=== PATIENT | female | born 1945 | race African-American/Black ===

== ENCOUNTER 2017-05-23 15:55 | Inpatient (IN) | payer MEDICARE, BC ==
[~2017-05-23] VITALS: Ht 165.1 cm; Wt 54.3 kg
[~2017-05-23 15:55] MED LIST: ADAL30TA10 PO; FLUTI220I INH; RHINSUS; ZOCO80TA PO; [UNRECOGNIZED DRUG - OTHER] PO; lumigan EACH EYE
[2017-05-23 16:08] VITALS: BP 173/79; PULSE 79; RESP 20; TEMP 98.5; O2SAT 96
[2017-05-23 17:24] LABS: AUTOMATED NEUTROPHIL # 2.6 TH/MM3 (1.8-7.7); BASOPHIL % 0.8 % (0.0-2.0); EOSINOPHIL # 0.1 TH/MM3 (0-0.4); EOSINOPHIL % 2.9 % (0.0-4.0); HEMATOCRIT 41.2 % (35.0-46.0); HEMOGLOBIN 13.8 GM/DL (11.6-15.3); LYMPH % 23.4 % (9.0-44.0); LYMPHOCYTE # 1.1 TH/MM3 (1.0-4.8); MEAN CELL VOLUME 76.2 FL (80.0-100.0); MEAN CORPUSCULAR HEMOGLOBIN 25.6 PG (27.0-34.0); MEAN CORPUSCULAR HGB CONC 33.6 % (32.0-36.0); MEAN PLATELET VOLUME 6.1 FL (7.0-11.0); MONO % 16.5 % (0.0-8.0); MONOCYTE # 0.8 TH/MM3 (0-0.9); NEUT % 56.4 % (16.0-70.0); PLATELET COUNT 432 TH/MM3 (150-450); RED CELL DISTRIBUTION WIDTH 13.4 % (11.6-17.2); WHITE BLOOD COUNT 4.7 TH/MM3 (4.0-11.0)
[2017-05-23 17:36] LABS: BICARBONATE 30.8 MEQ/L (21.0-32.0); BLOOD UREA NITROGEN 11 MG/DL (7-18); CHLORIDE 90 MEQ/L (98-107); GLOMERULAR FILTRATION RATE 85 ML/MIN (>89); GLUCOSE,RANDOM 96 MG/DL (74-106); SODIUM (NA) 125 MEQ/L (136-145)
[2017-05-23 17:40] LABS: TROPONIN I LESS THAN 0.02 NG/ML (0.02-0.05)
[2017-05-23 20:10] VITALS: BP 185/85; PULSE 72; RESP 18; O2SAT 100
[2017-05-23] MEDS ORDERED: LUMI0.01 EACH EYE (20:39)
[2017-05-23] MEDS ORDERED: DOXA4TAB3 PO (20:39)
[2017-05-23] MEDS ORDERED: FOSA70TA PO (20:39)
[2017-05-23] MEDS ORDERED: VENTAER INH (20:39)
[2017-05-23] MEDS ORDERED: AMPICILLIN (20:39)
[2017-05-23] MEDS ORDERED: FLUT50SP EACH NARE (20:39)
[2017-05-23] MEDS ORDERED: SERT-132 PO (20:39)
[2017-05-23] MEDS ORDERED: FLUTI44I INH (20:39)
[2017-05-23] MEDS ORDERED: LOVA40TA PO (20:39)
--- NOTE | 2017-05-23 21:20 | RADRPT ---
EXAM DATE/TIME: 05/23/2017 21:01 [facility] COMPARISON: No previous studies available for comparison. INDICATIONS : Shortness of breath. Patient had a fall due to increasing loss of balance about 2-3 hours ago. MEDICAL HISTORY : Hypertension. Asthma. SURGICAL HISTORY : Cyst removed from breast. ENCOUNTER: Initial ACUITY: 1 day PAIN SCORE: 0/10 LOCATION: Bilateral chest FINDINGS: A single view of the chest demonstrates the lungs to be symmetrically aerated without evidence of mas s, infiltrate or effusion. 8mm calcified granuloma lower lateral right lung. The cardiomediastinal contours are unremarkable. Moderate curvature of the thoracolumbar region convex towards the left.. CONCLUSION: No infiltrates seen. Jadon Hou MD on May 23, 2017 at 21:17 Board Certified Radiologist. This report was verified electronically.
--- NOTE | 2017-05-23 21:25 | PD ---
HPI Chief Complaint: General Weakness Time Seen by Provider: 20:32 Travel History International Travel<30 days: No Contact w/Intl Traveler<30days: No Traveled to known affect area: No History of Present Illness HPI Patient is a 72-year-old female presenting to the emergency department for evaluation of weakness. Caregivers are at bedside and state patient has had an increased amount of falls over the last several weeks, they report that her hands are shaky and she is forgetful. They state that she saw her primary doctor on Friday and nothing was done. They are concerned because patient lives alone, her sister will not be here until Friday. Patient denies any chest pain, shortness of breath, abdominal pain, headache. Caregivers believe that she may not be eating correctly or often enough. Symptom onset appears gradual, symptom severity is mild to moderate, there are no alleviating or exacerbating factors. They state that her primary doctor put her on antibiotics on Friday for a "slight UTI". Patient denies any dysuria. PFSH Past Medical History Asthma: Yes Cancer: No High Cholesterol: Yes Glaucoma: Yes Hypertension: Yes Medical other: Yes (hx of stomach ulcers in 1994 anemia with it) Respiratory: Yes (asthma) Immunizations Current: Yes Tetanus Vaccination: > 5 Years Influenza Vaccination: Yes Menopausal: Yes : 0 Past Surgical History Gynecologic Surgery: Yes (cyst removed from right and left breast left oophorectomy) Oral Surgery: Yes Other Surgery: Yes Social History Alcohol Use: Yes (wine at nite) Tobacco Use: No Substance Use: No Allergies-Medications (Allergen,Severity, Reaction): Coded Allergies: No Known Allergies (Unverified , 07/26/09) Reported Meds & Prescriptions Reported Meds & Active Scripts Active Reported Ventolin Hfa 18 GM Inh (Albuterol Sulfate) 90 Mcg/Act Aer 2 Puff INH Q4-6H PRN Fluticasone Nasal [place] 50 Mcg/Act Naspr 50 Mcg EACH NARE DIRECTED 50 mcg/spray Fosamax (Alendronate Sodium) 70 Mg Tab 70 Mg PO Q7D Lovastatin 40 Mg Tab 40 Mg PO DAILY Lumigan Opth Drops (Bimatoprost) 0.01% Soln 1 Drop EACH EYE HS Flovent Hfa 10.6 GM Inh (Fluticasone Propionate) 44 Mcg/Act Inh 2 Puff INH BID Use daily at the same time. Doxazosin (Doxazosin Mesylate) 4 Mg Tab 4 Mg PO DAILY [Ampicillin] Sertraline (Sertraline HCl) 50 Mg Tab 50 Mg PO DAILY Review of Systems Except as stated in HPI: all other systems reviewed are Neg HENT: No: Headaches Cardiovascular: No: Chest Pain or Discomfort Respiratory: No: Shortness of Breath Gastrointestinal: No: Nausea Genitourinary: No: Dysuria Musculoskeletal: No: Myalgias Neurologic: Positive: Weakness, Coordination Problem, Tremor Physical Exam Narrative GENERAL: Thin, well-developed, alert -[place]ian female. Presenting in no acute distress. SKIN: Warm and dry. HEAD: Atraumatic. Normocephalic. EYES: Pupils equal and round. No scleral icterus. No injection or drainage. ENT: No nasal bleeding or discharge. Mucous membranes pink and moist. NECK: Trachea midline. No JVD. CARDIOVASCULAR: Regular rate and rhythm. RESPIRATORY: No accessory muscle use. Clear to auscultation. Breath sounds equal bilaterally. GASTROINTESTINAL: Abdomen soft, non-tender, nondistended. Hepatic and splenic margins not palpable. MUSCULOSKELETAL: Extremities without clubbing, cyanosis. No obvious deformities. Trace nonpitting edema to bilateral lower extremities. NEUROLOGICAL: Awake and alert. No obvious cranial nerve deficits. Motor grossly within normal limits. Five out of 5 muscle strength in the arms and legs. Normal speech. PSYCHIATRIC: Appropriate mood and affect; insight and judgment normal. Data Data Last Documented VS Vital Signs Date Time Temp Pulse Resp B/P (MAP) Pulse Ox O2 Delivery O2 Flow Rate FiO2 05/23/17 21:54 69 18 154/77 (102) 100 Room Air 05/23/17 16:08 98.5 Orders Orders Complete Blood Count With Diff (05/23/17 16:13) Basic Metabolic Panel (Bmp) (05/23/17 16:13) Ckmb (Isoenzyme) Profile (05/23/17 16:13) Troponin I (05/23/17 16:13) B-Type Natriuretic Peptide (05/23/17 16:13) CKMB (05/23/17 16:40) CKMB% (05/23/17 16:40) Chest, Single Ap (05/23/17 ) Ct Brain W/O Iv Contrast(Rout) (05/23/17 ) Urinalysis - C+S If Indicated (05/23/17 20:58) Electrocardiogram (05/23/17 ) Free Thyroxine (T4) (05/23/17 16:40) Thyroid Stimulating Hormone (05/23/17 16:40) Sodium Chlor 0.9% 1000 Ml Inj (Ns 1000 M (05/23/17 21:45) Iv Access Insert/Monitor (05/23/17 21:45) Admit Order (Ed Use Only) (05/23/17 22:29) Labs Laboratory Tests Test 05/23/17 16:40 05/23/17 21:04 White Blood Count 4.7 TH/MM3 Red Blood Count 5.40 MIL/MM3 Hemoglobin 13.8 GM/DL Hematocrit 41.2 % Mean Corpuscular Volume 76.2 FL Mean Corpuscular Hemoglobin 25.6 PG Mean Corpuscular Hemoglobin Concent 33.6 % Red Cell Distribution Width 13.4 % Platelet Count 432 TH/MM3 Mean Platelet Volume 6.1 FL Neutrophils (%) (Auto) 56.4 % Lymphocytes (%) (Auto) 23.4 % Monocytes (%) (Auto) 16.5 % Eosinophils (%) (Auto) 2.9 % Basophils (%) (Auto) 0.8 % Neutrophils # (Auto) 2.6 TH/MM3 Lymphocytes # (Auto) 1.1 TH/MM3 Monocytes # (Auto) 0.8 TH/MM3 Eosinophils # (Auto) 0.1 TH/MM3 Basophils # (Auto) 0.0 TH/MM3 CBC Comment DIFF FINAL Differential Comment Blood Urea Nitrogen 11 MG/DL Creatinine 0.80 MG/DL Random Glucose 96 MG/DL Calcium Level 9.0 MG/DL Sodium Level 125 MEQ/L Potassium Level 4.3 MEQ/L Chloride Level 90 MEQ/L Carbon Dioxide Level 30.8 MEQ/L Anion Gap 4 MEQ/L Estimat Glomerular Filtration Rate 85 ML/MIN Total Creatine Kinase 454 U/L Creatine Kinase MB 8.9 NG/ML Creatine Kinase MB % 2.0 % Troponin I LESS THAN 0.02 NG/ML B-Type Natriuretic Peptide 50 PG/ML Free Thyroxine 1.43 NG/DL Thyroid Stimulating Hormone 3rd Gen 1.440 uIU/ML Urine Color YELLOW Urine Turbidity CLEAR Urine pH 7.0 Urine Specific [place] 1.012 Urine Protein NEG mg/dL Urine Glucose (UA) NEG mg/dL Urine Ketones NEG mg/dL Urine Occult Blood NEG Urine Nitrite NEG Urine Bilirubin NEG Urine Urobilinogen LESS THAN 2.0 MG/DL Urine Leukocyte Esterase SMALL Urine WBC 2 /hpf Urine Squamous Epithelial Cells 3 /hpf Urine Amorphous Sediment RARE Microscopic Urinalysis Comment CULT NOT INDICATED MDM Medical Decision Making Medical Screen Exam Complete: Yes Emergency Medical Condition: Yes Interpretation(s) Laboratory Tests Test 05/23/17 16:40 05/23/17 21:04 White Blood Count 4.7 TH/MM3 Red Blood Count 5.40 MIL/MM3 Hemoglobin 13.8 GM/DL Hematocrit 41.2 % Mean Corpuscular Volume 76.2 FL Mean Corpuscular Hemoglobin 25.6 PG Mean Corpuscular Hemoglobin Concent 33.6 % Red Cell Distribution Width 13.4 % Platelet Count 432 TH/MM3 Mean Platelet Volume 6.1 FL Neutrophils (%) (Auto) 56.4 % Lymphocytes (%) (Auto) 23.4 % Monocytes (%) (Auto) 16.5 % Eosinophils (%) (Auto) 2.9 % Basophils (%) (Auto) 0.8 % Neutrophils # (Auto) 2.6 TH/MM3 Lymphocytes # (Auto) 1.1 TH/MM3 Monocytes # (Auto) 0.8 TH/MM3 Eosinophils # (Auto) 0.1 TH/MM3 Basophils # (Auto) 0.0 TH/MM3 CBC Comment DIFF FINAL Differential Comment Blood Urea Nitrogen 11 MG/DL Creatinine 0.80 MG/DL Random Glucose 96 MG/DL Calcium Level 9.0 MG/DL Sodium Level 125 MEQ/L Potassium Level 4.3 MEQ/L Chloride Level 90 MEQ/L Carbon Dioxide Level 30.8 MEQ/L Anion Gap 4 MEQ/L Estimat Glomerular Filtration Rate 85 ML/MIN Total Creatine Kinase 454 U/L Creatine Kinase MB 8.9 NG/ML Creatine Kinase MB % 2.0 % Troponin I LESS THAN 0.02 NG/ML B-Type Natriuretic Peptide 50 PG/ML Free Thyroxine 1.43 NG/DL Thyroid Stimulating Hormone 3rd Gen 1.440 uIU/ML Urine Color YELLOW Urine Turbidity CLEAR Urine pH 7.0 Urine Specific [place] 1.012 Urine Protein NEG mg/dL Urine Glucose (UA) NEG mg/dL Urine Ketones NEG mg/dL Urine Occult Blood NEG Urine Nitrite NEG Urine Bilirubin NEG Urine Urobilinogen LESS THAN 2.0 MG/DL Urine Leukocyte Esterase SMALL Urine WBC 2 /hpf Urine Squamous Epithelial Cells 3 /hpf Urine Amorphous Sediment RARE Microscopic Urinalysis Comment CULT NOT INDICATED Vital Signs Date Time Temp Pulse Resp B/P (MAP) Pulse Ox O2 Delivery O2 Flow Rate FiO2 05/23/17 20:10 72 18 185/85 (118) 100 Room Air 05/23/17 16:08 98.5 79 20 173/79 (110) 96 Differential Diagnosis UTI versus metabolic abnormality versus dementia versus cardiac arrhythmia versus other Narrative Course Patient is a 72-year-old female brought in by her caregivers for evaluation of gait abnormality, increased falls and forgetfulness. Patient's vital signs are stable, labs and imaging ordered and pending. CBC with no acute findings. Chemistry with a sodium of 125, total CK 454 BNP is 50 Free T4 and TSH are within normal limits. Urinalysis is unremarkable Chest x-ray is negative for acute abnormality CT scan of the brain which is read by the radiologist shows prominence of the ventricles without cortical atrophy suggesting the possibility of normal pressure hydrocephalus. No evidence of mass-effect or hemorrhage. Pansinus disease. Patient was given 1 L of IV fluids. Findings were discussed with my attending physician. Discussed with Dr. Reuben Singh who accepted admission. Admit orders placed. Caregivers and patient advised on all findings. Patient is agreeable stay. Patient is resting comfortably, she has no complaints at this time. Diagnosis Primary Impression: Hyponatremia Additional Impressions: Hydrocephalus Gait abnormality Frequent falls Admitting Information Admitting Physician Requests: Admit Condition: Stable Katherine Patino May 23, 2017 21:25
[2017-05-23 21:44] LABS: AMORPHOUS SEDIMENT, URINE RARE; BILIRUBIN, URINE NEG (NEG); BLOOD, URINE NEG (NEG); GLUCOSE,URINE NEG (NEG); KETONE, URINE NEG (NEG); NITRITE,URINE NEG (NEG); SQUAMOUS EPITHELIAL CELL URINE 3 /hpf (0-5); URINE COLOR YELLOW (YELLW/STRAW); URINE LEUKOCYTE ESTERASE SMALL (NEG)
[2017-05-23] MEDS ORDERED: SODIUM CHLOR 0.9% 1000 ML INJ 1,000 ML IV ONE (21:45)
[2017-05-23 21:54] VITALS: BP 154/77; PULSE 69; RESP 18; O2SAT 100
[2017-05-23 21:56] LABS: FREE T4 1.43 NG/DL (0.76-1.46)
--- NOTE | 2017-05-23 21:56 | RADRPT ---
EXAM DATE/TIME: 05/23/2017 21:25 [facility] COMPARISON: No previous studies available for comparison. INDICATIONS : Patient fell, complains of weakness in both legs. RADIATION DOSE: 36.97 CTDIvol (mGy) MEDICAL HISTORY : Hypertension. SURGICAL HISTORY : None. ENCOUNTER: Initial ACUITY: 1 day PAIN SCALE: 0/10 LOCATION: cranial TECHNIQUE: Multiple contiguous axial images were obtained of the head. Using automated exposure control and adj ustment of the mA and/or kV according to patient size, radiation dose was kept as low as reasonably a chievable to obtain optimal diagnostic quality images. DICOM format image data is available electro nically for review and comparison. FINDINGS: CEREBRUM: The ventricles are prominent, out of proportion to the sulci and basal cisterns. The margins of the ventricles are smooth and no periventricular hypodensities seen.. No evidence of midline shift, mass lesion, hemorrhage or acute infarction. No extra-axial fluid collections are seen. POSTERIOR FOSSA: The cerebellum and brainstem are intact. The 4th ventricle is enlarged and in the midline. The cere bellopontine angle is unremarkable. EXTRACRANIAL: The visualized portion of the orbits is intact. Smaller fluid level maxillary sinus, a few opacified bilateral ethmoid air cells and opacified right frontal sinus. Air-fluid level in right sphenoid si nus. SKULL: The calvaria is intact. No evidence of skull fracture. CONCLUSION: 1. Prominence of the ventricles without cortical atrophy suggests the possibility of normal pressure hydrocephalus. 2. No evidence of mass effect or hemorrhage. 3. Pansinus disease. Jadon Hou MD on May 23, 2017 at 21:53 Board Certified Radiologist. This report was verified electronically.
[2017-05-23] MEDS ORDERED: LACTULOSE SYRUP 20 GM/30 ML CUP PO PRN (22:45)
[2017-05-23] MEDS ORDERED: ONDANSETRON HCL 4 MG/2 ML VIAL IVP PRN (22:45)
[2017-05-23] MEDS ORDERED: SENNOSIDES 8.6 MG TAB PO PRN (22:45)
[2017-05-23] MEDS ORDERED: ACETAMINOPHEN 325 MG TAB PO PRN (22:45)
[2017-05-23] MEDS ORDERED: SODIUM CHLORIDE 0.9% FLUSH 10 ML FLUSH IV FLUSH PRN (22:45)
[2017-05-23] MEDS ORDERED: BISACODYL 10 MG SUPP RECTAL PRN (22:45)
[2017-05-23] MEDS ORDERED: NALOXONE HCL 0.4 MG/ML AMP IV PUSH PRN (22:45)
[2017-05-23] MEDS ORDERED: MAGNESIUM HYDROXIDE SUSP 30 ML CUP PO PRN (22:45)
[2017-05-23 23:45] VITALS: BP 166/89; PULSE 70; RESP 17; TEMP 97.1; O2SAT 100
[2017-05-24] VITALS (7 sets, daily range): BP systolic 92–155; BP diastolic 52–84; PULSE 67–88; RESP 17–18; TEMP 96.5–97.8; O2SAT 96–99
[2017-05-24 07:06] LABS: AUTOMATED NEUTROPHIL # 2.1 TH/MM3 (1.8-7.7); BASOPHIL % 0.3 % (0.0-2.0); EOSINOPHIL # 0.2 TH/MM3 (0-0.4); EOSINOPHIL % 4.2 % (0.0-4.0); HEMATOCRIT 41.9 % (35.0-46.0); HEMOGLOBIN 14.3 GM/DL (11.6-15.3); LYMPH % 31.5 % (9.0-44.0); LYMPHOCYTE # 1.4 TH/MM3 (1.0-4.8); MEAN CELL VOLUME 75.9 FL (80.0-100.0); MEAN CORPUSCULAR HEMOGLOBIN 25.9 PG (27.0-34.0); MEAN CORPUSCULAR HGB CONC 34.1 % (32.0-36.0); MONO % 16.7 % (0.0-8.0); MONOCYTE # 0.7 TH/MM3 (0-0.9); NEUT % 47.3 % (16.0-70.0); PLATELET COUNT 377 TH/MM3 (150-450); RED BLOOD COUNT 5.52 MIL/MM3 (4.00-5.30); RED CELL DISTRIBUTION WIDTH 13.7 % (11.6-17.2); WHITE BLOOD COUNT 4.4 TH/MM3 (4.0-11.0)
[2017-05-24 07:35] LABS: ALBUMIN 3.3 GM/DL (3.4-5.0); AST (GOT) 29 U/L (15-37); BICARBONATE 26.1 MEQ/L (21.0-32.0); BLOOD UREA NITROGEN 6 MG/DL (7-18); CALCIUM 8.4 MG/DL (8.5-10.1); CHLORIDE 94 MEQ/L (98-107); CREATININE 0.64 MG/DL (0.50-1.00); GLOMERULAR FILTRATION RATE 110 ML/MIN (>89); GLUCOSE,RANDOM 91 MG/DL (74-106); MAGNESIUM 2.3 MG/DL (1.5-2.5); SODIUM (NA) 129 MEQ/L (136-145)
[2017-05-24 07:36] LABS: ALT (GPT) 28 U/L (10-53)
[2017-05-24 08:01] LABS: ALKALINE PHOSPHATASE 73 U/L (45-117); C-REACTIVE PROTEIN LESS THAN 0.29 MG/DL (0.00-0.30); TOTAL BILIRUBIN ADULT 0.6 MG/DL (0.2-1.0); TOTAL PROTEIN 7.1 GM/DL (6.4-8.2)
[2017-05-24] MEDS: HEPARIN SODIUM - SQ 10,000 UNITS/ML VIAL SQ SCH ×2 (08:58→20:13)
[2017-05-24] MEDS: DOCUSATE SODIUM 50 MG/SENNA 8.6 MG TAB PO SCH ×2 (08:59→20:13)
[2017-05-24] MEDS: SODIUM CHLORIDE 0.9% FLUSH 10 ML FLUSH IV FLUSH SCH ×2 (08:59→20:12)
--- NOTE | 2017-05-24 10:19 | HHI.HP ---
History of Present Illness Service INTERNAL MEDICINE Primary Care Physician REUBEN SINGH MD Admission Diagnosis HYPONATREMIA. NORMAL PRESSURE HYDROCEPHALUS. Diagnoses: History of Present Illness This patient is a 72 year old female who has a history of showing progressive deterioration of her overall status over the past three to four weeks. A neighbor and friend has witnessed changes that relate to her difficulty with ambulation and memory. She has further reported that the patient is periodically seeing things that are not present. She was evaluated in the office and a mini mental exam was done whereby the patient scored 27/30 on the examination. She was noticed to have an unsteady gait as well. Plans were made for the patient to have brain imaging and appointment to have assessment by Neurology. She now presents due to further deterioration of her status to the point of fear for her safety of living alone. There is report that there are indications that she is without good nutritional intake as well. For these reasons, she is brought to the [facility] for assessment. She is found with a low sodium level and CT of the Brain shows findings that are concerning for the presence of normal pressure hydrocephalus. She is admitted to the hospital in this regard for further assessment and treatment. Review of Systems ROS Limitations: Poor Historian Gastrointestinal: COMPLAINS OF: Anorexia Neurologic: COMPLAINS OF: Abnormal gait, Poor Balance Psychiatric: COMPLAINS OF: Hallucinations Past Family Social History Allergies: Coded Allergies: No Known Allergies (Unverified , 07/26/09) Past Medical History 1. Hypertension. 2. Hyperlipidemia. 3. Osteoporosis. 4. Seasonal Allergies. 5. Asthma. 6. Chronic Sinusitis. 7. Nasal Polyps. 8. Glaucoma. 9. Depression. Past Surgical History 1. Breast Cyst Removal in 1963. 2. Right Ovary Removed in 1972. 3. Breast Cyst Removal in 1978. 4. Breast Biopsy done in 1983. 5. Family History Father- at age 55 and his health status is unknown. Mother- at age 47 and she had a history of Cerebral Aneurysm and Brain Tumor. Brother- alive at age 59 and health status in not known. Brother- at age 50 secondary to pancreatic cancer. Brother- at age 46 secondary to lung cancer. Sister- at age 44 secondary to lung cancer. Sister-age 76, Sister-age 75, Sister-age 70 and Sister-age 62 are alive with their health status not known to her. She reports having no children. Social History She was born in [place], [place] and her education is through high school and six years beyond. She previously worked as a teacher. She enjoys hobbies as sewing , decorating and painting. She is of nonsmoking status and alcohol intake is about 2 glasses of wine daily. There is no use of recreational drugs. Physical Exam Vital Signs Vital Signs Date Time Temp Pulse Resp B/P (MAP) Pulse Ox O2 Delivery O2 Flow Rate FiO2 05/24/17 08:00 96.7 67 17 148/83 (104) 96 05/24/17 08:00 88 05/24/17 04:45 97.1 70 17 155/84 (107) 98 05/23/17 23:45 97.1 70 17 166/89 (114) 100 05/23/17 23:07 05/23/17 21:54 69 18 154/77 (102) 100 Room Air 05/23/17 20:10 72 18 185/85 (118) 100 Room Air 05/23/17 16:08 98.5 79 20 173/79 (110) 96 Physical Exam GENERAL: This is a well-nourished appearing patient who appears in no apparent distress. SKIN: No rashes, ecchymoses or lesions. It is cool and dry. HEAD: Atraumatic. Normocephalic. No temporal or scalp tenderness. EYES: Pupils equal round and reactive. Extraocular motions intact. No scleral icterus. No injection or drainage. ENT: Nose without bleeding, purulent drainage or septal hematoma. Throat without erythema, tonsillar hypertrophy or exudate. Uvula midline. Airway patent. NECK: Trachea midline. No JVD or lymphadenopathy. Supple, nontender and no meningeal signs. CARDIOVASCULAR: Regular rhythm with a normal rate. There are no murmurs, gallops or rubs. RESPIRATORY: Clear to auscultation. Breath sounds equal bilaterally. No wheezes , rales, or rhonchi. GASTROINTESTINAL: Abdomen soft, non-tender, nondistended. No hepato-splenomegaly , or palpable masses. No guarding. MUSCULOSKELETAL: Extremities without clubbing, cyanosis or edema. No joint tenderness, effusion or edema noted. No calf tenderness. Negative Homans sign bilaterally. NEUROLOGICAL: Awake and alert. Cranial nerves II through XII intact. Motor not fully tested. Five out of 5 muscle strength in all muscle groups. Normal speech. Laboratory Laboratory Tests Test 05/23/17 16:40 05/23/17 21:04 05/24/17 06:43 White Blood Count 4.7 4.4 Red Blood Count 5.40 5.52 Hemoglobin 13.8 14.3 Hematocrit 41.2 41.9 Mean Corpuscular Volume 76.2 75.9 Mean Corpuscular Hemoglobin 25.6 25.9 Mean Corpuscular Hemoglobin Concent 33.6 34.1 Red Cell Distribution Width 13.4 13.7 Platelet Count 432 377 Mean Platelet Volume 6.1 6.0 Neutrophils (%) (Auto) 56.4 47.3 Lymphocytes (%) (Auto) 23.4 31.5 Monocytes (%) (Auto) 16.5 16.7 Eosinophils (%) (Auto) 2.9 4.2 Basophils (%) (Auto) 0.8 0.3 Neutrophils # (Auto) 2.6 2.1 Lymphocytes # (Auto) 1.1 1.4 Monocytes # (Auto) 0.8 0.7 Eosinophils # (Auto) 0.1 0.2 Basophils # (Auto) 0.0 0.0 CBC Comment DIFF FINAL DIFF FINAL Differential Comment Blood Urea Nitrogen 11 6 Creatinine 0.80 0.64 Random Glucose 96 91 Calcium Level 9.0 8.4 Sodium Level 125 129 Potassium Level 4.3 4.0 Chloride Level 90 94 Carbon Dioxide Level 30.8 26.1 Anion Gap 4 9 Estimat Glomerular Filtration Rate 85 110 Total Creatine Kinase 454 286 Creatine Kinase MB 8.9 5.6 Creatine Kinase MB % 2.0 2.0 Troponin I LESS THAN 0.02 B-Type Natriuretic Peptide 50 Free Thyroxine 1.43 Thyroid Stimulating Hormone 3rd Gen 1.440 Urine Color YELLOW Urine Turbidity CLEAR Urine pH 7.0 Urine Specific [place] 1.012 Urine Protein NEG Urine Glucose (UA) NEG Urine Ketones NEG Urine Occult Blood NEG Urine Nitrite NEG Urine Bilirubin NEG Urine Urobilinogen LESS THAN 2.0 Urine Leukocyte Esterase SMALL Urine WBC 2 Urine Squamous Epithelial Cells 3 Urine Amorphous Sediment RARE Microscopic Urinalysis Comment CULT NOT INDICATED Erythrocyte Sedimentation Rate 1 Total Protein 7.1 Albumin 3.3 Magnesium Level 2.3 Alkaline Phosphatase 73 Aspartate Amino Transf (AST/SGOT) 29 Alanine Aminotransferase (ALT/SGPT) 28 Total Bilirubin 0.6 C-Reactive Protein LESS THAN 0.29 Vitamin B12 Level 718 Result Diagram: 3/10/18 0643 05/24/17642 Caprini VTE Risk Assessment Caprini VTE Risk Assessment: Mod/High Risk (score >= 2) Caprini Risk Assessment Model Point Value = 1 Point Value = 2 Point Value = 3 Point Value = 5 Age 41-60 Minor surgery BMI > 25 kg/m2 Swollen legs Varicose veins or History of unexplained or recurrent spontaneous Oral contraceptives or hormone replacement Sepsis (< 1 month) Serious lung disease, including pneumonia (< 1 month) Abnormal pulmonary function Acute myocardial infarction Congestive heart failure (< 1 month) History of inflammatory bowel disease Medical patient at bed rest Age 61-74 Arthroscopic surgery Major open surgery (> 45 min) Laparoscopic surgery (> 45 min) Malignancy Confined to bed (> 72 hours) Immobilizing plaster cast Central venous access Age >= 75 History of VTE Family history of VTE Factor V Leiden Prothrombin [id number] Lupus anticoagulant Anticardiolipin antibodies Elevated serum homocysteine Heparin-induced thrombocytopenia Other congenital or acquired thrombophilia Stroke (< 1 month) Elective arthroplasty Hip, pelvis, or leg fracture Acute spinal cord injury (< 1 month) Prophylaxis Regimen Total Risk Factor Score Risk Level Prophylaxis Regimen 0-1 Low Early ambulation 2 Moderate Order ONE of the following: *Sequential Compression Device (SCD) *Heparin 5000 units SQ BID 3-4 Higher Order ONE of the following medications: *Heparin 5000 units SQ TID *Enoxaparin/Lovenox 40 mg SQ daily (WT < 150 kg, CrCl > 30 mL/min) *Enoxaparin/Lovenox 30 mg SQ daily (WT < 150 kg, CrCl > 10-29 mL/min) *Enoxaparin/Lovenox 30 mg SQ BID (WT < 150 kg, CrCl > 30 mL/min) AND/OR *Sequential Compression Device (SCD) 5 or more Highest Order ONE of the following medications: *Heparin 5000 units SQ TID (Preferred with Epidurals) *Enoxaparin/Lovenox 40 mg SQ daily (WT < 150 kg, CrCl > 30 mL/min) *Enoxaparin/Lovenox 30 mg SQ daily (WT < 150 kg, CrCl > 10-29 mL/min) *Enoxaparin/Lovenox 30 mg SQ BID (WT < 150 kg, CrCl > 30 mL/min) AND *Sequential Compression Device (SCD) Assessment and Plan Assessment and Plan ASSESSMENT 1. Hyponatremia. 2. Normal Pressure Hydrocephalus. 3. Pansinusitis. 4. Hypertension. 5. Hyperlipidemia. 6. Osteoporosis. 7. Depression. 8. Glaucoma. PLAN 1. Admit to the hospital as an Inpatient. 2. MRI of the Brain. 3. Consultation to Neurology. 4. Fluid Restriction per 24 hours. 5. Intravenous antibiotics. 6. Follow up laboratory assessment. 7. DVT and PE prophylaxis. Reuben Singh MD May 24, 2017 10:19
[2017-05-24] MEDS ORDERED: GADODIAMIDE PF 287 MG/ML 10 ML VIAL (for RAD MRI) IVCONTRAST ONE (11:34)
--- NOTE | 2017-05-24 11:52 | RADRPT ---
EXAM DATE/TIME: 05/24/2017 11:14 [facility] COMPARISON: CT BRAIN W/O CONTRAST, May 23, 2017, 21:25. INDICATIONS : Confusion. CONTRAST: 10 cc Omniscan (gadodiamide) IV MEDICAL HISTORY : Hypertension. SURGICAL HISTORY : None. ENCOUNTER: Initial ACUITY: 1 day PAIN SCORE: 0/10 LOCATION: cranial TECHNIQUE: Multiplanar, multisequence MRI of the brain was performed both prior to and following the administrat ion of paramagnetic contrast. FINDINGS: CEREBRUM: The ventricles are moderately to markedly enlarged.. No evidence of midline shift, mass lesion, hemo rrhage or acute infarction. No extraaxial fluid collections are seen. The pituitary gland and supra sellar cistern are normal in configuration. WHITE MATTER: Minimal periventricular T2 hyperintensity is noted. A few very small foci of hyperintensity are ident ified in the periventricular white matter as well. POSTERIOR FOSSA: The cerebellum and brainstem are intact. The 4th ventricle is midline. The cerebellopontine angle is unremarkable. The cerebellar tonsils are normal in position. DIFFUSION IMAGING: No focal areas of restricted diffusion are seen. No evidence of acute infarction. EXTRACRANIAL: The visualized portions of the orbits are unremarkable. The right frontal sinus remains opacified. POST-CONTRAST: No abnormal areas of parenchymal or dural enhancement. No evidence of blood-brain barrier breakdown. CONCLUSION: 1. Ventriculomegaly. Further evaluation should be considered if patient has symptomatology characteri stic of normal pressure hydrocephalus. 2. No evidence of acute infarct, hemorrhage, mass, edema or enhancing lesions. 3. Right frontal sinus opacification. Michael Berry MD on May 24, 2017 at 11:47 Board Certified Radiologist. This report was verified electronically.
[2017-05-24] MEDS: cefTRIAXone INJ 1,000 MG in SODIUM CHLORIDE 0.9% INJ 100 ML IV SCH (12:24)
[2017-05-24 15:58] LABS: C-REACTIVE PROTEIN LESS THAN 0.29 MG/DL (0.00-0.30)
[2017-05-24 15:59] LABS: RHEUMATOID FACTOR SCREEN NEGATIVE (NEGATIVE)
[2017-05-24] MEDS: CARBIDOPA/LEVODOPA 25 MG/100 MG TAB PO SCH (16:06)
[2017-05-24 16:11] LABS: FOLATE 7.8 NG/ML (3.1-17.5)
[2017-05-25] VITALS (9 sets, daily range): BP systolic 81–141; BP diastolic 51–80; PULSE 65–77; RESP 17–18; TEMP 96.3–98.4; O2SAT 96–100
--- NOTE | 2017-05-25 00:05 | EKG ---
Date Performed: 05/23/2017 Time Performed: 21:47:38 PTAGE: 72 years EKG: Sinus rhythm WITH FIRST DEGREE AV BLOCK POSSIBLE LEFT ATRIAL ENLARGEMENT SEPTAL MYOCARDIAL INFARCTION ABNORMAL EC G PREVIOUS TRACING : 07/25/2009 10.40 Compared to prior tracing, now with first degree AV block DOCTOR: Jim Stringer Interpretating Date/Time 05/25/2017 00:04:07
[2017-05-25] MEDS: CARBIDOPA/LEVODOPA 25 MG/100 MG TAB PO SCH ×5 (06:12→20:39)
[2017-05-25 07:04] LABS: AUTOMATED NEUTROPHIL # 1.7 TH/MM3 (1.8-7.7); BASOPHIL % 0.3 % (0.0-2.0); EOSINOPHIL # 0.1 TH/MM3 (0-0.4); EOSINOPHIL % 2.6 % (0.0-4.0); HEMATOCRIT 40.2 % (35.0-46.0); HEMOGLOBIN 13.4 GM/DL (11.6-15.3); LYMPH % 38.7 % (9.0-44.0); LYMPHOCYTE # 1.6 TH/MM3 (1.0-4.8); MEAN CELL VOLUME 76.3 FL (80.0-100.0); MEAN CORPUSCULAR HEMOGLOBIN 25.5 PG (27.0-34.0); MEAN CORPUSCULAR HGB CONC 33.4 % (32.0-36.0); MEAN PLATELET VOLUME 5.9 FL (7.0-11.0); MONO % 16.7 % (0.0-8.0); MONOCYTE # 0.7 TH/MM3 (0-0.9); NEUT % 41.7 % (16.0-70.0); PLATELET COUNT 381 TH/MM3 (150-450); RED BLOOD COUNT 5.27 MIL/MM3 (4.00-5.30); RED CELL DISTRIBUTION WIDTH 13.7 % (11.6-17.2); WHITE BLOOD COUNT 4.1 TH/MM3 (4.0-11.0)
[2017-05-25 07:45] LABS: ALBUMIN 3.1 GM/DL (3.4-5.0); ALT (GPT) 15 U/L (10-53); AST (GOT) 24 U/L (15-37); BLOOD UREA NITROGEN 7 MG/DL (7-18); CALCIUM 8.3 MG/DL (8.5-10.1); CHLORIDE 96 MEQ/L (98-107); CREATININE 0.57 MG/DL (0.50-1.00); GLOMERULAR FILTRATION RATE 126 ML/MIN (>89); GLUCOSE,RANDOM 91 MG/DL (74-106); SODIUM (NA) 129 MEQ/L (136-145)
[2017-05-25 07:48] LABS: ALKALINE PHOSPHATASE 64 U/L (45-117); TOTAL BILIRUBIN ADULT 0.5 MG/DL (0.2-1.0); TOTAL PROTEIN 6.5 GM/DL (6.4-8.2)
[2017-05-25] MEDS: DOCUSATE SODIUM 50 MG/SENNA 8.6 MG TAB PO SCH ×2 (07:56→20:39)
[2017-05-25] MEDS: HEPARIN SODIUM - SQ 10,000 UNITS/ML VIAL SQ SCH ×2 (07:56→20:39)
[2017-05-25] MEDS: SODIUM CHLORIDE 0.9% FLUSH 10 ML FLUSH IV FLUSH SCH ×2 (07:57→20:39)
--- NOTE | 2017-05-25 08:56 | HHI.PR ---
Subjective Remarks some low bp standing into 94/ Objective Vital Signs Date Time Temp Pulse Resp B/P (MAP) Pulse Ox O2 Delivery O2 Flow Rate FiO2 05/25/17 08:00 96.6 71 18 141/75 (97) 98 98/66 (77) 81/51 (61) 05/25/17 04:00 97.7 77 17 130/80 (97) 96 05/25/17 03:46 75 05/25/17 00:24 65 05/24/17 23:30 97.8 76 18 125/77 (93) 98 05/24/17 22:58 Room Air 05/24/17 20:10 70 05/24/17 19:56 97.8 71 17 113/69 (84) 99 105/67 (80) 95/57 (70) 05/24/17 16:00 96.5 72 18 128/77 (94) 98 120/77 (91) 101/62 (75) 05/24/17 12:05 96.7 69 18 92/52 (65) 99 I/O 05/24/17 05/24/17 05/24/17 05/25/17 05/25/17 05/25/17 07:00 15:00 23:00 07:00 15:00 23:00 Intake Total 120 ml 720 ml 360 ml 480 ml Balance 120 ml 720 ml 360 ml 480 ml Intake Oral 120 ml 720 ml 360 ml 480 ml # Voids 5 2 4 3 # Bowel Movements 0 0 1 0 Result Diagram: 05/25/17 0648 05/25/17 0648 Objective Remarks awake motor system still poor gait and retropulses 45 min after sinemet dose this am rue cogwheel this am Assessment and Plan Assessment and Plan imp labs ok stand bp low not great change after few doses sinemet inc frequency sister coming into town may need csf drain for nph when she does oob PT Isaac Winston MD May 25, 2017 08:56
--- NOTE | 2017-05-25 09:32 | HHI.PR ---
Subjective Remarks She appears to be calm and in no apparent distress. Neurology has started medication and she appears to be with good tolerance. She is not showing any major improvement changes thus far. Objective - Vital Signs Date Time Temp Pulse Resp B/P (MAP) Pulse Ox O2 Delivery O2 Flow Rate FiO2 05/25/17 08:00 96.6 71 18 141/75 (97) 98 98/66 (77) 81/51 (61) 05/25/17 04:00 97.7 77 17 130/80 (97) 96 05/25/17 03:46 75 05/25/17 00:24 65 05/24/17 23:30 97.8 76 18 125/77 (93) 98 05/24/17 22:58 Room Air 05/24/17 20:10 70 05/24/17 19:56 97.8 71 17 113/69 (84) 99 105/67 (80) 95/57 (70) 05/24/17 16:00 96.5 72 18 128/77 (94) 98 120/77 (91) 101/62 (75) 05/24/17 12:05 96.7 69 18 92/52 (65) 99 I/O 05/24/17 05/24/17 05/24/17 05/25/17 05/25/17 05/25/17 07:00 15:00 23:00 07:00 15:00 23:00 Intake Total 120 ml 720 ml 360 ml 480 ml Balance 120 ml 720 ml 360 ml 480 ml Intake Oral 120 ml 720 ml 360 ml 480 ml # Voids 5 2 4 3 # Bowel Movements 0 0 1 0 Result Diagram: 05/25/1748 05/25/17 0648 Objective Remarks GENERAL: Alert, though with some evidence of mild confusion. SKIN: Warm and dry. HEAD: Normocephalic. Atraumatic. EYES: Pupils are equal and reactive to light. No scleral icterus. No injection or drainage. NECK: Supple, trachea midline. No JVD or lymphadenopathy. CARDIOVASCULAR: Regular rate and rhythm without murmurs, gallops, or rubs. RESPIRATORY: Breath sounds equal bilaterally. No accessory muscle use. GASTROINTESTINAL: Abdomen soft, non-tender, nondistended. MUSCULOSKELETAL: No cyanosis, or edema. Pulses are at 3+/4+. BACK: Nontender without obvious deformity. No CVA tenderness. NEUROLOGICAL: Memory is still somewhat fair at best. Unsteady when standing. A/P Assessment and Plan ASSESSMENT 1. Hyponatremia. 2. Orthostatic Hypotension. 3. Normal Pressure Hydrocephalus. 4. Pansinusitis. 5. Hypertension. 6. Hyperlipidemia. 7. Osteoporosis. 8. Depression. 9. Glaucoma. PLAN 1. Continue with the fluid restriction. 2. Encouraged good nutritional intake. 3. Neurology follows. 4. Physical Therapy continues. 5. Continue with intravenous antibiotics. 6. Follow up laboratory assessment. 7. DVT and PE prophylaxis. Reuben Singh MD May 25, 2017 09:32
[2017-05-25] MEDS: cefTRIAXone INJ 1,000 MG in SODIUM CHLORIDE 0.9% INJ 100 ML IV SCH (12:09)
[2017-05-26] VITALS (8 sets, daily range): BP systolic 75–165; BP diastolic 55–88; PULSE 64–89; RESP 16–18; TEMP 95.8–96.7; O2SAT 96–100
--- NOTE | 2017-05-26 06:57 | HHI.PR ---
Subjective Remarks some low bp standing into 81/ Objective Vital Signs Date Time Temp Pulse Resp B/P (MAP) Pulse Ox O2 Delivery O2 Flow Rate FiO2 05/26/17 03:25 96.4 64 17 144/74 (97) 100 05/26/17 01:25 96.7 70 17 128/77 (94) 99 05/25/17 23:49 68 05/25/17 22:57 Room Air 05/25/17 20:40 96.6 73 18 129/73 (91) 98 111/66 (81) 05/25/17 20:04 70 05/25/17 16:00 98.4 75 18 108/71 (83) 100 90/68 (75) 05/25/17 12:00 96.3 76 17 102/67 (79) 99 104/64 (77) 05/25/17 08:00 96.6 71 18 141/75 (97) 98 98/66 (77) 81/51 (61) I/O 05/25/17 05/25/17 05/25/17 05/26/17 05/26/17 05/26/17 07:00 15:00 23:00 07:00 15:00 23:00 Intake Total 480 ml 300 ml 150 ml 100 ml Balance 480 ml 300 ml 150 ml 100 ml Intake Oral 480 ml 300 ml 150 ml 100 ml # Voids 3 2 # Bowel Movements 0 0 Result Diagram: 05/25/17 0648 05/25/17 0648 Objective Remarks awake rue cogwheel mild this am ob Assessment and Plan Assessment and Plan imp labs ok x na 129 stand bp low not great change after few doses sinemet inc frequency sister coming into town may need csf drain for nph when she does oob PT i will dw them today check echo for low bp problem is fluid restricted but need higher standing bp Isaac Winston MD May 26, 2017 06:57
[2017-05-26] MEDS: DOCUSATE SODIUM 50 MG/SENNA 8.6 MG TAB PO SCH ×2 (07:50→20:26)
[2017-05-26] MEDS: HEPARIN SODIUM - SQ 10,000 UNITS/ML VIAL SQ SCH ×2 (07:50→20:28)
[2017-05-26] MEDS: CARBIDOPA/LEVODOPA 25 MG/100 MG TAB PO SCH ×4 (07:50→20:26)
[2017-05-26] MEDS: SODIUM CHLORIDE 0.9% FLUSH 10 ML FLUSH IV FLUSH SCH ×2 (08:32→20:28)
[2017-05-26 10:59] LABS: RPR SCREEN FOR REFLEX NON-REACTIVE (NON-REACTVE)
[2017-05-26] MEDS: cefTRIAXone INJ 1,000 MG in SODIUM CHLORIDE 0.9% INJ 100 ML IV SCH (11:48)
--- NOTE | 2017-05-26 13:23 | MB ---
cc: Isaac Winston MD DATE OF CONSULT: 05/24/2017 HISTORY OF PRESENT ILLNESS: The patient is a 72-year-old right handed woman with a history of hypertension, hypercholesterolemia, heart murmur she says after high school. She takes 81 mg of aspirin a day. She also has a history of asthma. She states that she lives alone and for the last few weeks she has had trouble with her balance. She states she was a runner in college and decided after one of her exercise days that she wanted to try and jog and she had a lot of difficulty with that with her balance being off. The last few weeks she thinks she has fallen about 3 times. She denies any urinary incontinence. She does have a history of headaches and she has had some lately but not any different than her typical headaches. She denies light-headedness, dizziness, chest pain or palpitations. She has not had numbness or tingling on one side or any change in her speech or difficulty talking. She also notes that she has been having a lot of shaking lately in her hands, in her legs. Prior to a few weeks ago, she states she has had no difficulty walking. She denies any odd smells, tongue. REVIEW OF SYSTEMS: She denies diabetes, myocardial infarction, bypass, stents, angioplasty, atrial fibrillation. She does not take any other blood thinners, renal disease, hepatic disease, pulmonary disease, thyroid disease, ulcer, cancer, seizure, stroke. She has no other major medical conditions. SOCIAL HISTORY: She lives by herself. She is a non-smoker. She does occasionally drink wine but not every day. She does not do drugs. FAMILY HISTORY: She has 2 brothers and a sister with lung cancer, otherwise negative for seizure or stroke. MEDICATIONS AT HOME: Inhaler, Fosamax, eyedrops, doxazosin, nasal spray, Flovent, lovastatin, sertraline, ampicillin given by her primary care. MEDICATIONS IN THE HOSPITAL: She is on Rocephin, subcutaneous heparin, senna docusate, Tylenol, Zofran, milk of magnesia, senna, Dulcolax, lactulose. PHYSICAL EXAMINATION: VITAL SIGNS: On admission 154/77, most recent blood pressure 92/52 sitting, O2 sat 99% on room air and she is afebrile. However, has a slightly low temperature at 96.7, pulse is 69, respiratory rate is 18. HEART: Regular rate and rhythm. I do not detect a murmur, carotid bruit. ABDOMEN: Soft. NEUROLOGIC: Visual ott are mostly full. She does have some decreased vision to the periphery bilaterally. Although she does not report any vision trouble. Extraocular movements intact are intact without any nystagmus. Face symmetric. Tongue is midline. There is no drift. Strength in the upper and lower extremities is 5/5 bilaterally. Deep tendon reflexes are 2+ in the lower extremities, 1+ in the upper extremities. Toes were downgoing bilaterally. throughout. Pinprick sensation and vibratory sensation intact throughout. She is not ataxic on finger to nose or heel to chacon. She does walk very cautiously. She is very shaky. She states that she is a little nervous and has been since she had a few falls. She does take short steps and does shuffle a little bit. She is not aphasic but does have some difficulty getting her words out. She is alert and oriented at this time. She does have increased tone at times. She does not have classic cogwheel rigidity. She may have a little resting tremor as well. LABORATORY DATA: CBC is normal, sed rate is 1. She has small leukocyte esterase in the UA. Chemistry profile: Sodium was 125 on admission, is now 129. CPK was 545 on admission, is now 286. Troponin was negative. Albumin is low at 3.3. Thyroid is normal. Liver function tests are normal. CK MB is 8.9 on admission, now is 5.6. RPR is pending. IMAGING: MRI of the brain shows ventriculomegaly. No evidence for acute infarct, hemorrhage, mass, edema or enhancing lesions. Right frontal sinus opacification. Chest x-ray shows an 8 mm calcified granuloma in the lower lateral right lung. No infiltrates were seen. CT of the head shows prominence of the ventricles without cortical atrophy, parasinus disease. IMPRESSION: It is unclear exactly why she has had frequent falls and difficulty walking. It is possible that she does have normal pressure hydrocephalus especially with the ventriculomegaly on the MRI and CT scan. ____ versus normal pressure hydrocephaly versus Lewey body dementia. Her friend just came in and told us that she has been hallucinating for the last 3 years seeing snakes in the apartment which does not quite fit with the Parkinson's and also she, prior to December, had been working out 3 days a week, slowly stopped, however, the dramatic change in walking occurred about a month ago. What we will do is we will try her on some Sinemet first at 7, 11 and 2 and see if this improves her gait. Also keep a sleep chart. Will check some orthostatic blood pressures. The other possibility is that her sodium is significantly low, 125 on admission so this ____ concern as well. Will do some additional blood work and can consider treatment for NPH in the future if warranted. Dictated by YVETTE Seo MD DARLYN Hager/ , 02:40 PM , 11:08 PM
[2017-05-27] VITALS (8 sets, daily range): BP systolic 99–160; BP diastolic 65–85; PULSE 70–81; RESP 16–17; TEMP 95.8–98.1; O2SAT 99–100
[2017-05-27 06:54] LABS: AUTOMATED NEUTROPHIL # 1.9 TH/MM3 (1.8-7.7); BASOPHIL # 0.1 TH/MM3 (0-0.2); EOSINOPHIL # 0.2 TH/MM3 (0-0.4); EOSINOPHIL % 4.9 % (0.0-4.0); HEMATOCRIT 40.6 % (35.0-46.0); HEMOGLOBIN 13.9 GM/DL (11.6-15.3); LYMPHOCYTE # 1.9 TH/MM3 (1.0-4.8); MEAN CELL VOLUME 76.6 FL (80.0-100.0); MEAN CORPUSCULAR HEMOGLOBIN 26.2 PG (27.0-34.0); MEAN CORPUSCULAR HGB CONC 34.2 % (32.0-36.0); MEAN PLATELET VOLUME 6.2 FL (7.0-11.0); MONO % 14.7 % (0.0-8.0); MONOCYTE # 0.7 TH/MM3 (0-0.9); NEUT % 39.4 % (16.0-70.0); PLATELET COUNT 384 TH/MM3 (150-450); RED BLOOD COUNT 5.31 MIL/MM3 (4.00-5.30); RED CELL DISTRIBUTION WIDTH 13.9 % (11.6-17.2); WHITE BLOOD COUNT 4.7 TH/MM3 (4.0-11.0)
[2017-05-27 07:14] LABS: BICARBONATE 26.9 MEQ/L (21.0-32.0); CALCIUM 9.3 MG/DL (8.5-10.1); CREATININE 0.71 MG/DL (0.50-1.00); MAGNESIUM 2.4 MG/DL (1.5-2.5)
--- NOTE | 2017-05-27 07:19 | HHI.PR ---
Subjective Remarks some low bp standing into 75/ Objective Vital Signs Date Time Temp Pulse Resp B/P (MAP) Pulse Ox O2 Delivery O2 Flow Rate FiO2 05/27/17 04:04 70 05/27/17 03:55 98.1 71 17 160/85 (110) 99 05/27/17 00:53 97.2 70 17 141/81 (101) 100 05/26/17 23:57 72 05/26/17 21:24 Room Air 05/26/17 21:13 96.5 80 16 85/57 (66) 96 75/55 (62) 05/26/17 19:46 89 05/26/17 16:00 96.2 79 18 98/64 (75) 97 96/62 (73) 165/80 (108) 05/26/17 12:00 95.8 82 18 84/57 (66) 97 85/60 (68) 108/67 (81) 05/26/17 08:00 96.2 66 18 122/73 (89) 98 93/64 (74) 165/88 (113) I/O 05/26/17 05/26/17 05/26/17 05/27/17 05/27/17 05/27/17 07:00 15:00 23:00 07:00 15:00 23:00 Intake Total 100 ml 120 ml 1125 ml 120 ml Balance 100 ml 120 ml 1125 ml 120 ml Intake Oral 100 ml 120 ml 1025 ml 120 ml IV Total 100 ml # Voids 6 3 2 # Bowel Movements 1 2 0 Result Diagram: 05/27/17 0540 05/27/17 0540 Objective Remarks awake rue cogwheel mild this am some tremor with legs walks leaning back fair stride samir b4 am sinemet slept well oob Assessment and Plan Assessment and Plan imp labs ok x na 129 stand bp low not great change after few doses sinemet inc frequency sister coming into town may need csf drain for nph when she does oob PT i will dw them today check echo for low bp problem is fluid restricted but need higher standing bp 05/27/17 OH start midodrine if echo ok salt pills nusu for suspected nph oob/PT on sinemet inc dose Isaac Winston MD May 27, 2017 07:19
[2017-05-27] MEDS: CARBIDOPA/LEVODOPA 25 MG/100 MG TAB PO SCH ×4 (07:57→18:00)
--- NOTE | 2017-05-27 08:27 | HHI.PR ---
Subjective Remarks She was seen earlier by Neurology with the note appreciated. She appears comfortable and overall her disposition is about the same. She still appears to be with good tolerance of the current medication regimen. Objective - Vital Signs Date Time Temp Pulse Resp B/P (MAP) Pulse Ox O2 Delivery O2 Flow Rate FiO2 05/27/17 07:57 96.4 72 17 149/83 (105) 100 05/27/17 04:04 70 05/27/17 03:55 98.1 71 17 160/85 (110) 99 05/27/17 00:53 97.2 70 17 141/81 (101) 100 05/26/17 23:57 72 05/26/17 21:24 Room Air 05/26/17 21:13 96.5 80 16 85/57 (66) 96 75/55 (62) 05/26/17 19:46 89 05/26/17 16:00 96.2 79 18 98/64 (75) 97 96/62 (73) 165/80 (108) 05/26/17 12:00 95.8 82 18 84/57 (66) 97 85/60 (68) 108/67 (81) I/O 05/26/17 05/26/17 05/26/17 05/27/17 05/27/17 05/27/17 07:00 15:00 23:00 07:00 15:00 23:00 Intake Total 100 ml 120 ml 1125 ml 120 ml Balance 100 ml 120 ml 1125 ml 120 ml Intake Oral 100 ml 120 ml 1025 ml 120 ml IV Total 100 ml # Voids 6 3 2 # Bowel Movements 1 2 0 Result Diagram: 05/27/17 0540 05/27/17 0540 Objective Remarks GENERAL: She is alert and voices no new adverse complaints. SKIN: Warm and dry. HEAD: Normocephalic. EYES: No scleral icterus. No injection or drainage. NECK: Supple, trachea midline. No JVD or lymphadenopathy. CARDIOVASCULAR: Regular rate and rhythm without murmurs, gallops, or rubs. RESPIRATORY: Breath sounds equal bilaterally. No accessory muscle use. GASTROINTESTINAL: Abdomen soft, non-tender, nondistended. MUSCULOSKELETAL: No cyanosis, or edema. BACK: Nontender without obvious deformity. No CVA tenderness. EXTREMITIES: There is free range of motion. No edema to exam. NEUROLOGICAL: No lateralizing focal deficits. A/P Assessment and Plan ASSESSMENT 1. Hyponatremia-improving. 2. Orthostatic Hypotension. 3. Normal Pressure Hydrocephalus. 4. Pansinusitis. 5. Hypertension. 6. Hyperlipidemia. 7. Osteoporosis. 8. Depression. 9. Glaucoma. PLAN 1. Continue with the fluid restriction and may need salt tablets. 2. Encouraged good nutritional intake. 3. Neurology continues to follow. 4. Physical Therapy continues. 5. Continue with intravenous antibiotics. 6. Follow up laboratory assessment. 7. DVT and PE prophylaxis. Reuben Singh MD May 27, 2017 08:27
[2017-05-27] MEDS: DOCUSATE SODIUM 50 MG/SENNA 8.6 MG TAB PO SCH ×2 (08:53→22:00)
[2017-05-27] MEDS: HEPARIN SODIUM - SQ 10,000 UNITS/ML VIAL SQ SCH (08:54)
[2017-05-27] MEDS: SODIUM CHLORIDE 0.9% FLUSH 10 ML FLUSH IV FLUSH SCH ×2 (08:55→22:00)
[2017-05-27] MEDS: cefTRIAXone INJ 1,000 MG in SODIUM CHLORIDE 0.9% INJ 100 ML IV SCH (12:14)
[2017-05-27] MEDS ORDERED: SODIUM CHLOR 0.45% 1000 ML INJ 1,000 ML IV SCH (13:47)
--- NOTE | 2017-05-27 13:58 | PD.CONS ---
HPI Service Neurosurgery Consult Requested By Dr Brown Reason for Consult NPH Primary Care Physician Reuben Singh MD History of Present Illness This is a 72-year-old female with history of arterial hypertension, hypercholesterolemia, heart murmur, asthma. She noted for the last few weeks proressive trouble with her balance. She was a runner in college. Recently she had a lot of difficulty with that with her balance She has fallen about 3 times. She denies any urinary incontinence. She has history of headaches. She denies light-headedness, dizziness, chest pain or palpitations. She denies numbness or tingling or any change in her speech She notes that she has been having shaking in her hands and legs. CT and MRI show significant ventricolomegaly She was evaluated by a neurologist. neurosurgical consultation was requested Review of Systems Constitutional: DENIES: Diaphoretic episodes, Fatigue, Fever, Weight gain, Weight loss, Chills, Dizziness, Change in appetite, Night Sweats Endocrine: DENIES: Abnorml menstrual pattern, Heat/cold intolerance, Polydipsia , Polyuria, Polyphagia Eyes: DENIES: Blurred vision, Diplopia, Eye inflammation, Eye pain, Vision loss , Photosensitivity, Double Vision Ears, nose, mouth, throat: DENIES: Tinnitus, Hearing loss, Vertigo, Nasal discharge, Oral lesions, Throat pain, Hoarseness, Ear Pain, Running Nose, Epistaxis, Sinus Pain, Toothache, Odynophagia Respiratory: DENIES: Apneas, Cough, Snoring, Wheezing, Hemoptysis, Sputum production, Shortness of breath Cardiovascular: DENIES: Chest pain, Palpitations, Syncope, Dyspnea on Exertion , PND, Lower Extremity Edema, Orthopnea, Claudication Genitourinary: DENIES: Abnormal vaginal bleeding, Dysmenorrhea, Dyspareunia, Sexual dysfunction, Urinary frequency, Urinary incontinence, Urgency, Hematuria , Dysuria, Nocturia, Vaginal discharge Musculoskeletal: DENIES: Joint pain, Muscle aches, Stiffness, Joint Swelling, Back pain, Neck pain Integumentary: DENIES: Abnormal pigmentation, Pruritus, Rash, Nail changes, Breast masses, Breast skin changes, Nipple discharge Hematologic/lymphatic: DENIES: Bruising, Lymphadenopathy Immunologic/allergic: DENIES: Eczema, Urticaria Neurologic: COMPLAINS OF: Abnormal gait, Poor Balance, DENIES: Headache, Localized weakness, Paresthesias, Seizures, Speech Problems, Tremor Psychiatric: DENIES: Anxiety, Confusion, Mood changes, Depression, Hallucinations, Agitation, Suicidal Ideation, Homicidal Ideation, Delusions Past Family Social History Allergies: Coded Allergies: No Known Allergies (Unverified , 07/26/09) Reported Medications Inhaler, Fosamax, eyedrops, doxazosin, nasal spray, Flovent, lovastatin, sertraline, ampicillin given by her primary care. Active Ordered Medications Current Medications Sodium Chloride 1,000 ml @ 999 mls/hr BOLUS ONCE IV Last administered on at 21:57; Start 05/23/17 at 21:45; Stop 05/23/17 at 22:45; Status DC Sodium Chloride (NS Flush) 2 ml UNSCH PRN IV FLUSH FLUSH AFTER USING IV ACCESS Last administered on 05/27/17at 12:16; Start 05/23/17 at 22:45 Sodium Chloride (NS Flush) 2 ml BID IV FLUSH Last administered on 06/01/17at 07: 44; Start 05/24/17 at 09:00 Acetaminophen (Tylenol) 650 mg Q4H PRN PO TEMP > 100.4; Start 05/23/17 at 22:45 Ondansetron HCl (Zofran Inj) 4 mg Q6H PRN IVP NAUSEA OR VOMITING; Start at 22:45 Heparin Sodium (Porcine) (Heparin Inj) 5,000 units Q12H SQ Last administered on 05/27/17at 08:54; Start 05/24/17 at 09:00; Stop 05/27/17 at 13:45; Status DC Naloxone HCl (Narcan Inj) 0.4 mg UNSCH PRN IV PUSH SEE LABEL COMMENTS; Start at 22:45 Senna/Docusate Sodium (Liz-Colace) 1 tab BID PO Last administered on at 07:44; Start 05/24/17 at 09:00 Magnesium Hydroxide (Milk Of Magnesia Liq) 30 ml Q12H PRN PO Mild constipation Last administered on 05/25/17at 20:38; Start 05/23/17 at 22:45 Sennosides (Senokot) 17.2 mg Q12H PRN PO Moderate constipation; Start 05/23/17 at 22:45 Bisacodyl (Dulcolax Supp) 10 mg DAILY PRN RECTAL SEVERE CONSITIPATION; Start at 22:45 Lactulose (Lactulose Liq) 30 ml DAILY PRN PO SEVERE CONSITIPATION; Start at 22:45 Ceftriaxone Sodium 1000 mg/ Sodium Chloride 100 ml @ 200 mls/hr Q24H IV Last administered on 05/31/17at 11:09; Start 05/24/17 at 12:00; Stop 05/31/17 at 14:07 ; Status DC Gadodiamide (Omniscan Pf Inj) 10 ml STK-MED ONCE IVCONTRAST Last administered on 05/24/17at 11:34; Start 05/24/17 at 11:34; Stop 05/24/17 at 11:35; Status DC Carbidopa/Levodopa (Sinemet 25-100 Mg) 1 tab TID@0700,1100,1500 PO Last administered on 05/25/17at 06:12; Start 05/24/17 at 15:00; Stop 05/25/17 at 08:54 ; Status DC Carbidopa/Levodopa (Sinemet 25-100 Mg) 1 tab QID PO Last administered on at 20:26; Start 05/25/17 at 09:00; Stop 05/27/17 at 07:14; Status DC Carbidopa/Levodopa (Sinemet 25-100 Mg) 1 tab 0700,1100,1400,1800 PO Last administered on 06/01/17at 17:07; Start 05/27/17 at 07:15 Sodium Chloride (Sodium Chloride) 2 gm DAILY PO Last administered on 05/31/17at 09:20; Start 05/28/17 at 09:00; Stop 05/31/17 at 14:00; Status DC Sodium Chloride 1,000 ml @ 0 mls/hr Q0M IV ; Start 05/27/17 at 13:47; Stop at 14:03; Status DC Cefazolin Sodium/ Dextrose 50 ml @ 100 mls/hr BIT SHAVER IV Last administered on 05/28/17at 09:48; Start 05/27/17 at 14:00; Stop 05/31/17 at 13:59; Status DC Midodrine (Proamatine) 2.5 mg BID@0600,1200 PO Last administered on 06/01/17at 10:57; Start 05/28/17 at 06:00 Miscellaneous (Pill Splitter) 1 ea UNSCH PRN OTHER SEE LABEL COMMENTS; Start at 20:30 Fentanyl Citrate (fentaNYL INJ) 100 mcg STK-MED ONCE .ROUTE Last administered on 05/28/17at 09:33; Start 05/28/17 at 09:33; Stop 05/28/17 at 09:34; Status DC Midazolam HCl (Versed Inj) 2 mg STK-MED ONCE .ROUTE Last administered on at 09:33; Start 05/28/17 at 09:33; Stop 05/28/17 at 09:34; Status DC Chlorhexidine Gluconate (Hibiclens 4% Top Soln) 1 applic HS TOP Last administered on 05/31/17at 21:56; Start 05/30/17 at 21:00; Stop 06/01/17 at 21:01 Potassium Chloride (KCl) 40 meq ONCE PO Last administered on 05/31/17at 14:57; Start 05/31/17 at 14:00; Stop 05/31/17 at 14:01; Status DC Potassium Chloride (KCl) 40 meq ONCE ONCE PO Last administered on 05/31/17at 17 :50; Start 05/31/17 at 18:00; Stop 05/31/17 at 18:01; Status DC Amoxicillin/ Clavulanate Potassium (Augmentin) 500 mg BID PO Last administered on 06/01/17at 07:46; Start 05/31/17 at 17:00 Family History Her family history was reviewed. .She has 2 brothers and a sister with lung cancer, otherwise negative for seizure or stroke. Social History She lives by herself. She is a non-smoker. She does occasionally drink wine but not every day. She does not do drugs. Physical Exam Vital Signs Vital Signs Date Time Temp Pulse Resp B/P (MAP) Pulse Ox O2 Delivery O2 Flow Rate FiO2 05/27/17 12:00 95.8 81 17 110/77 (88) 100 05/27/17 07:57 96.4 72 17 149/83 (105) 100 05/27/17 04:04 70 05/27/17 03:55 98.1 71 17 160/85 (110) 99 05/27/17 00:53 97.2 70 17 141/81 (101) 100 05/26/17 23:57 72 05/26/17 21:24 Room Air 05/26/17 21:13 96.5 80 16 85/57 (66) 96 75/55 (62) 05/26/17 19:46 89 05/26/17 16:00 96.2 79 18 98/64 (75) 97 96/62 (73) 165/80 (108) Physical Exam The patient is alert, awake and oriented to time, place and person. Speech is fluent. Cranial nerve examination: pupils to be equal, round and reactive to light. Extra-ocular movements are intact. Facial motor and sensory function are normal and symmetrical. Gross hearing appears intact. Sternocleidomastoid and trapezius muscles are symmetrical. Other cranial nerves are intact. Neck is soft and supple with a good range of motion without pain. Muscle strength is normal in all muscle groups of both upper and lower extremities. Sensory examination is intact to light touch and pin prick in both the upper and lower extremities. Deep tendon reflexes are symmetrical in both upper and lower extremities. There is a bilateral plantar flexion response. Cerebellar examination is unremarkable, without deficits. HEART: Regular rate and rhythm. Lungs. Clear ABDOMEN: Soft. KIN Warm and dry Laboratory Laboratory Tests Test 05/27/17 05:40 White Blood Count 4.7 Red Blood Count 5.31 Hemoglobin 13.9 Hematocrit 40.6 Mean Corpuscular Volume 76.6 Mean Corpuscular Hemoglobin 26.2 Mean Corpuscular Hemoglobin Concent 34.2 Red Cell Distribution Width 13.9 Platelet Count 384 Mean Platelet Volume 6.2 Neutrophils (%) (Auto) 39.4 Lymphocytes (%) (Auto) 39.0 Monocytes (%) (Auto) 14.7 Eosinophils (%) (Auto) 4.9 Basophils (%) (Auto) 2.0 Neutrophils # (Auto) 1.9 Lymphocytes # (Auto) 1.9 Monocytes # (Auto) 0.7 Eosinophils # (Auto) 0.2 Basophils # (Auto) 0.1 CBC Comment DIFF FINAL Differential Comment Blood Urea Nitrogen 13 Creatinine 0.71 Random Glucose 94 Calcium Level 9.3 Magnesium Level 2.4 Sodium Level 135 Potassium Level 3.9 Chloride Level 100 Carbon Dioxide Level 26.9 Anion Gap 8 Estimat Glomerular Filtration Rate 98 Serum Osmolality 281 Result Diagram: 05/27/17 0540 05/27/1740 Attending Statement I reviewed her radiological studies. CT and MRI show significant ventricolomegaly. Using the patients radiological studies, we have discussed the physiopathology and clinical symptomatology of patients with normal pressure hydrocephalus. These patients usually present with a triad of gait imbalance, memory loss or mild dementia, and urinary incontinence. Without treatment, there is a slow tendency to progression, and in some patients the symptomatology could be improved by drainage of cerebrospinal fluid (CSF). In some cases of suspected normal pressure hydrocephalus, potential improvement with a permanent shunt can be tested by placement of a temporary lumbar drain and daily serial gait assessments. When the patients gait improves after CSF drainage, they may be a candidate for placement of a permanent ventriculoperitoneal shunt. Recommend lumbar drain trial neuro checks. Pulmonary.. Continue aggressive pulmonary toilette, nasotracheal suction, and breathing treatments with nebulizers. Nutrition. Oral diet PT assessment Renal. monitor closely urine output, BUN and creatinine Endocrine. Monitor serial Acu checks and SSI as needed in detail ID monitor for signs of infection Protonix for stress ulcer prophylaxis Ezequiel hosmau and SCD's for DVT prophylaxis Nba Mansfield MD May 27, 2017 13:58
[2017-05-27] MEDS ORDERED: ceFAZolin 2 GM PREMIX 50 ML IV SCH (14:00)
[2017-05-27 16:38] LABS: PROTHROMBIN TIME - PATIENT 10.5 SEC (9.8-11.6)
--- NOTE | 2017-05-27 18:19 | ECHRPT ---
Indication: HYPOTENSION CONCLUSIONS Normal left ventricular size. Mild concentric left ventricular hypertrophy. The left ventricular systolic function is normal with an estimated ejection fraction of 55%. The left atrial size is mildly dilated. The right atrial size is mildly dilated. No atrial level shunt is demonstrated by color flow Doppler interrogation. Trace mitral valve regurgitation. Aortic valve sclerosis is present. Mild aortic valve regurgitation. There is mild tricuspid valve regurgitation. The estimated pulmonary arterial pressure is 27 mmHg. BP: 165 / 88 HR: 66 Rhythm: Sinus MEASUREMENTS (Male / Female) Normal Values Technical Quality:Fair 2D ECHO LV Diastolic Diameter PLAX 3.4 cm 4.2 - 5.9 / 3.9 - 5.3 cm LV Systolic Diameter PLAX 2.4 cm IVS Diastolic Thickness 1.1 cm 0.6 - 1.0 / 0.6 - 0.9 cm LVPW Diastolic Thickness 1.0 cm 0.6 - 1.0 / 0.6 - 0.9 cm LV Relative Wall Thickness 0.6 RV Internal Dim ED PLAX 2.9 cm LVOT Diameter 2.0 cm LA Systolic Diameter LX 2.6 cm 3.0 - 4.0 / 2.7 - 3.8 cm M-MODE Aortic Root Diameter MM 2.8 cm LA Systolic Diameter MM 2.6 cm LA Ao Ratio MM 0.9 AV Cusp Separation MM 1.6 cm DOPPLER AV Peak Velocity 113.0 cm/s AV Peak Gradient 5.1 mmHg AI Peak Velocity 360.0 cm/s AI Peak Gradient 51.8 mmHg AI Pressure Half Time 663.0 ms LVOT Peak Velocity 87.4 cm/s LVOT Peak Gradient 3.1 mmHg AV Area Cont Eq pk 2.4 cm MV Area PHT 2.3 cm Mitral E Point Velocity 68.1 cm/s Mitral A Point Velocity 83.4 cm/s Mitral E to A Ratio 0.8 LV E' Lateral Velocity 9.3 cm/s Mitral E to LV E' Lateral Ratio 7.4 LV E' Septal Velocity 8.2 cm/s Mitral E to LV E' Septal Ratio 8.3 TR Peak Velocity 205.0 cm/s TR Peak Gradient 16.8 mmHg Right Atrial Pressure 10.0 mmHg Pulmonary Artery Systolic Pressu 26.8 mmHg Right Ventricular Systolic Press 26.8 mmHg FINDINGS LEFT VENTRICLE Normal left ventricular size. Mild concentric left ventricular hypertrophy. The left ventricular systolic function is normal with an estimated ejection fraction of 55%. RIGHT VENTRICLE Normal right ventricular size and systolic function. LEFT ATRIUM The left atrial size is mildly dilated. RIGHT ATRIUM The right atrial size is mildly dilated. ATRIAL SEPTUM No atrial level shunt is demonstrated by color flow Doppler interrogation. AORTA The aortic root and proximal ascending aorta are normal in size on limited imaging. MITRAL VALVE Trace mitral valve regurgitation. AORTIC VALVE Aortic valve sclerosis is present. Mild aortic valve regurgitation. TRICUSPID VALVE There is mild tricuspid valve regurgitation. The estimated pulmonary arterial pressure is 26.8 mmHg. PULMONARY VALVE No pulmonary valve regurgitation or stenosis. VESSELS The inferior vena cava is normal in size. PERICARDIUM No pericardial effusion. Nathalie You MD, FACC (Electronically Signed) Final Date:27 May 2017 18:18
[2017-05-27] MEDS ORDERED: PILL SPLITTER OTHER PRN (20:30)
[2017-05-28] VITALS (16 sets, daily range): BP systolic 130–174; BP diastolic 67–95; PULSE 65–84; RESP 16–18; TEMP 97–98.7; O2SAT 94–100
[2017-05-28] MEDS: MIDODRINE 5 MG TAB PO SCH ×2 (06:14→16:40)
[2017-05-28] MEDS: CARBIDOPA/LEVODOPA 25 MG/100 MG TAB PO SCH ×3 (06:20→16:57)
--- NOTE | 2017-05-28 07:33 | HHI.PR ---
Subjective Remarks some low bp standing into 75/ better last pm Objective Vital Signs Date Time Temp Pulse Resp B/P (MAP) Pulse Ox O2 Delivery O2 Flow Rate FiO2 05/28/17 04:00 98.7 84 16 153/67 (95) 94 05/28/17 00:00 98.1 70 16 150/82 (104) 100 134/74 (94) 130/69 (89) 05/27/17 20:00 98.1 77 16 152/83 (106) 100 05/27/17 16:00 97.7 80 17 99/65 (76) 99 05/27/17 16:00 80 05/27/17 12:00 95.8 81 17 110/77 (88) 100 05/27/17 08:00 72 05/27/17 08:00 100 Room Air 05/27/17 07:57 96.4 72 17 149/83 (105) 100 I/O 05/27/17 05/27/17 05/27/17 05/28/17 05/28/17 05/28/17 07:00 15:00 23:00 07:00 15:00 23:00 Intake Total 120 ml 480 ml 240 ml 100 ml Balance 120 ml 480 ml 240 ml 100 ml Intake Oral 120 ml 480 ml 240 ml 100 ml # Voids 2 2 1 2 # Bowel Movements 0 0 0 0 Result Diagram: 05/27/17 0540 05/27/17 0540 Objective Remarks awake some tremor with legs knows yr not month hospital not which one oob Assessment and Plan Assessment and Plan imp labs ok x na 129 stand bp low not great change after few doses sinemet inc frequency sister coming into town may need csf drain for nph when she does oob PT i will dw them today check echo for low bp problem is fluid restricted but need higher standing bp 05/27/17 OH start midodrine if echo ok salt pills nusu for suspected nph oob/PT on sinemet inc dose 05/28/17 echo neg bp low for lumbar drain will see if gait better and ms better after that check cortisol level na 135 on midodrine and nacl Isaac Winston MD May 28, 2017 07:33
[2017-05-28 08:40] LABS: METHYLMALONIC ACID 0.12 nmol/mL (<=0.40)
--- NOTE | 2017-05-28 08:53 | HHI.PR ---
Subjective Remarks She has been seen by Neurology and there are plans by Neurosurgery for cerebrospinal fluid drain to be done. She appears eager to have the procedure done to see if it will be of help to her. Objective - Vital Signs Date Time Temp Pulse Resp B/P (MAP) Pulse Ox O2 Delivery O2 Flow Rate FiO2 05/28/17 08:00 97.0 72 17 139/88 (105) 98 05/28/17 04:00 98.7 84 16 153/67 (95) 94 05/28/17 00:00 98.1 70 16 150/82 (104) 100 134/74 (94) 130/69 (89) 05/27/17 20:00 98.1 77 16 152/83 (106) 100 05/27/17 16:00 97.7 80 17 99/65 (76) 99 05/27/17 16:00 80 05/27/17 12:00 95.8 81 17 110/77 (88) 100 I/O 05/27/17 05/27/17 05/27/17 05/28/17 05/28/17 05/28/17 07:00 15:00 23:00 07:00 15:00 23:00 Intake Total 120 ml 480 ml 240 ml 100 ml Balance 120 ml 480 ml 240 ml 100 ml Intake Oral 120 ml 480 ml 240 ml 100 ml # Voids 2 2 1 2 # Bowel Movements 0 0 0 0 Result Diagram: 05/27/17 0540 05/27/17 0540 Objective Remarks GENERAL: SKIN: Warm and dry. HEAD: Normocephalic. EYES: No scleral icterus. No injection or drainage. NECK: Supple, trachea midline. No JVD or lymphadenopathy. CARDIOVASCULAR: Regular rate and rhythm without murmurs, gallops, or rubs. RESPIRATORY: Breath sounds equal bilaterally. No accessory muscle use. GASTROINTESTINAL: Abdomen soft, non-tender, nondistended. MUSCULOSKELETAL: No cyanosis, or edema. BACK: Nontender without obvious deformity. No CVA tenderness. A/P Assessment and Plan ASSESSMENT 1. Hyponatremia=some progress. 2. Orthostatic Hypotension. 3. Normal Pressure Hydrocephalus. 4. Pansinusitis. 5. Hypertension. 6. Hyperlipidemia. 7. Osteoporosis. 8. Depression. 9. Glaucoma. PLAN 1. Continue with the fluid restriction and salt tablets. 2. Neurology and Neurosurgery follow. 3. For cerebrospinal fluid drain. 4. Physical Therapy continues. 5. Consider converting intravenous antibiotics to oral. 6. Follow up laboratory assessment as needed. 7. DVT and PE prophylaxis. Reuben Singh MD May 28, 2017 08:53
[2017-05-28] MEDS: DOCUSATE SODIUM 50 MG/SENNA 8.6 MG TAB PO SCH ×2 (09:00→20:02)
[2017-05-28] MEDS: SODIUM CHLORIDE 0.9% FLUSH 10 ML FLUSH IV FLUSH SCH ×2 (09:00→20:02)
[2017-05-28] MEDS: SODIUM CHLORIDE 1 GRAM TAB PO SCH (09:00)
[2017-05-28] MEDS ORDERED: MIDAZOLAM HCL 2 MG/2 ML VIAL ONE (09:33)
--- NOTE | 2017-05-28 10:47 | HHI.NSPN ---
(Christina Rivas) Note Status Status: Progress Note (Christina Rivas) Interval History Interval History Ms. Rodriguez is a 72 year old female with suspected Normal Pressure Hydrocephalus. Neurosurgery consulted for evaluation. 05/28: going down for placement of lumbar drain, no changes neurologically (Christina Rivas) Labs, Micro, & Vital Signs Results Date Time Temp Pulse Resp B/P (MAP) Pulse Ox O2 Delivery O2 Flow Rate FiO2 05/28/17 08:00 97.0 72 17 139/88 (105) 98 05/28/17 04:00 98.7 84 16 153/67 (95) 94 05/28/17 00:00 98.1 70 16 150/82 (104) 100 134/74 (94) 130/69 (89) 05/27/17 20:00 98.1 77 16 152/83 (106) 100 05/27/17 16:00 97.7 80 17 99/65 (76) 99 05/27/17 16:00 80 05/27/17 12:00 95.8 81 17 110/77 (88) 100 Constitutional Vital Signs Date Time Temp Pulse Resp B/P (MAP) Pulse Ox O2 Delivery O2 Flow Rate FiO2 05/28/17 08:00 97.0 72 17 139/88 (105) 98 05/28/17 04:00 98.7 84 16 153/67 (95) 94 05/28/17 00:00 98.1 70 16 150/82 (104) 100 134/74 (94) 130/69 (89) 05/27/17 20:00 98.1 77 16 152/83 (106) 100 05/27/17 16:00 97.7 80 17 99/65 (76) 99 05/27/17 16:00 80 05/27/17 12:00 95.8 81 17 110/77 (88) 100 (Christina Rivas) Review of Systems Neurologic: COMPLAINS OF: Abnormal gait, Tremor, Poor Balance (Christina Rivas) Physical Exam The patient is alert, awake and oriented to time, place and person. Speech is fluent. Cranial nerve examination: pupils to be equal, round and reactive to light. Extra-ocular movements are intact. Facial motor and sensory function are normal and symmetrical. Gross hearing appears intact. Sternocleidomastoid and trapezius muscles are symmetrical. Other cranial nerves are intact. Neck is soft and supple with a good range of motion without pain. Muscle strength is normal in all muscle groups of both upper and lower extremities. Sensory examination is intact to light touch and pin prick in both the upper and lower extremities. Deep tendon reflexes are symmetrical in both upper and lower extremities. There is a bilateral plantar flexion response. Cerebellar examination is unremarkable, without deficits. HEART: Regular rate and rhythm. Lungs. Clear ABDOMEN: Soft. KIN Warm and dry (Nba Mansfield MD) Medications Current Medications Current Medications Medications (Trade) Dose Ordered Sig/Maggy Route PRN Reason Start Time Stop Time Status Last Admin Dose Admin Sodium Chloride (NS Flush) 2 ml UNSCH PRN IV FLUSH FLUSH AFTER USING IV ACCESS 05/23/17 22:45 05/27/17 12:16 Sodium Chloride (NS Flush) 2 ml BID IV FLUSH 05/24/17 09:00 05/27/17 22:00 Acetaminophen (Tylenol) 650 mg Q4H PRN PO TEMP > 100.4 05/23/17 22:45 Ondansetron HCl (Zofran Inj) 4 mg Q6H PRN IVP NAUSEA OR VOMITING 05/23/17 22:45 Naloxone HCl (Narcan Inj) 0.4 mg UNSCH PRN IV PUSH SEE LABEL COMMENTS 05/23/17 22:45 Senna/Docusate Sodium (Liz-Colace) 1 tab BID PO 05/24/17 09:00 05/27/17 22:00 Magnesium Hydroxide (Milk Of Magnesia Liq) 30 ml Q12H PRN PO Mild constipation 05/23/17 22:45 05/25/17 20:38 Sennosides (Senokot) 17.2 mg Q12H PRN PO Moderate constipation 05/23/17 22:45 Bisacodyl (Dulcolax Supp) 10 mg DAILY PRN RECTAL SEVERE CONSITIPATION 05/23/17 22:45 Lactulose (Lactulose Liq) 30 ml DAILY PRN PO SEVERE CONSITIPATION 05/23/17 22:45 Ceftriaxone Sodium 1000 mg/ Sodium Chloride 100 ml @ 200 mls/hr Q24H IV 05/24/17 12:00 05/27/17 12:14 Carbidopa/Levodopa (Sinemet 25-100 Mg) 1 tab 0700,1100,1400,1800 PO 05/27/17 07:15 05/28/17 06:20 Sodium Chloride (Sodium Chloride) 2 gm DAILY PO 05/28/17 09:00 Sodium Chloride 1,000 ml @ 0 mls/hr Q0M IV 05/27/17 13:47 Cefazolin Sodium/ Dextrose 50 ml @ 100 mls/hr SAFETY GROOVING MACHINE OPERATOR IV 05/27/17 14:00 05/31/17 13:59 05/28/17 09:48 Midodrine (Proamatine) 2.5 mg BID@0600,1200 PO 05/28/17 06:00 05/28/17 06:14 Miscellaneous (Pill Splitter) 1 ea UNSCH PRN OTHER SEE LABEL COMMENTS 05/27/17 20:30 (Christina Rivas) Medical Decision Making MDM Remarks 72 y/o female with suspected Normal Pressure Hydrocephalus (Christina Rivas) Plan Plan Remarks for placement of lumbar drain in IR, drain CSF per protocol PT, f/u gait evaluation and for improvement of NPH symptoms nonchemical dvt prophylaxis when drain in place (Christina Rivas) Attending Statement As above. If she shows improvement weith lumbar drain she will undergo a [employer]NER SCHEDULER shunt The exam, history, and the medical decision-making described in the above note were completed with the assistance of the mid-level provider. I reviewed and agree with the findings presented. I attest that I had a [id number] encounter with the patient on the same day, and personally performed and documented my assessment and findings in the medical record. (Nba Mansfield MD) Christina Rivas May 28, 2017 10:47 Nba Mansfield MD Jun 01, 2017 20:20
--- NOTE | 2017-05-28 11:42 | RADRPT ---
EXAM DATE/TIME: 05/28/2017 09:47 [facility] COMPARISON: No previous studies available for comparison. INDICATIONS : Patient in need of lumbar drain due to normal pressure hydrocephalus. MEDICAL HISTORY : HTN Hyperlipidemia Osteoporosis Seasonal allergies Asthma Chronic sinusitis Nasal polyps Glaucoma Depression SURGIAL HISTORY : Breast cyst removal X2 Right ovary removed Breast biopsy ENCOUNTER: Initial ACUITY: 4 - 6 days PAIN SCORE: 0/10 LOCATION: N/A LUMBAR PUNCTURE TIME: 1001 hours FLUORO TIME: 1.4 minutes IMAGE SERIES: 2 SEDATION TIME: 30 minutes LEVEL: Tip of lumbar drain was placed at T10 OPENING PRESSURE: 17.5 cm of water FLUID: 12 cc of clear CSF was collected and sent to the laboratory for analysis. MEDICATION(S): 1.) 1.5 mg midazolam (Versed) IV 2.) 100 mcg fentanyl (Sublimaze) IV DEVICE(S): 1.) 5 Khmer lumbar drain catheter PROCEDURE : 1. Fluoroscopically guided lumbar drain placement. 2. Conscious sedation with continuous EKG and oximetry monitoring. The risks, benefits and alternatives to the procedure were explained and verbal and written consent w as obtained. The site was prepped in sterile fashion. Full sterile technique was used, including ca p, mask, sterile gloves and gown and a large sterile sheet. Hand hygiene and 2% chlorhexidine and/or betadine/alcohol prep was utilized per protocol for cutaneous antisepsis. The skin and subcutaneous tissues were infiltrated with local anesthetic solution. With fluoroscopic guidance the lumbar thecal sac was punctured with a 14 gauge Touhy needle and a lum bar drain was placed with its tip at the level as described above and the catheter was sutured in shae ce. CSF was identified returning from the catheter at the termination of the procedure. Conscious sedation was performed with the prescribed dosages and duration as above in the presence of an independent trained radiology nurse to assist in the monitoring of the patient. EKG and oximetry remained stable throughout the procedure. The patient tolerated the procedure well and there were n o complications. The patient was sent to post anesthesia recovery in stable condition. CONCLUSION: Uncomplicated lumbar drain placement as above. José Luis Blake MD on May 28, 2017 at 11:39 Board Certified Radiologist. This report was verified electronically.
--- NOTE | 2017-05-28 11:45 | PD.RAD ---
Post Procedure Progress Note Pre Procedure Diagnosis: (1) Hydrocephalus Post Procedure Diagnosis: (1) Hydrocephalus Procedure Date: May 28, 2017 Supervising Radiologist: José Luis Blake Proceduralist/Assist: Vy Jorgensen, RT(R)(), Bogdan Schultz RT(R) Anesthesia: Local, Conscious Sedation Plan of Activity Patient to Unit: [facility] Patient Condition: Good See PACS Report for procedural detail/treatment José Luis Blake MD May 28, 2017 11:44
[2017-05-28] MEDS: cefTRIAXone INJ 1,000 MG in SODIUM CHLORIDE 0.9% INJ 100 ML IV SCH (12:00)
[2017-05-28 12:07] LABS: TOTAL PROTEIN,CSF 41.1 MG/DL (15.0-45.0)
[2017-05-28 12:50] LABS: SUPERNATE COLOR TUBE #1 CLEAR (CLEAR); WBC TUBE #4 0 /MM3 (0-10)
[2017-05-28 12:51] LABS: CSF LYMPHOCYTES 0 %; CSF NEUTROPHILS 0 %; RBC TUBE #4 8 /MM3
[2017-05-29 00:20] VITALS: BP 135/75; PULSE 60; RESP 17; TEMP 97.6; O2SAT 98
[2017-05-29 04:00] VITALS: BP 140/62; PULSE 66; RESP 18; TEMP 98; O2SAT 97
[2017-05-29] MEDS: MIDODRINE 5 MG TAB PO SCH ×2 (07:00→10:57)
--- NOTE | 2017-05-29 07:42 | HHI.PR ---
Subjective Remarks some low bp standing into 75/ better yest am none since Objective Vital Signs Date Time Temp Pulse Resp B/P (MAP) Pulse Ox O2 Delivery O2 Flow Rate FiO2 05/29/17 04:00 98.0 66 18 140/62 (88) 97 05/29/17 00:20 97.6 60 17 135/75 (95) 98 05/28/17 21:30 98.4 78 17 149/72 (97) 97 05/28/17 20:09 97 Room Air 05/28/17 17:32 98.6 74 18 170/85 (113) 96 05/28/17 16:40 68 18 145/85 (105) 98 05/28/17 16:25 68 18 151/86 (107) 99 05/28/17 15:25 65 18 148/86 (106) 98 05/28/17 14:25 66 18 142/86 (104) 98 05/28/17 13:25 65 18 174/92 (119) 98 05/28/17 12:25 70 18 151/95 (113) 97 05/28/17 11:55 70 18 97 05/28/17 11:25 70 18 97 05/28/17 10:54 66 18 95 05/28/17 10:40 70 18 94 05/28/17 10:25 98.2 70 18 95 05/28/17 08:00 97.0 72 17 139/88 (105) 98 I/O 05/28/17 05/28/17 05/28/17 05/29/17 05/29/17 05/29/17 07:00 15:00 23:00 07:00 15:00 23:00 Intake Total 100 ml 300 ml 400 ml Output Total 110 ml 60 ml 10 ml Balance 100 ml 190 ml 340 ml -10 ml Intake Oral 100 ml 300 ml 400 ml Output Drainage Total 110 ml 60 ml 10 ml # Voids 2 1 4 # Bowel Movements 0 0 0 Result Diagram: 05/27/1740 05/27/1740 Objective Remarks awake some tremor with legs on sitting knows yr and month hospital oob she walks with smaller steps but not retropulsing this am drain in Assessment and Plan Assessment and Plan imp labs ok x na 129 stand bp low not great change after few doses sinemet inc frequency sister coming into town may need csf drain for nph when she does oob PT i will dw them today check echo for low bp problem is fluid restricted but need higher standing bp 05/27/17 OH start midodrine if echo ok salt pills nusu for suspected nph oob/PT on sinemet inc dose 05/28/17 echo neg bp low for lumbar drain will see if gait better and ms better after that check cortisol level na 135 on midodrine and nacl 05/29/17 looks a little better on drain will see how does follow standing bps on sinemet and midodrine Isaac Winston MD May 29, 2017 07:42
[2017-05-29] MEDS: SODIUM CHLORIDE 1 GRAM TAB PO SCH (08:21)
[2017-05-29] MEDS: DOCUSATE SODIUM 50 MG/SENNA 8.6 MG TAB PO SCH ×2 (08:21→21:00)
[2017-05-29] MEDS: SODIUM CHLORIDE 0.9% FLUSH 10 ML FLUSH IV FLUSH SCH ×2 (08:21→21:00)
[2017-05-29 08:28] VITALS: BP_SYST 113; BP_SYST 132; BP_SYST 156; BP_DIAS 74; BP_DIAS 81; BP_DIAS 82; PULSE 73; RESP 18; TEMP 98; O2SAT 99
[2017-05-29] MEDS: CARBIDOPA/LEVODOPA 25 MG/100 MG TAB PO SCH ×3 (10:57→17:48)
[2017-05-29] MEDS: cefTRIAXone INJ 1,000 MG in SODIUM CHLORIDE 0.9% INJ 100 ML IV SCH (11:01)
[2017-05-29 12:17] VITALS: BP_SYST 108; BP_SYST 139; BP_SYST 142; BP_DIAS 70; BP_DIAS 75; BP_DIAS 78; PULSE 71; RESP 18; TEMP 98.2; O2SAT 99
--- NOTE | 2017-05-29 13:19 | HHI.PR ---
Subjective Remarks She is having cerebrospinal fluid drain. She was seen by Neurology with the note appreciated. She appears more articulate and is with the feeling that she is feeling some better since starting the drain. She is also tolerating the other medications well. Objective - Vital Signs Date Time Temp Pulse Resp B/P (MAP) Pulse Ox O2 Delivery O2 Flow Rate FiO2 05/29/17 12:17 98.2 71 18 142/75 (97) 99 139/78 (98) 108/70 (83) 05/29/17 11:44 Room Air 05/29/17 08:28 98.0 73 18 156/81 (106) 99 132/82 (99) 113/74 (87) 05/29/17 04:00 98.0 66 18 140/62 (88) 97 05/29/17 00:20 97.6 60 17 135/75 (95) 98 05/28/17 21:30 98.4 78 17 149/72 (97) 97 05/28/17 20:09 97 Room Air 05/28/17 17:32 98.6 74 18 170/85 (113) 96 05/28/17 16:40 68 18 145/85 (105) 98 05/28/17 16:25 68 18 151/86 (107) 99 05/28/17 15:25 65 18 148/86 (106) 98 05/28/17 14:25 66 18 142/86 (104) 98 05/28/17 13:25 65 18 174/92 (119) 98 I/O 05/28/17 05/28/17 05/28/17 05/29/17 05/29/17 05/29/17 07:00 15:00 23:00 07:00 15:00 23:00 Intake Total 100 ml 300 ml 400 ml 100 ml Output Total 110 ml 60 ml 10 ml Balance 100 ml 190 ml 340 ml 90 ml Intake Oral 100 ml 300 ml 400 ml IV Total 100 ml Output Drainage Total 110 ml 60 ml 10 ml # Voids 2 1 4 # Bowel Movements 0 0 0 Result Diagram: 05/27/17 0540 05/27/17 0540 Objective Remarks GENERAL: Alert and appears much brighter today. SKIN: Warm and dry. HEAD: Normocephalic to exam. EYES: No scleral icterus. No injection or drainage. NECK: Supple, trachea midline. No JVD or lymphadenopathy. CARDIOVASCULAR: Regular rate and rhythm without murmurs, gallops, or rubs. RESPIRATORY: Breath sounds equal bilaterally. No accessory muscle use. GASTROINTESTINAL: Abdomen soft, non-tender, nondistended. MUSCULOSKELETAL: No cyanosis, or edema. BACK: Nontender without obvious deformity. No CVA tenderness. NEUROLOGICAL: No new adverse changes. A/P Assessment and Plan ASSESSMENT 1. Hyponatremia. 2. Orthostatic Hypotension. 3. Normal Pressure Hydrocephalus. 4. Pansinusitis. 5. Hypertension. 6. Hyperlipidemia. 7. Osteoporosis. 8. Depression. 9. Glaucoma. PLAN 1. Continue with the fluid restriction, Midodrine and salt tablets. 2. Follow closely her response to the cerebrospinal fluid drain. 3. Neurology and Neurosurgery follow. 4. Physical Therapy continues. 5. Convert to oral antibiotics. 6. Follow up laboratory assessment. 7. DVT and PE prophylaxis. Reuben Singh MD May 29, 2017 13:19
--- NOTE | 2017-05-29 15:05 | HHI.NSPN ---
(Christina Rivas) Note Status Status: Progress Note (Christina Rivas) Interval History Interval History Ms. Rodriguez is a 72 year old female with suspected Normal Pressure Hydrocephalus. Neurosurgery consulted for evaluation. 05/28: going down for placement of lumbar drain, no changes neurologically 05/29: patient reports possibly some improvement in her gait this morning. currently being drained. (Christina Rivas) Labs, Micro, & Vital Signs Results Date Time Temp Pulse Resp B/P (MAP) Pulse Ox O2 Delivery O2 Flow Rate FiO2 05/29/17 12:17 98.2 71 18 142/75 (97) 99 139/78 (98) 108/70 (83) 05/29/17 11:44 Room Air 05/29/17 08:28 98.0 73 18 156/81 (106) 99 132/82 (99) 113/74 (87) 05/29/17 04:00 98.0 66 18 140/62 (88) 97 05/29/17 00:20 97.6 60 17 135/75 (95) 98 05/28/17 21:30 98.4 78 17 149/72 (97) 97 05/28/17 20:09 97 Room Air 05/28/17 17:32 98.6 74 18 170/85 (113) 96 05/28/17 16:40 68 18 145/85 (105) 98 05/28/17 16:25 68 18 151/86 (107) 99 05/28/17 15:25 65 18 148/86 (106) 98 05/30/17 07:00 Intake Total 100 ml Output Total 10 ml Balance 90 ml Constitutional Vital Signs Date Time Temp Pulse Resp B/P (MAP) Pulse Ox O2 Delivery O2 Flow Rate FiO2 05/29/17 12:17 98.2 71 18 142/75 (97) 99 139/78 (98) 108/70 (83) 05/29/17 11:44 Room Air 05/29/17 08:28 98.0 73 18 156/81 (106) 99 132/82 (99) 113/74 (87) 05/29/17 04:00 98.0 66 18 140/62 (88) 97 05/29/17 00:20 97.6 60 17 135/75 (95) 98 05/28/17 21:30 98.4 78 17 149/72 (97) 97 05/28/17 20:09 97 Room Air 05/28/17 17:32 98.6 74 18 170/85 (113) 96 05/28/17 16:40 68 18 145/85 (105) 98 05/28/17 16:25 68 18 151/86 (107) 99 05/28/17 15:25 65 18 148/86 (106) 98 05/30/17 07:00 Intake Total 100 ml Output Total 10 ml Balance 90 ml (Christina Rivas) Physical Exam GEN: no apparent distress, laying flat in bed Neuro: alert, conversing. CN: pupils equal, facial motor symmetric, follows commands. Motor:moves all four extremities Heart: regular rate, rhythm Resp: clear, nonlabored breathing HEENT: normocephalic, nonicteric sclera (Christina Rivas) She is comfortable, no apparent distress, laying flat in bed Neuro: alert, conversing. CN: pupils equal, facial motor symmetric, follows commands. Motor:moves all four extremities Cerebellar exam normal Heart: regular rate, rhythm Resp: clear, nonlabored breathing HEENT: normocephalic, nonicteric sclera Skin warm and dry (Nba Mansfield MD) Medications Current Medications Current Medications Medications (Trade) Dose Ordered Sig/Maggy Route PRN Reason Start Time Stop Time Status Last Admin Dose Admin Sodium Chloride (NS Flush) 2 ml UNSCH PRN IV FLUSH FLUSH AFTER USING IV ACCESS 05/23/17 22:45 05/27/17 12:16 Sodium Chloride (NS Flush) 2 ml BID IV FLUSH 05/24/17 09:00 05/29/17 08:21 Acetaminophen (Tylenol) 650 mg Q4H PRN PO TEMP > 100.4 05/23/17 22:45 Ondansetron HCl (Zofran Inj) 4 mg Q6H PRN IVP NAUSEA OR VOMITING 05/23/17 22:45 Naloxone HCl (Narcan Inj) 0.4 mg UNSCH PRN IV PUSH SEE LABEL COMMENTS 05/23/17 22:45 Senna/Docusate Sodium (Liz-Colace) 1 tab BID PO 05/24/17 09:00 05/29/17 08:21 Magnesium Hydroxide (Milk Of Magnesia Liq) 30 ml Q12H PRN PO Mild constipation 05/23/17 22:45 05/25/17 20:38 Sennosides (Senokot) 17.2 mg Q12H PRN PO Moderate constipation 05/23/17 22:45 Bisacodyl (Dulcolax Supp) 10 mg DAILY PRN RECTAL SEVERE CONSITIPATION 05/23/17 22:45 Lactulose (Lactulose Liq) 30 ml DAILY PRN PO SEVERE CONSITIPATION 05/23/17 22:45 Ceftriaxone Sodium 1000 mg/ Sodium Chloride 100 ml @ 200 mls/hr Q24H IV 05/24/17 12:00 05/29/17 11:01 Carbidopa/Levodopa (Sinemet 25-100 Mg) 1 tab 0700,1100,1400,1800 PO 05/27/17 07:15 05/29/17 13:42 Sodium Chloride (Sodium Chloride) 2 gm DAILY PO 05/28/17 09:00 05/29/17 08:21 Sodium Chloride 1,000 ml @ 0 mls/hr Q0M IV 05/27/17 13:47 Cefazolin Sodium/ Dextrose 50 ml @ 100 mls/hr DIP TANKER IV 05/27/17 14:00 05/31/17 13:59 05/28/17 09:48 Midodrine (Proamatine) 2.5 mg BID@0600,1200 PO 05/28/17 06:00 05/29/17 10:57 Miscellaneous (Pill Splitter) 1 ea UNSCH PRN OTHER SEE LABEL COMMENTS 05/27/17 20:30 (Christina Rivas) Current Medications Current Medications Sodium Chloride 1,000 ml @ 999 mls/hr BOLUS ONCE IV Last administered on at 21:57; Start 05/23/17 at 21:45; Stop 05/23/17 at 22:45; Status DC Sodium Chloride (NS Flush) 2 ml UNSCH PRN IV FLUSH FLUSH AFTER USING IV ACCESS Last administered on 05/27/17at 12:16; Start 05/23/17 at 22:45 Sodium Chloride (NS Flush) 2 ml BID IV FLUSH Last administered on 06/02/17at 09: 52; Start 05/24/17 at 09:00 Acetaminophen (Tylenol) 650 mg Q4H PRN PO TEMP > 100.4; Start 05/23/17 at 22:45 Ondansetron HCl (Zofran Inj) 4 mg Q6H PRN IVP NAUSEA OR VOMITING; Start at 22:45 Heparin Sodium (Porcine) (Heparin Inj) 5,000 units Q12H SQ Last administered on 05/27/17at 08:54; Start 05/24/17 at 09:00; Stop 05/27/17 at 13:45; Status DC Naloxone HCl (Narcan Inj) 0.4 mg UNSCH PRN IV PUSH SEE LABEL COMMENTS; Start at 22:45 Senna/Docusate Sodium (Liz-Colace) 1 tab BID PO Last administered on at 09:52; Start 05/24/17 at 09:00 Magnesium Hydroxide (Milk Of Magnesia Liq) 30 ml Q12H PRN PO Mild constipation Last administered on 05/25/17at 20:38; Start 05/23/17 at 22:45 Sennosides (Senokot) 17.2 mg Q12H PRN PO Moderate constipation; Start 05/23/17 at 22:45 Bisacodyl (Dulcolax Supp) 10 mg DAILY PRN RECTAL SEVERE CONSITIPATION; Start at 22:45 Lactulose (Lactulose Liq) 30 ml DAILY PRN PO SEVERE CONSITIPATION; Start at 22:45 Ceftriaxone Sodium 1000 mg/ Sodium Chloride 100 ml @ 200 mls/hr Q24H IV Last administered on 05/31/17at 11:09; Start 05/24/17 at 12:00; Stop 05/31/17 at 14:07 ; Status DC Gadodiamide (Omniscan Pf Inj) 10 ml STK-MED ONCE IVCONTRAST Last administered on 05/24/17at 11:34; Start 05/24/17 at 11:34; Stop 05/24/17 at 11:35; Status DC Carbidopa/Levodopa (Sinemet 25-100 Mg) 1 tab TID@0700,1100,1500 PO Last administered on 05/25/17at 06:12; Start 05/24/17 at 15:00; Stop 05/25/17 at 08:54 ; Status DC Carbidopa/Levodopa (Sinemet 25-100 Mg) 1 tab QID PO Last administered on at 20:26; Start 05/25/17 at 09:00; Stop 05/27/17 at 07:14; Status DC Carbidopa/Levodopa (Sinemet 25-100 Mg) 1 tab 0700,1100,1400,1800 PO Last administered on 06/02/17at 09:51; Start 05/27/17 at 07:15 Sodium Chloride (Sodium Chloride) 2 gm DAILY PO Last administered on 05/31/17at 09:20; Start 05/28/17 at 09:00; Stop 05/31/17 at 14:00; Status DC Sodium Chloride 1,000 ml @ 0 mls/hr Q0M IV ; Start 05/27/17 at 13:47; Stop at 14:03; Status DC Cefazolin Sodium/ Dextrose 50 ml @ 100 mls/hr DIP TANKER IV Last administered on 05/28/17at 09:48; Start 05/27/17 at 14:00; Stop 05/31/17 at 13:59; Status DC Midodrine (Proamatine) 2.5 mg BID@0600,1200 PO Last administered on 06/02/17at 06:04; Start 05/28/17 at 06:00 Miscellaneous (Pill Splitter) 1 ea UNSCH PRN OTHER SEE LABEL COMMENTS; Start at 20:30 Fentanyl Citrate (fentaNYL INJ) 100 mcg STK-MED ONCE .ROUTE Last administered on 05/28/17at 09:33; Start 05/28/17 at 09:33; Stop 05/28/17 at 09:34; Status DC Midazolam HCl (Versed Inj) 2 mg STK-MED ONCE .ROUTE Last administered on at 09:33; Start 05/28/17 at 09:33; Stop 05/28/17 at 09:34; Status DC Chlorhexidine Gluconate (Hibiclens 4% Top Soln) 1 applic HS TOP Last administered on 06/01/17at 20:56; Start 05/30/17 at 21:00; Stop 06/01/17 at 21:01 ; Status DC Potassium Chloride (KCl) 40 meq ONCE PO Last administered on 05/31/17at 14:57; Start 05/31/17 at 14:00; Stop 05/31/17 at 14:01; Status DC Potassium Chloride (KCl) 40 meq ONCE ONCE PO Last administered on 05/31/17at 17 :50; Start 05/31/17 at 18:00; Stop 05/31/17 at 18:01; Status DC Amoxicillin/ Clavulanate Potassium (Augmentin) 500 mg BID PO Last administered on 06/02/17at 09:52; Start 05/31/17 at 17:00 Lactated Ringer's 1,000 ml @ 30 mls/hr Q24H PRN IV SEE LABEL COMMENTS; Start at 21:30; Stop 06/04/17 at 21:29 Sodium Chloride 500 ml @ 30 mls/hr [id number] PRN IV SEE LABEL COMMENTS; Start at 21:30; Stop 06/04/17 at 21:29 Metoprolol Tartrate (Lopressor) 25 mg DIP TANKER PRN PO SEE LABEL COMMENTS; Start 06/01/17 at 21:30; Stop 06/04/17 at 21:29 Povidone Iodine (Betadine 5% Antisepsis Kit) 1 applic DIP TANKER PRN EACH NARE SEE LABEL COMMENTS; Start 06/01/17 at 21:30; Stop 06/04/17 at 21:29 Chlorhexidine Gluconate (Chlorhexidine 2% Cloth) 3 pack DIP TANKER PRN TOPICAL SEE LABEL COMMENTS; Start 06/01/17 at 21:30; Stop 06/04/17 at 21:29 (Nba Mansfield MD) Medical Decision Making MDM Remarks 72 y/o female with suspected Normal Pressure Hydrocephalus, s/p placement of lumbar drain 05/28/17 (Christina Rivas) Plan Plan Remarks will cont draining CSF per protocol f/u gait evaluation and for improvement of NPH symptoms nonchemical dvt prophylaxis when drain in place will reassess tomorrow (Christina Rivas) Attending Statement As above She is improving Good candidate for MU[employer] shunt The exam, history, and the medical decision-making described in the above note were completed with the assistance of the mid-level provider. I reviewed and agree with the findings presented. I attest that I had a [id number] encounter with the patient on the same day, and personally performed and documented my assessment and findings in the medical record. (Nba Mansfield MD) Christina Rivas May 29, 2017 15:04 Nba Mansfield MD Jun 02, 2017 10:46
[2017-05-29 16:00] VITALS: BP_SYST 118; BP_SYST 137; BP_SYST 99; BP_DIAS 61; BP_DIAS 67; BP_DIAS 72; PULSE 71; RESP 18; TEMP 98.5; O2SAT 99
[2017-05-29 21:07] VITALS: BP_SYST 151; BP_SYST 155; BP_DIAS 75; BP_DIAS 86; PULSE 74; RESP 17; TEMP 98.5; O2SAT 100
[2017-05-30 00:20] VITALS: BP_SYST 142; BP_SYST 145; BP_DIAS 77; BP_DIAS 82; PULSE 74; RESP 17; TEMP 98.6; O2SAT 99
[2017-05-30 05:43] VITALS: BP 150/83; PULSE 72; RESP 17; TEMP 98.9; O2SAT 100
[2017-05-30] MEDS: MIDODRINE 5 MG TAB PO SCH ×3 (06:00→11:58)
[2017-05-30] MEDS: CARBIDOPA/LEVODOPA 25 MG/100 MG TAB PO SCH ×5 (06:46→18:00)
[2017-05-30 07:45] LABS: AUTOMATED NEUTROPHIL # 3.3 TH/MM3 (1.8-7.7); BASOPHIL # 0.1 TH/MM3 (0-0.2); BASOPHIL % 1.2 % (0.0-2.0); EOSINOPHIL # 0.2 TH/MM3 (0-0.4); EOSINOPHIL % 3.4 % (0.0-4.0); HEMATOCRIT 42.8 % (35.0-46.0); HEMOGLOBIN 14.1 GM/DL (11.6-15.3); LYMPH % 22.9 % (9.0-44.0); LYMPHOCYTE # 1.3 TH/MM3 (1.0-4.8); MEAN CELL VOLUME 76.6 FL (80.0-100.0); MEAN CORPUSCULAR HEMOGLOBIN 25.3 PG (27.0-34.0); MEAN CORPUSCULAR HGB CONC 33.1 % (32.0-36.0); MEAN PLATELET VOLUME 6.4 FL (7.0-11.0); MONO % 12.4 % (0.0-8.0); MONOCYTE # 0.7 TH/MM3 (0-0.9); NEUT % 60.1 % (16.0-70.0); PLATELET COUNT 306 TH/MM3 (150-450); RED BLOOD COUNT 5.58 MIL/MM3 (4.00-5.30); RED CELL DISTRIBUTION WIDTH 13.7 % (11.6-17.2); WHITE BLOOD COUNT 5.5 TH/MM3 (4.0-11.0)
[2017-05-30 08:13] LABS: BICARBONATE 27.3 MEQ/L (21.0-32.0); CALCIUM 9.4 MG/DL (8.5-10.1); CREATININE 0.65 MG/DL (0.50-1.00); MAGNESIUM 2.3 MG/DL (1.5-2.5)
--- NOTE | 2017-05-30 08:31 | HHI.PR ---
Subjective Remarks some low bp standing i110/ Objective Vital Signs Date Time Temp Pulse Resp B/P (MAP) Pulse Ox O2 Delivery O2 Flow Rate FiO2 05/30/17 05:43 98.9 72 17 150/83 (105) 100 05/30/17 00:20 98.6 74 17 142/82 (102) 99 145/77 (99) 05/29/17 21:07 98.5 74 17 155/86 (109) 100 151/75 (100) 05/29/17 16:00 98.5 71 18 137/72 (93) 99 118/67 (84) 99/61 (74) 05/29/17 12:17 98.2 71 18 142/75 (97) 99 139/78 (98) 108/70 (83) 05/29/17 11:44 Room Air I/O 05/29/17 05/29/17 05/29/17 05/30/17 05/30/17 05/30/17 07:00 15:00 23:00 07:00 15:00 23:00 Intake Total 400 ml 580 ml 480 ml Output Total 60 ml 10 ml Balance 340 ml 570 ml 480 ml Intake Oral 400 ml 480 ml 480 ml IV Total 100 ml Output Drainage Total 60 ml 10 ml # Voids 4 3 6 # Bowel Movements 0 Result Diagram: 05/30/1761705/30/17617 Objective Remarks awake no tremor with legs on sitting knows [facility] [place] says out of country? hospital oob she walks with smaller slow steps but not retropulsing this am drain in can walk backwards some i think overall a little better with drain not a major amount considering her disablitly however it may be beneficial to go forward with the shunt will defer to [facility] opinion on their gait eval today keep midodrine and sinemet will fu friday Assessment and Plan Assessment and Plan imp labs ok x na 129 stand bp low not great change after few doses sinemet inc frequency sister coming into town may need csf drain for nph when she does oob PT i will dw them today check echo for low bp problem is fluid restricted but need higher standing bp 05/27/17 OH start midodrine if echo ok salt pills nusu for suspected nph oob/PT on sinemet inc dose 05/28/17 echo neg bp low for lumbar drain will see if gait better and ms better after that check cortisol level na 135 on midodrine and nacl 05/29/17 looks a little better on drain will see how does follow standing bps on sinemet and midodrine Isaac Winston MD May 30, 2017 08:31
[2017-05-30 08:57] VITALS: BP_SYST 158; BP_SYST 161; BP_SYST 162; BP_DIAS 75; BP_DIAS 76; BP_DIAS 78; PULSE 73; RESP 17; TEMP 97.6; O2SAT 98
[2017-05-30] MEDS: DOCUSATE SODIUM 50 MG/SENNA 8.6 MG TAB PO SCH ×2 (09:10→21:03)
[2017-05-30] MEDS: SODIUM CHLORIDE 0.9% FLUSH 10 ML FLUSH IV FLUSH SCH ×2 (09:10→21:03)
[2017-05-30] MEDS: SODIUM CHLORIDE 1 GRAM TAB PO SCH (09:23)
[2017-05-30] MEDS: cefTRIAXone INJ 1,000 MG in SODIUM CHLORIDE 0.9% INJ 100 ML IV SCH (11:59)
[2017-05-30 12:00] VITALS: BP_SYST 149; BP_SYST 159; BP_DIAS 81; BP_DIAS 84; PULSE 73; RESP 18; TEMP 97.9; O2SAT 98
--- NOTE | 2017-05-30 12:37 | HHI.NSPN ---
(Christina Rivas) Note Status Status: Progress Note (Christina Rivas) Interval History Interval History Ms. Rodriguez is a 72 year old female with suspected Normal Pressure Hydrocephalus. Neurosurgery consulted for evaluation. 05/28: going down for placement of lumbar drain, no changes neurologically 05/29: patient reports possibly some improvement in her gait this morning. currently being drained. 05/30: continues with lumbar draining. ambulated with physical therapy which I was present for. patient herself reports she has seen overall an improvement in her gait, she says "much better". (Christina Rivas) Labs, Micro, & Vital Signs Results Date Time Temp Pulse Resp B/P (MAP) Pulse Ox O2 Delivery O2 Flow Rate FiO2 05/30/17 09:26 Room Air 05/30/17 08:57 97.6 73 17 161/76 (104) 98 158/75 (102) 162/78 (106) 05/30/17 05:43 98.9 72 17 150/83 (105) 100 05/30/17 00:20 98.6 74 17 142/82 (102) 99 145/77 (99) 05/29/17 21:07 98.5 74 17 155/86 (109) 100 151/75 (100) 05/29/17 16:00 98.5 71 18 137/72 (93) 99 118/67 (84) 99/61 (74) 05/31/17 07:00 Output Total 10 ml Balance -10 ml Constitutional Vital Signs Date Time Temp Pulse Resp B/P (MAP) Pulse Ox O2 Delivery O2 Flow Rate FiO2 05/30/17 09:26 Room Air 05/30/17 08:57 97.6 73 17 161/76 (104) 98 158/75 (102) 162/78 (106) 05/30/17 05:43 98.9 72 17 150/83 (105) 100 05/30/17 00:20 98.6 74 17 142/82 (102) 99 145/77 (99) 05/29/17 21:07 98.5 74 17 155/86 (109) 100 151/75 (100) 05/29/17 16:00 98.5 71 18 137/72 (93) 99 118/67 (84) 99/61 (74) 05/31/17 07:00 Output Total 10 ml Balance -10 ml (Christina Rivas) Review of Systems Constitutional: DENIES: Fever Cardiovascular: DENIES: Chest pain Neurologic: COMPLAINS OF: Abnormal gait, Tremor, Poor Balance, DENIES: Headache (Christina Rivas) Physical Exam GEN: no apparent distress, laying flat in bed Neuro: alert, conversing. CN: pupils equal, facial motor symmetric, follows commands. lumbar drain secured, CSF in reservoir clear Motor:moves all four extremities Heart: regular rate, rhythm Resp: clear, nonlabored breathing HEENT: normocephalic, nonicteric sclera (Christina Rivas) GEN: no apparent distress, laying flat in bed Neuro: alert, conversing. CN: pupils equal, facial motor symmetric, follows commands. lumbar drain secured, CSF in reservoir clear Motor:moves all four extremities Heart: regular rate, rhythm Resp: clear, nonlabored breathing HEENT: normocephalic, nonicteric sclera Skin. arm and dry (Nba Mansfield MD) Medications Current Medications Current Medications Medications (Trade) Dose Ordered Sig/Maggy Route PRN Reason Start Time Stop Time Status Last Admin Dose Admin Sodium Chloride (NS Flush) 2 ml UNSCH PRN IV FLUSH FLUSH AFTER USING IV ACCESS 05/23/17 22:45 05/27/17 12:16 Sodium Chloride (NS Flush) 2 ml BID IV FLUSH 05/24/17 09:00 05/30/17 09:10 Acetaminophen (Tylenol) 650 mg Q4H PRN PO TEMP > 100.4 05/23/17 22:45 Ondansetron HCl (Zofran Inj) 4 mg Q6H PRN IVP NAUSEA OR VOMITING 05/23/17 22:45 Naloxone HCl (Narcan Inj) 0.4 mg UNSCH PRN IV PUSH SEE LABEL COMMENTS 05/23/17 22:45 Senna/Docusate Sodium (Liz-Colace) 1 tab BID PO 05/24/17 09:00 05/30/17 09:10 Magnesium Hydroxide (Milk Of Magnesia Liq) 30 ml Q12H PRN PO Mild constipation 05/23/17 22:45 05/25/17 20:38 Sennosides (Senokot) 17.2 mg Q12H PRN PO Moderate constipation 05/23/17 22:45 Bisacodyl (Dulcolax Supp) 10 mg DAILY PRN RECTAL SEVERE CONSITIPATION 05/23/17 22:45 Lactulose (Lactulose Liq) 30 ml DAILY PRN PO SEVERE CONSITIPATION 05/23/17 22:45 Ceftriaxone Sodium 1000 mg/ Sodium Chloride 100 ml @ 200 mls/hr Q24H IV 05/24/17 12:00 05/30/17 11:59 Carbidopa/Levodopa (Sinemet 25-100 Mg) 1 tab 0700,1100,1400,1800 PO 05/27/17 07:15 05/30/17 09:10 Sodium Chloride (Sodium Chloride) 2 gm DAILY PO 05/28/17 09:00 05/30/17 09:23 Sodium Chloride 1,000 ml @ 0 mls/hr Q0M IV 05/27/17 13:47 Cefazolin Sodium/ Dextrose 50 ml @ 100 mls/hr J[employer]NEYMAN ME[employer] CUTTER IV 05/27/17 14:00 05/31/17 13:59 05/28/17 09:48 Midodrine (Proamatine) 2.5 mg BID@0600,1200 PO 05/28/17 06:00 05/30/17 11:58 Miscellaneous (Pill Splitter) 1 ea UNSCH PRN OTHER SEE LABEL COMMENTS 05/27/17 20:30 (Christina Rivas) Current Medications Current Medications Sodium Chloride 1,000 ml @ 999 mls/hr BOLUS ONCE IV Last administered on at 21:57; Start 05/23/17 at 21:45; Stop 05/23/17 at 22:45; Status DC Sodium Chloride (NS Flush) 2 ml UNSCH PRN IV FLUSH FLUSH AFTER USING IV ACCESS Last administered on 05/27/17at 12:16; Start 05/23/17 at 22:45 Sodium Chloride (NS Flush) 2 ml BID IV FLUSH Last administered on 06/02/17at 09: 52; Start 05/24/17 at 09:00 Acetaminophen (Tylenol) 650 mg Q4H PRN PO TEMP > 100.4; Start 05/23/17 at 22:45 Ondansetron HCl (Zofran Inj) 4 mg Q6H PRN IVP NAUSEA OR VOMITING; Start at 22:45 Heparin Sodium (Porcine) (Heparin Inj) 5,000 units Q12H SQ Last administered on 05/27/17at 08:54; Start 05/24/17 at 09:00; Stop 05/27/17 at 13:45; Status DC Naloxone HCl (Narcan Inj) 0.4 mg UNSCH PRN IV PUSH SEE LABEL COMMENTS; Start at 22:45 Senna/Docusate Sodium (Liz-Colace) 1 tab BID PO Last administered on at 09:52; Start 05/24/17 at 09:00 Magnesium Hydroxide (Milk Of Magnesia Liq) 30 ml Q12H PRN PO Mild constipation Last administered on 05/25/17at 20:38; Start 05/23/17 at 22:45 Sennosides (Senokot) 17.2 mg Q12H PRN PO Moderate constipation; Start 05/23/17 at 22:45 Bisacodyl (Dulcolax Supp) 10 mg DAILY PRN RECTAL SEVERE CONSITIPATION; Start at 22:45 Lactulose (Lactulose Liq) 30 ml DAILY PRN PO SEVERE CONSITIPATION; Start at 22:45 Ceftriaxone Sodium 1000 mg/ Sodium Chloride 100 ml @ 200 mls/hr Q24H IV Last administered on 05/31/17at 11:09; Start 05/24/17 at 12:00; Stop 05/31/17 at 14:07 ; Status DC Gadodiamide (Omniscan Pf Inj) 10 ml STK-MED ONCE IVCONTRAST Last administered on 05/24/17at 11:34; Start 05/24/17 at 11:34; Stop 05/24/17 at 11:35; Status DC Carbidopa/Levodopa (Sinemet 25-100 Mg) 1 tab TID@0700,1100,1500 PO Last administered on 05/25/17at 06:12; Start 05/24/17 at 15:00; Stop 05/25/17 at 08:54 ; Status DC Carbidopa/Levodopa (Sinemet 25-100 Mg) 1 tab QID PO Last administered on 20:26; Start 05/25/17 at 09:00; Stop 05/27/17 at 07:14; Status DC Carbidopa/Levodopa (Sinemet 25-100 Mg) 1 tab 0700,1100,1400,1800 PO Last administered on 06/02/17at 09:51; Start 05/27/17 at 07:15 Sodium Chloride (Sodium Chloride) 2 gm DAILY PO Last administered on 05/31/17at 09:20; Start 05/28/17 at 09:00; Stop 05/31/17 at 14:00; Status DC Sodium Chloride 1,000 ml @ 0 mls/hr Q0M IV ; Start 05/27/17 at 13:47; Stop at 14:03; Status DC Cefazolin Sodium/ Dextrose 50 ml @ 100 mls/hr JOURNEY[employer] ME[employer] CUTTER IV Last administered on 05/28/17 09:48; Start 05/27/17 at 14:00; Stop 05/31/17 at 13:59; Status DC Midodrine (Proamatine) 2.5 mg BID@0600,1200 PO Last administered on 06/02/17 06:04; Start 05/28/17 at 06:00 Miscellaneous (Pill Splitter) 1 ea UNSCH PRN OTHER SEE LABEL COMMENTS; Start at 20:30 Fentanyl Citrate (fentaNYL INJ) 100 mcg STK-MED ONCE .ROUTE Last administered on 05/28/17 09:33; Start 05/28/17 at 09:33; Stop 05/28/17 at 09:34; Status DC Midazolam HCl (Versed Inj) 2 mg STK-MED ONCE .ROUTE Last administered on 09:33; Start 05/28/17 at 09:33; Stop 05/28/17 at 09:34; Status DC Chlorhexidine Gluconate (Hibiclens 4% Top Soln) 1 applic HS TOP Last administered on 06/01/17at 20:56; Start 05/30/17 at 21:00; Stop 06/01/17 at 21:01 ; Status DC Potassium Chloride (KCl) 40 meq ONCE PO Last administered on 05/31/17 14:57; Start 05/31/17 at 14:00; Stop 05/31/17 at 14:01; Status DC Potassium Chloride (KCl) 40 meq ONCE ONCE PO Last administered on 05/31/17at 17 :50; Start 05/31/17 at 18:00; Stop 05/31/17 at 18:01; Status DC Amoxicillin/ Clavulanate Potassium (Augmentin) 500 mg BID PO Last administered on 06/02/17at 09:52; Start 05/31/17 at 17:00 Lactated Ringer's 1,000 ml @ 30 mls/hr Q24H PRN IV SEE LABEL COMMENTS; Start at 21:30; Stop 06/04/17 at 21:29 Sodium Chloride 500 ml @ 30 mls/hr [id number] PRN IV SEE LABEL COMMENTS; Start at 21:30; Stop 06/04/17 at 21:29 Metoprolol Tartrate (Lopressor) 25 mg JOURNEYMAN ME[employer] CUTTER PRN PO SEE LABEL COMMENTS; Start 06/01/17 at 21:30; Stop 06/04/17 at 21:29 Povidone Iodine (Betadine 5% Antisepsis Kit) 1 applic JOURNEYMAN ME[employer] CUTTER PRN EACH NARE SEE LABEL COMMENTS; Start 06/01/17 at 21:30; Stop 06/04/17 at 21:29 Chlorhexidine Gluconate (Chlorhexidine 2% Cloth) 3 pack JOURNEYMAN ME[employer] C[employer]TER PRN TOPICAL SEE LABEL COMMENTS; Start 06/01/17 at 21:30; Stop 06/04/17 at 21:29 (Nba Mansfield MD) Medical Decision Making MDM Remarks 72 y/o female with suspected Normal Pressure Hydrocephalus, s/p placement of lumbar drain 05/28/17 PT and patient reports improvement in her gait (Christina Rivas) Plan Plan Remarks will cont draining CSF per protocol for now, awaiting further input from Neurology, will await for Dr. Mansfield regarding to dc'ing her lumbar drain cont PT, gait training and evaluations nonchemical dvt prophylaxis when drain in place Dr. Shyla Winston, Dr. Shyla sharma family in room present who also reports pt's gait much improved following lumbar drain placement, dw patient and family regarding placement of permanent ventriculoperitoneal shunt, they both agree to proceed with surgery anticipate surgery Friday or early next week, make NPO Friday Midnight dc lumbar drain - flat per protocol (Christina Rivas) Attending Statement As above He condition has improve significantly. She will benefit by surgery with a [employer] shunt We have discussed the details including the [id number] details of the surgical procedure, its indications, alternatives, risks, and potential complications. Risks and potential complications include, but are not limited to, infection, blood loss, CSF leak, partial or complete loss of sight in one or both eyes, paresis, paralysis, permanent pain or difficulty swallowing, loss of bowel or bladder function, complications from anesthesia, blood clot, stroke , myocardial infarction, or even . The exam, history, and the medical decision-making described in the above note were completed with the assistance of the mid-level provider. I reviewed and agree with the findings presented. I attest that I had a [id number] encounter with the patient on the same day, and personally performed and documented my assessment and findings in the medical record. (Nba Mansfield MD) Christina Rivas May 30, 2017 12:37 Nba Mansfield MD Jun 02, 2017 10:50
[2017-05-30 16:35] VITALS: BP_SYST 118; BP_SYST 178; BP_DIAS 75; BP_DIAS 83; PULSE 84; RESP 17; TEMP 99.2; O2SAT 99
[2017-05-30] MEDS: CHLORHEXIDINE GLUCONATE 4% SOLN 120 ML BTL TOP SCH (21:10)
[2017-05-30 21:49] VITALS: BP 126/85; PULSE 83; RESP 17; TEMP 99.1; O2SAT 98
[2017-05-31] VITALS (7 sets, daily range): BP systolic 122–180; BP diastolic 70–86; PULSE 69–81; RESP 18–22; TEMP 97.2–98.1; O2SAT 94–100
--- NOTE | 2017-05-31 02:56 | RADRPT ---
EXAM DATE/TIME: 05/31/2017 02:35 [facility] COMPARISON: No previous studies available for comparison. INDICATIONS : Pain due to fall. MEDICAL HISTORY : HTN. Hyperlipidemia. Osteoporosis. Glaucoma. SURGICAL HISTORY : Breast cyst removal X2. Right ovary removed. ENCOUNTER: Initial ACUITY: 1 day PAIN SCORE: 10/10 LOCATION: Left upper extremity elbow. FINDINGS: Two view examination of the left elbow demonstrates no soft tissue swelling, joint effusion, fracture or dislocation. Bony mineralization is normal. CONCLUSION: No fracture or obvious effusion. Olvin Stein MD on May 31, 2017 at 2:54 Board Certified Radiologist. This report was verified electronically.
--- NOTE | 2017-05-31 02:56 | RADRPT ---
EXAM DATE/TIME: 05/31/2017 02:28 [facility] COMPARISON: No previous studies available for comparison. INDICATIONS : Pain due to fall. MEDICAL HISTORY : HTN. Hyperlipidemia. Osteoporosis. Glaucoma. SURGICAL HISTORY : Breast cyst removal X2. Right ovary removed. ENCOUNTER: Initial ACUITY: 1 day PAIN SCORE: 10/10 LOCATION: Lumbar FINDINGS: Two view examination was performed. There are five non-rib bearing vertebral bodies. Mild levoscolio sis of the thoracolumbar spine. Vertebral body and disc heights are maintained throughout without fra cture or listhesis.. CONCLUSION: 1. Mild levoscoliosis of the thoracolumbar spine. 2. No fracture or listhesis. Olvin Stein MD on May 31, 2017 at 2:53 Board Certified Radiologist. This report was verified electronically.
[2017-05-31] MEDS: CARBIDOPA/LEVODOPA 25 MG/100 MG TAB PO SCH ×4 (06:14→17:49)
[2017-05-31] MEDS: MIDODRINE 5 MG TAB PO SCH ×2 (06:14→11:09)
[2017-05-31] MEDS: SODIUM CHLORIDE 0.9% FLUSH 10 ML FLUSH IV FLUSH SCH ×2 (09:20→21:56)
[2017-05-31] MEDS: DOCUSATE SODIUM 50 MG/SENNA 8.6 MG TAB PO SCH ×2 (09:20→21:56)
[2017-05-31] MEDS: SODIUM CHLORIDE 1 GRAM TAB PO SCH (09:20)
--- NOTE | 2017-05-31 10:27 | HHI.NSPN ---
(Christina Rivas) Note Status Status: Progress Note (Christina Rivas) Interval History Interval History Ms. Rodriguez is a 72 year old female with suspected Normal Pressure Hydrocephalus. Neurosurgery consulted for evaluation. 05/28: going down for placement of lumbar drain, no changes neurologically 05/29: patient reports possibly some improvement in her gait this morning. currently being drained. 05/30: continues with lumbar draining. ambulated with physical therapy which I was present for. patient herself reports she has seen overall an improvement in her gait, she says "much better". (Christina Rivas) Labs, Micro, & Vital Signs Results Date Time Temp Pulse Resp B/P (MAP) Pulse Ox O2 Delivery O2 Flow Rate FiO2 05/31/17 09:23 Room Air 05/31/17 08:59 97.5 75 18 180/86 (117) 100 05/31/17 04:00 97.9 75 18 159/80 (106) 99 05/31/17 01:30 99 21 05/31/17 00:00 97.6 81 22 174/83 (113) 94 05/30/17 21:49 99.1 83 17 126/85 (99) 98 05/30/17 21:00 Room Air 05/30/17 19:24 Room Air 05/30/17 16:35 99.2 84 17 178/83 (114) 99 118/75 (89) 05/30/17 12:00 97.9 73 18 159/81 (107) 98 149/84 (105) Constitutional Vital Signs Date Time Temp Pulse Resp B/P (MAP) Pulse Ox O2 Delivery O2 Flow Rate FiO2 05/31/17 09:23 Room Air 05/31/17 08:59 97.5 75 18 180/86 (117) 100 05/31/17 04:00 97.9 75 18 159/80 (106) 99 05/31/17 01:30 99 21 05/31/17 00:00 97.6 81 22 174/83 (113) 94 05/30/17 21:49 99.1 83 17 126/85 (99) 98 05/30/17 21:00 Room Air 05/30/17 19:24 Room Air 05/30/17 16:35 99.2 84 17 178/83 (114) 99 118/75 (89) 05/30/17 12:00 97.9 73 18 159/81 (107) 98 149/84 (105) (Christina Rivas) Physical Exam GEN: no apparent distress, Neuro: alert, conversing. CN: pupils equal, facial motor symmetric, follows commands. Motor:moves all four extremities Heart: regular rate, rhythm Resp: clear, nonlabored breathing HEENT: normocephalic, nonicteric sclera (Christina Rivas) Ms Rodriguez is alert, awake and oriented to time, place and person. Speech is fluent. Cranial nerve examination: pupils to be equal, round and reactive to light. Extra-ocular movements are intact. Facial motor and sensory function are normal and symmetrical. Gross hearing appears intact. Sternocleidomastoid and trapezius muscles are symmetrical. Other cranial nerves are intact. Neck is soft and supple with a good range of motion without pain. Muscle strength is normal in all muscle groups of both upper and lower extremities. Sensory examination is intact to light touch and pin prick in both the upper and lower extremities. Deep tendon reflexes are symmetrical in both upper and lower extremities. There is a bilateral plantar flexion response. Cerebellar examination is unremarkable, without deficits. HEART: Regular rate and rhythm. Lungs. Clear ABDOMEN: Soft. KIN Warm and dry (Nba Mansfield MD) Medications Current Medications Current Medications Medications (Trade) Dose Ordered Sig/Maggy Route PRN Reason Start Time Stop Time Status Last Admin Dose Admin Sodium Chloride (NS Flush) 2 ml UNSCH PRN IV FLUSH FLUSH AFTER USING IV ACCESS 05/23/17 22:45 05/27/17 12:16 Sodium Chloride (NS Flush) 2 ml BID IV FLUSH 05/24/17 09:00 05/31/17 09:20 Acetaminophen (Tylenol) 650 mg Q4H PRN PO TEMP > 100.4 05/23/17 22:45 Ondansetron HCl (Zofran Inj) 4 mg Q6H PRN IVP NAUSEA OR VOMITING 05/23/17 22:45 Naloxone HCl (Narcan Inj) 0.4 mg UNSCH PRN IV PUSH SEE LABEL COMMENTS 05/23/17 22:45 Senna/Docusate Sodium (Liz-Colace) 1 tab BID PO 05/24/17 09:00 05/31/17 09:20 Magnesium Hydroxide (Milk Of Magnesia Liq) 30 ml Q12H PRN PO Mild constipation 05/23/17 22:45 05/25/17 20:38 Sennosides (Senokot) 17.2 mg Q12H PRN PO Moderate constipation 05/23/17 22:45 Bisacodyl (Dulcolax Supp) 10 mg DAILY PRN RECTAL SEVERE CONSITIPATION 05/23/17 22:45 Lactulose (Lactulose Liq) 30 ml DAILY PRN PO SEVERE CONSITIPATION 05/23/17 22:45 Ceftriaxone Sodium 1000 mg/ Sodium Chloride 100 ml @ 200 mls/hr Q24H IV 05/24/17 12:00 05/31/17 11:09 Carbidopa/Levodopa (Sinemet 25-100 Mg) 1 tab 0700,1100,1400,1800 PO 05/27/17 07:15 05/31/17 11:09 Sodium Chloride (Sodium Chloride) 2 gm DAILY PO 05/28/17 09:00 05/31/17 09:20 Sodium Chloride 1,000 ml @ 0 mls/hr Q0M IV 05/27/17 13:47 Cefazolin Sodium/ Dextrose 50 ml @ 100 mls/hr FISCAL AGENT IV 05/27/17 14:00 05/31/17 13:59 05/28/17 09:48 Midodrine (Proamatine) 2.5 mg BID@0600,1200 PO 05/28/17 06:00 05/31/17 11:09 Miscellaneous (Pill Splitter) 1 ea UNSCH PRN OTHER SEE LABEL COMMENTS 05/27/17 20:30 Chlorhexidine Gluconate (Hibiclens 4% Top Soln) 1 applic HS TOP 05/30/17 21:00 06/01/17 21:01 05/30/17 21:10 (Christina Rivas) Current Medications Current Medications Sodium Chloride 1,000 ml @ 999 mls/hr BOLUS ONCE IV Last administered on at 21:57; Start 05/23/17 at 21:45; Stop 05/23/17 at 22:45; Status DC Sodium Chloride (NS Flush) 2 ml UNSCH PRN IV FLUSH FLUSH AFTER USING IV ACCESS Last administered on 05/27/17at 12:16; Start 05/23/17 at 22:45 Sodium Chloride (NS Flush) 2 ml BID IV FLUSH Last administered on 06/02/17at 09: 52; Start 05/24/17 at 09:00 Acetaminophen (Tylenol) 650 mg Q4H PRN PO TEMP > 100.4; Start 05/23/17 at 22:45 Ondansetron HCl (Zofran Inj) 4 mg Q6H PRN IVP NAUSEA OR VOMITING; Start at 22:45 Heparin Sodium (Porcine) (Heparin Inj) 5,000 units Q12H SQ Last administered on 05/27/17at 08:54; Start 05/24/17 at 09:00; Stop 05/27/17 at 13:45; Status DC Naloxone HCl (Narcan Inj) 0.4 mg UNSCH PRN IV PUSH SEE LABEL COMMENTS; Start at 22:45 Senna/Docusate Sodium (Liz-Colace) 1 tab BID PO Last administered on at 09:52; Start 05/24/17 at 09:00 Magnesium Hydroxide (Milk Of Magnesia Liq) 30 ml Q12H PRN PO Mild constipation Last administered on 05/25/17at 20:38; Start 05/23/17 at 22:45 Sennosides (Senokot) 17.2 mg Q12H PRN PO Moderate constipation; Start 05/23/17 at 22:45 Bisacodyl (Dulcolax Supp) 10 mg DAILY PRN RECTAL SEVERE CONSITIPATION; Start at 22:45 Lactulose (Lactulose Liq) 30 ml DAILY PRN PO SEVERE CONSITIPATION; Start at 22:45 Ceftriaxone Sodium 1000 mg/ Sodium Chloride 100 ml @ 200 mls/hr Q24H IV Last administered on 05/31/17at 11:09; Start 05/24/17 at 12:00; Stop 05/31/17 at 14:07 ; Status DC Gadodiamide (Omniscan Pf Inj) 10 ml STK-MED ONCE IVCONTRAST Last administered on 05/24/17at 11:34; Start 05/24/17 at 11:34; Stop 05/24/17 at 11:35; Status DC Carbidopa/Levodopa (Sinemet 25-100 Mg) 1 tab TID@0700,1100,1500 PO Last administered on 05/25/17at 06:12; Start 05/24/17 at 15:00; Stop 05/25/17 at 08:54 ; Status DC Carbidopa/Levodopa (Sinemet 25-100 Mg) 1 tab QID PO Last administered on at 20:26; Start 05/25/17 at 09:00; Stop 05/27/17 at 07:14; Status DC Carbidopa/Levodopa (Sinemet 25-100 Mg) 1 tab 0700,1100,1400,1800 PO Last administered on 06/02/17at 09:51; Start 05/27/17 at 07:15 Sodium Chloride (Sodium Chloride) 2 gm DAILY PO Last administered on 05/31/17at 09:20; Start 05/28/17 at 09:00; Stop 05/31/17 at 14:00; Status DC Sodium Chloride 1,000 ml @ 0 mls/hr Q0M IV ; Start 05/27/17 at 13:47; Stop at 14:03; Status DC Cefazolin Sodium/ Dextrose 50 ml @ 100 mls/hr FISCAL AGENT IV Last administered on 05/28/17at 09:48; Start 05/27/17 at 14:00; Stop 05/31/17 at 13:59; Status DC Midodrine (Proamatine) 2.5 mg BID@0600,1200 PO Last administered on 06/02/17at 06:04; Start 05/28/17 at 06:00 Miscellaneous (Pill Splitter) 1 ea UNSCH PRN OTHER SEE LABEL COMMENTS; Start at 20:30 Fentanyl Citrate (fentaNYL INJ) 100 mcg STK-MED ONCE .ROUTE Last administered on 05/28/17at 09:33; Start 05/28/17 at 09:33; Stop 05/28/17 at 09:34; Status DC Midazolam HCl (Versed Inj) 2 mg STK-MED ONCE .ROUTE Last administered on at 09:33; Start 05/28/17 at 09:33; Stop 05/28/17 at 09:34; Status DC Chlorhexidine Gluconate (Hibiclens 4% Top Soln) 1 applic HS TOP Last administered on 06/01/17at 20:56; Start 05/30/17 at 21:00; Stop 06/01/17 at 21:01 ; Status DC Potassium Chloride (KCl) 40 meq ONCE PO Last administered on 05/31/17at 14:57; Start 05/31/17 at 14:00; Stop 05/31/17 at 14:01; Status DC Potassium Chloride (KCl) 40 meq ONCE ONCE PO Last administered on 05/31/17at 17 :50; Start 05/31/17 at 18:00; Stop 05/31/17 at 18:01; Status DC Amoxicillin/ Clavulanate Potassium (Augmentin) 500 mg BID PO Last administered on 06/02/17at 09:52; Start 05/31/17 at 17:00 Lactated Ringer's 1,000 ml @ 30 mls/hr Q24H PRN IV SEE LABEL COMMENTS; Start at 21:30; Stop 06/04/17 at 21:29 Sodium Chloride 500 ml @ 30 mls/hr [id number] PRN IV SEE LABEL COMMENTS; Start at 21:30; Stop 06/04/17 at 21:29 Metoprolol Tartrate (Lopressor) 25 mg FISCAL AGENT PRN PO SEE LABEL COMMENTS; Start 06/01/17 at 21:30; Stop 06/04/17 at 21:29 Povidone Iodine (Betadine 5% Antisepsis Kit) 1 applic FISCAL AGENT PRN EACH NARE SEE LABEL COMMENTS; Start 06/01/17 at 21:30; Stop 06/04/17 at 21:29 Chlorhexidine Gluconate (Chlorhexidine 2% Cloth) 3 pack FISCAL AGENT PRN TOPICAL SEE LABEL COMMENTS; Start 06/01/17 at 21:30; Stop 06/04/17 at 21:29 (Nba Mansfield MD) Medical Decision Making MDM Remarks 72 y/o female with suspected Normal Pressure Hydrocephalus, s/p placement of lumbar drain 05/28/17 PT and patient reports improvement in her gait (Christina Rivas) Plan Plan Remarks for placement of WELDER APPRENTICE GAS shunt friday NPO Friday Midnight SCDs and TEDs for dvt prophylaxis, hold chem proph in view of surgery friday consents in chart (Christina Rivas) Attending Statement She is much better. Going for WELDER APPRENTICE GAS shunt The exam, history, and the medical decision-making described in the above note were completed with the assistance of the mid-level provider. I reviewed and agree with the findings presented. I attest that I had a [id number] encounter with the patient on the same day, and personally performed and documented my assessment and findings in the medical record. (Nba Mansfield MD) Christina Rivas May 31, 2017 10:27 Nba Mansfield MD Jun 02, 2017 11:00
[2017-05-31 10:44] LABS: HEMOGLOBIN 13.6 GM/DL (11.6-15.3); MEAN CELL VOLUME 76.6 FL (80.0-100.0); MEAN CORPUSCULAR HEMOGLOBIN 26.8 PG (27.0-34.0); MEAN PLATELET VOLUME 6.4 FL (7.0-11.0); PLATELET COUNT 278 TH/MM3 (150-450); RED BLOOD COUNT 5.09 MIL/MM3 (4.00-5.30); WHITE BLOOD COUNT 5.3 TH/MM3 (4.0-11.0)
--- NOTE | 2017-05-31 10:53 | HHI.PR ---
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 She denied any significant pain, loss of motion or loss of function. X-rays were done and did not reveal any adverse changes. Objective - Vital Signs Date Time Temp Pulse Resp B/P (MAP) Pulse Ox O2 Delivery O2 Flow Rate FiO2 05/31/17 09:23 Room Air 05/31/17 08:59 97.5 75 18 180/86 (117) 100 05/31/17 04:00 97.9 75 18 159/80 (106) 99 05/31/17 01:30 99 21 05/31/17 00:00 97.6 81 22 174/83 (113) 94 05/30/17 21:49 99.1 83 17 126/85 (99) 98 05/30/17 21:00 Room Air 05/30/17 19:24 Room Air 05/30/17 16:35 99.2 84 17 178/83 (114) 99 118/75 (89) 05/30/17 12:00 97.9 73 18 159/81 (107) 98 149/84 (105) I/O 05/30/17 05/30/17 05/30/17 05/31/17 05/31/17 05/31/17 07:00 15:00 23:00 07:00 15:00 23:00 Intake Total 480 ml 720 ml Output Total 10 ml Balance 480 ml -10 ml 720 ml Intake Oral 480 ml 720 ml Output Chest Tube Drainage Total 10 ml # Voids 6 3 1 # Bowel Movements 0 Result Diagram: 05/31/17 1030 05/30/17 0618 Objective Remarks GENERAL: Much more appropriate. SKIN: Warm and dry. HEAD: Normocephalic. Atraumatic. EYES: No scleral icterus. No injection or drainage. NECK: Supple, trachea midline. No JVD or lymphadenopathy. CARDIOVASCULAR: Regular rate and rhythm without murmurs, gallops, or rubs. RESPIRATORY: Breath sounds equal bilaterally. No accessory muscle use. GASTROINTESTINAL: Abdomen soft, non-tender, nondistended. MUSCULOSKELETAL: No cyanosis, or edema. BACK: Nontender without obvious deformity. No CVA tenderness. NEUROLOGICAL: No new focal deficits. A/P Assessment and Plan ASSESSMENT 1. Hyponatremia-repletion done. Hypokalemia. 2. Orthostatic Hypotension. 3. Normal Pressure Hydrocephalus. 4. Pansinusitis. 5. Hypertension. 6. Hyperlipidemia. 7. Osteoporosis. 8. Depression. 9. Glaucoma. PLAN 1. Discontinue the salt tablets and continue the fluid restriction and Midodrine. 2. Potassium repletion. 3. Neurology and Neurosurgery follow. 4. Physical Therapy continues. 5. Convert to oral antibiotics. 6. Follow up laboratory assessment. 7. DVT and PE prophylaxis. Reuben Singh MD May 31, 2017 10:53
[2017-05-31 10:59] LABS: BICARBONATE 28.7 MEQ/L (21.0-32.0); CALCIUM 9.4 MG/DL (8.5-10.1); CREATININE 0.83 MG/DL (0.50-1.00)
[2017-05-31] MEDS: cefTRIAXone INJ 1,000 MG in SODIUM CHLORIDE 0.9% INJ 100 ML IV SCH (11:09)
[2017-05-31] MEDS ORDERED: POTASSIUM CHLORIDE 20 MEQ CONTROLLED RELEASE TAB PO SCH (14:00)
[2017-05-31] MEDS: AMOXICILLIN/CLAVULANATE K 500 MG TAB PO SCH ×2 (17:49→21:56)
[2017-05-31] MEDS ORDERED: POTASSIUM CHLORIDE 20 MEQ CONTROLLED RELEASE TAB PO ONE (18:00)
[2017-05-31] MEDS: CHLORHEXIDINE GLUCONATE 4% SOLN 120 ML BTL TOP SCH (21:56)
[2017-06-01 00:58] VITALS: BP 171/94; PULSE 74; RESP 18; TEMP 97.6; O2SAT 99
[2017-06-01] MEDS: MIDODRINE 5 MG TAB PO SCH ×2 (06:01→10:57)
[2017-06-01] MEDS: CARBIDOPA/LEVODOPA 25 MG/100 MG TAB PO SCH ×4 (06:04→17:07)
[2017-06-01 06:21] VITALS: BP 110/65; PULSE 88; RESP 18; TEMP 98.4; O2SAT 98
[2017-06-01 06:36] LABS: BICARBONATE 24.6 MEQ/L (21.0-32.0); CALCIUM 9.5 MG/DL (8.5-10.1); CREATININE 0.66 MG/DL (0.50-1.00)
[2017-06-01] MEDS: DOCUSATE SODIUM 50 MG/SENNA 8.6 MG TAB PO SCH ×2 (07:44→20:55)
[2017-06-01] MEDS: SODIUM CHLORIDE 0.9% FLUSH 10 ML FLUSH IV FLUSH SCH ×2 (07:44→20:56)
[2017-06-01] MEDS: AMOXICILLIN/CLAVULANATE K 500 MG TAB PO SCH ×2 (07:46→20:55)
[2017-06-01 08:38] VITALS: BP_SYST 130; BP_SYST 136; BP_SYST 93; BP_DIAS 60; BP_DIAS 70; BP_DIAS 86; PULSE 72; RESP 17; TEMP 97.6; O2SAT 99
[2017-06-01 12:26] VITALS: BP_SYST 104; BP_SYST 105; BP_SYST 131; BP_DIAS 66; BP_DIAS 68; BP_DIAS 73; PULSE 72; RESP 18; TEMP 98.5; O2SAT 99
--- NOTE | 2017-06-01 16:08 | HHI.NSPN ---
Note Status Status: Progress Note Interval History Interval History 06/01. Doing very well. gait much improved Labs, Micro, & Vital Signs Results Date Time Temp Pulse Resp B/P (MAP) Pulse Ox O2 Delivery O2 Flow Rate FiO2 06/01/17 12:26 98.5 72 18 131/73 (92) 99 105/68 (80) 104/66 (79) 06/01/17 08:38 97.6 72 17 130/70 (90) 99 136/86 (103) 93/60 (71) 06/01/17 06:21 98.4 88 18 110/65 (80) 98 06/01/17 00:58 97.6 74 18 171/94 (119) 99 05/31/17 20:00 97.2 78 18 134/75 (94) 98 05/31/17 16:31 98.1 69 18 165/84 (111) 98 Constitutional Vital Signs Date Time Temp Pulse Resp B/P (MAP) Pulse Ox O2 Delivery O2 Flow Rate FiO2 06/01/17 12:26 98.5 72 18 131/73 (92) 99 105/68 (80) 104/66 (79) 06/01/17 08:38 97.6 72 17 130/70 (90) 99 136/86 (103) 93/60 (71) 06/01/17 06:21 98.4 88 18 110/65 (80) 98 06/01/17 00:58 97.6 74 18 171/94 (119) 99 05/31/17 20:00 97.2 78 18 134/75 (94) 98 05/31/17 16:31 98.1 69 18 165/84 (111) 98 Physical Exam GEN: no apparent distress, Heart: regular rate, rhythm Resp: clear, nonlabored breathing HEENT: normocephalic, nonicteric sclera Alert, awake and oriented to time, place and person. Speech is fluent. Cranial nerve examination: pupils to be equal, round and reactive to light. Extra-ocular movements are intact. Facial motor and sensory function are normal and symmetrical. Gross hearing appears intact. Sternocleidomastoid and trapezius muscles are symmetrical. Other cranial nerves are intact. Neck is soft and supple with a good range of motion without pain. Muscle strength is normal in all muscle groups of both upper and lower extremities. Sensory examination is intact to light touch and pin prick in both the upper and lower extremities. Deep tendon reflexes are symmetrical in both upper and lower extremities. There is a bilateral plantar flexion response. Cerebellar examination is unremarkable, without deficits. HEART: Regular rate and rhythm. Lungs. Clear ABDOMEN: Soft. SKIN Warm and dry Medications Current Medications Current Medications Sodium Chloride 1,000 ml @ 999 mls/hr BOLUS ONCE IV Last administered on 21:57; Start 05/23/17 at 21:45; Stop 05/23/17 at 22:45; Status DC Sodium Chloride (NS Flush) 2 ml UNSCH PRN IV FLUSH FLUSH AFTER USING IV ACCESS Last administered on 05/27/17 12:16; Start 05/23/17 at 22:45 Sodium Chloride (NS Flush) 2 ml BID IV FLUSH Last administered on 06/02/17 09: 52; Start 05/24/17 at 09:00 Acetaminophen (Tylenol) 650 mg Q4H PRN PO TEMP > 100.4; Start 05/23/17 at 22:45 Ondansetron HCl (Zofran Inj) 4 mg Q6H PRN IVP NAUSEA OR VOMITING; Start at 22:45 Heparin Sodium (Porcine) (Heparin Inj) 5,000 units Q12H SQ Last administered on 05/27/17 08:54; Start 05/24/17 at 09:00; Stop 05/27/17 at 13:45; Status DC Naloxone HCl (Narcan Inj) 0.4 mg UNSCH PRN IV PUSH SEE LABEL COMMENTS; Start at 22:45 Senna/Docusate Sodium (Liz-Colace) 1 tab BID PO Last administered on 09:52; Start 05/24/17 at 09:00 Magnesium Hydroxide (Milk Of Magnesia Liq) 30 ml Q12H PRN PO Mild constipation Last administered on 05/25/17at 20:38; Start 05/23/17 at 22:45 Sennosides (Senokot) 17.2 mg Q12H PRN PO Moderate constipation; Start 05/23/17 at 22:45 Bisacodyl (Dulcolax Supp) 10 mg DAILY PRN RECTAL SEVERE CONSITIPATION; Start at 22:45 Lactulose (Lactulose Liq) 30 ml DAILY PRN PO SEVERE CONSITIPATION; Start at 22:45 Ceftriaxone Sodium 1000 mg/ Sodium Chloride 100 ml @ 200 mls/hr Q24H IV Last administered on 05/31/17at 11:09; Start 05/24/17 at 12:00; Stop 05/31/17 at 14:07 ; Status DC Gadodiamide (Omniscan Pf Inj) 10 ml STK-MED ONCE IVCONTRAST Last administered on 05/24/17at 11:34; Start 05/24/17 at 11:34; Stop 05/24/17 at 11:35; Status DC Carbidopa/Levodopa (Sinemet 25-100 Mg) 1 tab TID@0700,1100,1500 PO Last administered on 05/25/17at 06:12; Start 05/24/17 at 15:00; Stop 05/25/17 at 08:54 ; Status DC Carbidopa/Levodopa (Sinemet 25-100 Mg) 1 tab QID PO Last administered on at 20:26; Start 05/25/17 at 09:00; Stop 05/27/17 at 07:14; Status DC Carbidopa/Levodopa (Sinemet 25-100 Mg) 1 tab 0700,1100,1400,1800 PO Last administered on 06/02/17at 09:51; Start 05/27/17 at 07:15 Sodium Chloride (Sodium Chloride) 2 gm DAILY PO Last administered on 05/31/17at 09:20; Start 05/28/17 at 09:00; Stop 05/31/17 at 14:00; Status DC Sodium Chloride 1,000 ml @ 0 mls/hr Q0M IV ; Start 05/27/17 at 13:47; Stop at 14:03; Status DC Cefazolin Sodium/ Dextrose 50 ml @ 100 mls/hr MANAGER ENGINE IV Last administered on 05/28/17at 09:48; Start 05/27/17 at 14:00; Stop 05/31/17 at 13:59; Status DC Midodrine (Proamatine) 2.5 mg BID@0600,1200 PO Last administered on 06/02/17at 06:04; Start 05/28/17 at 06:00 Miscellaneous (Pill Splitter) 1 ea UNSCH PRN OTHER SEE LABEL COMMENTS; Start at 20:30 Fentanyl Citrate (fentaNYL INJ) 100 mcg STK-MED ONCE .ROUTE Last administered on 05/28/17at 09:33; Start 05/28/17 at 09:33; Stop 05/28/17 at 09:34; Status DC Midazolam HCl (Versed Inj) 2 mg STK-MED ONCE .ROUTE Last administered on at 09:33; Start 05/28/17 at 09:33; Stop 05/28/17 at 09:34; Status DC Chlorhexidine Gluconate (Hibiclens 4% Top Soln) 1 applic HS TOP Last administered on 06/01/17at 20:56; Start 05/30/17 at 21:00; Stop 06/01/17 at 21:01 ; Status DC Potassium Chloride (KCl) 40 meq ONCE PO Last administered on 05/31/17at 14:57; Start 05/31/17 at 14:00; Stop 05/31/17 at 14:01; Status DC Potassium Chloride (KCl) 40 meq ONCE ONCE PO Last administered on 05/31/17at 17 :50; Start 05/31/17 at 18:00; Stop 05/31/17 at 18:01; Status DC Amoxicillin/ Clavulanate Potassium (Augmentin) 500 mg BID PO Last administered on 06/02/17at 09:52; Start 05/31/17 at 17:00 Lactated Ringer's 1,000 ml @ 30 mls/hr Q24H PRN IV SEE LABEL COMMENTS; Start at 21:30; Stop 06/04/17 at 21:29 Sodium Chloride 500 ml @ 30 mls/hr [id number] PRN IV SEE LABEL COMMENTS; Start at 21:30; Stop 06/04/17 at 21:29 Metoprolol Tartrate (Lopressor) 25 mg MANAGER ENGINE PRN PO SEE LABEL COMMENTS; Start 06/01/17 at 21:30; Stop 06/04/17 at 21:29 Povidone Iodine (Betadine 5% Antisepsis Kit) 1 applic MANAGER ENGINE PRN EACH NARE SEE LABEL COMMENTS; Start 06/01/17 at 21:30; Stop 06/04/17 at 21:29 Chlorhexidine Gluconate (Chlorhexidine 2% Cloth) 3 pack MANAGER ENGINE PRN TOPICAL SEE LABEL COMMENTS; Start 06/01/17 at 21:30; Stop 06/04/17 at 21:29 Attending Statement for placement of DRIER AND EVAPORATOR OPERATOR shunt friday. I have discussed the details including the [id number] details of the surgical procedure, its indications, alternatives, risks, and potential complications. Risks and potential complications include, but are not limited to, infection, blood loss, CSF leak, partial or complete loss of sight in one or both eyes, paresis, paralysis, permanent pain or difficulty swallowing, loss of bowel or bladder function, complications from anesthesia, blood clot, stroke, myocardial infarction, or even . NPO Friday Midnight SCDs and TEDs for dvt prophylaxis, hold chem proph in view of surgery friday Nba Mansfield MD Jun 01, 2017 16:08
[2017-06-01 16:20] VITALS: BP_SYST 114; BP_SYST 136; BP_SYST 95; BP_DIAS 57; BP_DIAS 67; BP_DIAS 76; PULSE 68; RESP 18; TEMP 98.1; O2SAT 97
[2017-06-01 20:11] VITALS: BP_SYST 106; BP_SYST 130; BP_SYST 135; BP_DIAS 63; BP_DIAS 69; BP_DIAS 74; PULSE 75; RESP 17; TEMP 98.4; O2SAT 99
[2017-06-01] MEDS: CHLORHEXIDINE GLUCONATE 4% SOLN 120 ML BTL TOP SCH (20:56)
[2017-06-01] MEDS ORDERED: SODIUM CHLORID 0.9% 500 ML IV PRN (21:30)
[2017-06-01] MEDS ORDERED: CHLORHEXIDINE GLUCONATE 2 % 1 PACK (2 CLOTHS) TOPICAL PRN (21:30)
[2017-06-01] MEDS ORDERED: POVIDONE IODINE 5% (ANTISEPSIS KIT) 4 APPLICATIONS EACH NARE PRN (21:30)
[2017-06-01] MEDS ORDERED: METOPROLOL TARTRATE 25 MG TAB PO PRN (21:30)
[2017-06-01] MEDS ORDERED: LACTATED RINGER'S 1000 ML IV PRN (21:30)
[2017-06-02 00:32] VITALS: BP 126/79; PULSE 86; RESP 17; TEMP 97.9; O2SAT 98
[2017-06-02 04:37] VITALS: BP 147/87; PULSE 81; RESP 17; TEMP 99.6; O2SAT 95
[2017-06-02] MEDS: MIDODRINE 5 MG TAB PO SCH ×2 (06:04→12:19)
[2017-06-02] MEDS: CARBIDOPA/LEVODOPA 25 MG/100 MG TAB PO SCH ×4 (06:04→18:36)
[2017-06-02 08:00] VITALS: BP 106/68; PULSE 82; RESP 16; TEMP 97.8; O2SAT 94
[2017-06-02] MEDS: DOCUSATE SODIUM 50 MG/SENNA 8.6 MG TAB PO SCH ×2 (09:52→20:32)
[2017-06-02] MEDS: AMOXICILLIN/CLAVULANATE K 500 MG TAB PO SCH ×2 (09:52→20:32)
[2017-06-02] MEDS: SODIUM CHLORIDE 0.9% FLUSH 10 ML FLUSH IV FLUSH SCH ×2 (09:52→20:32)
[2017-06-02 12:00] VITALS: BP 147/76; PULSE 70; RESP 16; TEMP 97.9; O2SAT 99
[2017-06-02 16:00] VITALS: BP 167/87; PULSE 72; RESP 16; TEMP 98.2; O2SAT 97
--- NOTE | 2017-06-02 16:28 | HHI.NSPN ---
(Christina Rivas) Note Status Status: Progress Note (Christina Rivas) Interval History Interval History Ms. Rodriguez is a 72 year old female with suspected Normal Pressure Hydrocephalus. Neurosurgery consulted for evaluation. 05/28: going down for placement of lumbar drain, no changes neurologically 05/29: patient reports possibly some improvement in her gait this morning. currently being drained. 05/30: continues with lumbar draining. ambulated with physical therapy which I was present for. patient herself reports she has seen overall an improvement in her gait, she says "much better". 06/02: SSIS ETL DEVELOPER shunt rescheduled for tomorrow am. no changes neurologically overnight (Christina Rivas) Labs, Micro, & Vital Signs Results Date Time Temp Pulse Resp B/P (MAP) Pulse Ox O2 Delivery O2 Flow Rate FiO2 06/02/17 08:00 97.8 82 16 106/68 (81) 94 06/02/17 04:37 99.6 81 17 147/87 (107) 95 06/02/17 00:32 97.9 86 17 126/79 (95) 98 06/01/17 20:11 98.4 75 17 135/74 (94) 99 130/69 (89) 106/63 (77) Constitutional Vital Signs Date Time Temp Pulse Resp B/P (MAP) Pulse Ox O2 Delivery O2 Flow Rate FiO2 06/02/17 08:00 97.8 82 16 106/68 (81) 94 06/02/17 04:37 99.6 81 17 147/87 (107) 95 06/02/17 00:32 97.9 86 17 126/79 (95) 98 06/01/17 20:11 98.4 75 17 135/74 (94) 99 130/69 (89) 106/63 (77) (Christina Rivas) Physical Exam GEN: no apparent distress, Heart: regular rate, rhythm Resp: clear, nonlabored breathing HEENT: normocephalic, nonicteric sclera Alert, awake and oriented to time, place and person. Speech is fluent. Cranial nerve examination: pupils to be equal, round and reactive to light. Extra-ocular movements are intact. Facial motor and sensory function are normal and symmetrical. Gross hearing appears intact. Sternocleidomastoid and trapezius muscles are symmetrical. Other cranial nerves are intact. Neck is soft and supple with a good range of motion without pain. Muscle strength is normal in all muscle groups of both upper and lower extremities. Sensory examination is intact to light touch and pin prick in both the upper and lower extremities. Deep tendon reflexes are symmetrical in both upper and lower extremities. There is a bilateral plantar flexion response. Cerebellar examination is unremarkable, without deficits. HEART: Regular rate and rhythm. Lungs. Clear ABDOMEN: Soft. SKIN Warm and dry (Christina Rivas) GEN: no apparent distress, Heart: regular rate, rhythm Resp: clear, nonlabored breathing HEENT: normocephalic, nonicteric sclera Alert, awake and oriented to time, place and person. Speech is fluent. Cranial nerve examination: pupils to be equal, round and reactive to light. Extra-ocular movements are intact. Facial motor and sensory function are normal and symmetrical. Gross hearing appears intact. Sternocleidomastoid and trapezius muscles are symmetrical. Other cranial nerves are intact. Neck is soft and supple with a good range of motion without pain. Muscle strength is normal in all muscle groups of both upper and lower extremities. Sensory examination is intact to light touch and pin prick in both the upper and lower extremities. Deep tendon reflexes are symmetrical in both upper and lower extremities. There is a bilateral plantar flexion response. Cerebellar examination is unremarkable, without deficits. HEART: Regular rate and rhythm. Lungs. Clear ABDOMEN: Soft. SKIN Warm and dry (Nba Mansfield MD) Medications Current Medications Current Medications Medications (Trade) Dose Ordered Sig/Maggy Route PRN Reason Start Time Stop Time Status Last Admin Dose Admin Sodium Chloride (NS Flush) 2 ml UNSCH PRN IV FLUSH FLUSH AFTER USING IV ACCESS 05/23/17 22:45 05/27/17 12:16 Sodium Chloride (NS Flush) 2 ml BID IV FLUSH 05/24/17 09:00 06/02/17 09:52 Acetaminophen (Tylenol) 650 mg Q4H PRN PO TEMP > 100.4 05/23/17 22:45 Ondansetron HCl (Zofran Inj) 4 mg Q6H PRN IVP NAUSEA OR VOMITING 05/23/17 22:45 Naloxone HCl (Narcan Inj) 0.4 mg UNSCH PRN IV PUSH SEE LABEL COMMENTS 05/23/17 22:45 Senna/Docusate Sodium (Liz-Colace) 1 tab BID PO 05/24/17 09:00 06/02/17 09:52 Magnesium Hydroxide (Milk Of Magnesia Liq) 30 ml Q12H PRN PO Mild constipation 05/23/17 22:45 05/25/17 20:38 Sennosides (Senokot) 17.2 mg Q12H PRN PO Moderate constipation 05/23/17 22:45 Bisacodyl (Dulcolax Supp) 10 mg DAILY PRN RECTAL SEVERE CONSITIPATION 05/23/17 22:45 Lactulose (Lactulose Liq) 30 ml DAILY PRN PO SEVERE CONSITIPATION 05/23/17 22:45 Carbidopa/Levodopa (Sinemet 25-100 Mg) 1 tab 0700,1100,1400,1800 PO 05/27/17 07:15 06/02/17 14:11 Midodrine (Proamatine) 2.5 mg BID@0600,1200 PO 05/28/17 06:00 06/02/17 12:19 Miscellaneous (Pill Splitter) 1 ea UNSCH PRN OTHER SEE LABEL COMMENTS 05/27/17 20:30 Amoxicillin/ Clavulanate Potassium (Augmentin) 500 mg BID PO 05/31/17 17:00 06/02/17 09:52 Lactated Ringer's 1,000 ml @ 30 mls/hr Q24H PRN IV SEE LABEL COMMENTS 06/01/17 21:30 06/04/17 21:29 Sodium Chloride 500 ml @ 30 mls/hr [id number] PRN IV SEE LABEL COMMENTS 06/01/17 21:30 06/04/17 21:29 Metoprolol Tartrate (Lopressor) 25 mg WIRE WHEELER PRN PO SEE LABEL COMMENTS 06/01/17 21:30 06/04/17 21:29 Povidone Iodine (Betadine 5% Antisepsis Kit) 1 applic WIRE WHEELER PRN EACH NARE SEE LABEL COMMENTS 06/01/17 21:30 06/04/17 21:29 Chlorhexidine Gluconate (Chlorhexidine 2% Cloth) 3 pack WIRE WHEELER PRN TOPICAL SEE LABEL COMMENTS 06/01/17 21:30 06/04/17 21:29 (Christina Rivas) Medical Decision Making MDM Remarks 72 y/o female with suspected Normal Pressure Hydrocephalus, s/p placement of lumbar drain 05/28/17 PT and patient reports improvement in her gait (Christina Rivas) Plan Plan Remarks for placement of SSIS ETL DEVELOPER shunt tomorrow am NPO tonight SCDs and TEDs for dvt prophylaxis, cont hold chem proph consents in chart (Christina Rivas) Attending Statement As above I again discussed the details including the [id number] details of the surgical procedure, its indications, alternatives, risks, and potential complications. Risks and potential complications include, but are not limited to, infection, blood loss, CSF leak, partial or complete loss of sight in one or both eyes, paresis, paralysis, permanent pain or difficulty swallowing, loss of bowel or bladder function, complications from anesthesia, blood clot, stroke , myocardial infarction, or even . The exam, history, and the medical decision-making described in the above note were completed with the assistance of the mid-level provider. I reviewed and agree with the findings presented. I attest that I had a [id number] encounter with the patient on the same day, and personally performed and documented my assessment and findings in the medical record. (Nba Mansfield MD) Christina Rivas Jun 02, 2017 16:28 Nba Mansfield MD Jun 03, 2017 17:05
--- NOTE | 2017-06-02 17:14 | HHI.PR ---
Subjective Remarks She was seen by Neurosurgery and she is not having the procedure until tomorrow. She reports felling fine otherwise. She is anxious to proceed with the procedure in hopes that is will serve to help her situation. She is tolerating the current medication regimen. Objective - Vital Signs Date Time Temp Pulse Resp B/P (MAP) Pulse Ox O2 Delivery O2 Flow Rate FiO2 06/02/17 08:00 97.8 82 16 106/68 (81) 94 06/02/17 04:37 99.6 81 17 147/87 (107) 95 06/02/17 00:32 97.9 86 17 126/79 (95) 98 06/01/17 20:11 98.4 75 17 135/74 (94) 99 130/69 (89) 106/63 (77) I/O 06/01/17 06/01/17 06/01/17 06/02/17 06/02/17 06/02/17 07:00 15:00 23:00 07:00 15:00 23:00 Intake Total 120 ml 480 ml 240 ml Balance 120 ml 480 ml 240 ml Intake Oral 120 ml 480 ml 240 ml # Voids 3 1 6 2 # Bowel Movements 1 1 1 Result Diagram: 05/31/17 1030 06/01/17 0542 Objective Remarks GENERAL: Alert and in no distress. SKIN: Warm and dry. HEAD: Normocephalic. Atraumatic. EYES: No scleral icterus. No injection or drainage. NECK: Supple, trachea midline. No JVD or lymphadenopathy. CARDIOVASCULAR: Regular rate and rhythm without murmurs, gallops or rubs. RESPIRATORY: Breath sounds are equal bilaterally. No accessory muscle use. GASTROINTESTINAL: Abdomen is soft and non-tender. It is nondistended. MUSCULOSKELETAL: There is no cyanosis or edema. BACK: Nontender without obvious deformity. No CVA tenderness. A/P Assessment and Plan ASSESSMENT 1. Hyponatremia and Hypokalemia-repletion done. 2. Orthostatic Hypotension-improved. 3. Normal Pressure Hydrocephalus. 4. Pansinusitis. 5. Hypertension. 6. Hyperlipidemia. 7. Osteoporosis. 8. Depression. 9. Glaucoma. PLAN 1. Continue with use of Midodrine. 2. Potassium repletion. 3. Neurology and Neurosurgery follow. 4. Physical Therapy continues. 5. Continue on oral antibiotics. 6. Follow up laboratory assessment. 7. DVT and PE prophylaxis. Reuben Singh MD Jun 02, 2017 17:14
[2017-06-02 17:57] LABS: HEMATOCRIT 43.3 % (35.0-46.0); HEMOGLOBIN 14.1 GM/DL (11.6-15.3); MEAN CORPUSCULAR HEMOGLOBIN 25.4 PG (27.0-34.0); MEAN CORPUSCULAR HGB CONC 32.6 % (32.0-36.0); PLATELET COUNT 280 TH/MM3 (150-450); RED BLOOD COUNT 5.55 MIL/MM3 (4.00-5.30); RED CELL DISTRIBUTION WIDTH 13.7 % (11.6-17.2); WHITE BLOOD COUNT 6.1 TH/MM3 (4.0-11.0)
[2017-06-02 18:16] LABS: BICARBONATE 28.8 MEQ/L (21.0-32.0); CALCIUM 9.7 MG/DL (8.5-10.1); CREATININE 0.73 MG/DL (0.50-1.00)
[2017-06-02 20:00] VITALS: BP 128/80; PULSE 84; RESP 20; TEMP 97.6; O2SAT 97
[2017-06-03 00:05] VITALS: BP 113/67; PULSE 80; RESP 20; TEMP 97.9; O2SAT 97
[2017-06-03 04:00] VITALS: BP 131/71; PULSE 71; RESP 20; TEMP 97.9; O2SAT 99
[2017-06-03] MEDS: MIDODRINE 5 MG TAB PO SCH ×2 (05:38→12:00)
[2017-06-03] MEDS: CARBIDOPA/LEVODOPA 25 MG/100 MG TAB PO SCH ×4 (06:19→18:32)
[2017-06-03] MEDS ORDERED: ACETAMINOPHEN 1000 MG/100 ML 100 ML IV ONE (06:50)
[2017-06-03] MEDS ORDERED: ARTIFICIAL TEARS OPTH OINT 3.5 APPLIC/3.5 GM TUBO ONE (06:50)
[2017-06-03 07:46] VITALS: BP 137/76; PULSE 66; RESP 17; TEMP 97.8; O2SAT 99
[2017-06-03] MEDS ORDERED: ceFAZolin 2 GM PREMIX 50 ML ONE (08:57)
[2017-06-03] MEDS ORDERED: LIDOCAINE 1%/EPINEPHrine 1:100,000 SOLN 30 ML VIAL ONE (08:57)
[2017-06-03] MEDS ORDERED: BACITRACIN TOP OINT 15 GM TUBE ONE (08:58)
[2017-06-03] MEDS ORDERED: GELFOAM SIZE 100 ONE (08:58)
[2017-06-03] MEDS ORDERED: GENTAMICIN SULFATE 80 MG/2 ML VIAL ONE (08:58)
[2017-06-03] MEDS ORDERED: THROMBIN (TOPICAL) 5,000 UNIT VIAL ONE (08:59)
[2017-06-03] MEDS: SODIUM CHLORIDE 0.9% FLUSH 10 ML FLUSH IV FLUSH SCH ×2 (09:00→21:00)
[2017-06-03] MEDS: DOCUSATE SODIUM 50 MG/SENNA 8.6 MG TAB PO SCH ×2 (09:00→21:45)
[2017-06-03] MEDS: AMOXICILLIN/CLAVULANATE K 500 MG TAB PO SCH ×2 (09:00→21:00)
[2017-06-03] MEDS ORDERED: VANCOMYCIN HCL 1000 MG VIAL ONE (10:01)
[2017-06-03] MEDS ORDERED: SODIUM CHLOR 0.9% 250 ML INJ 250 ML ONE (10:01)
--- NOTE | 2017-06-03 11:25 | PD.OP ---
Operative Report Date of Surgery: Jun 03, 2017 Preoperative Diagnosis: Normal pressure hydrocephalus Postoperative Diagnosis: Normal pressure hydrocephalus Procedure: Placement of ventriculoperitoneal shunt Anesthesia: general endotracheal Surgeon: Nba Mansfield Pickle Sorter(s): Rachelle Tran Operation and Findings: INTRAOPERATIVE FINDINGS: Clear cerebrospinal fluid with an opening pressure of 70 mm of water. INDICATIONS FOR PROCEDURE: Ms Rodriguez is a 72 year old female with history of normal pressure hydrocephalus who presented with progressive gait imbalance and short term memory loss. She had chronic communicating hydrocephalus and his condition was getting progressively worse. She underwent evaluation with placement of a lumbar drain and cerebrospinal fluid drainage with very significant improvement in her symptoms. A ventriculoperitoneal shunt was indicated The [id number] details of the procedure, its indications, alternatives, risks , and potential complications of the surgery were fully discussed with the patient and his family. They fully understood. All their questions were answered. No guarantees were given. They voiced requesting the surgery and signed informed consent.They were offered the alternative of continuing nonsurgical treatment. DETAILS OF THE SURGICAL PROCEDURE:~ After the induction of general anesthesia, endotracheal intubation was performed. A Powers catheter, bilateral SHIRA hose and sequential compression devices were placed and kept throughout the procedure. The patient was positioned supine on a 30-80 table with the head over a gel doughnut. All pressure points were carefully padded with eggcrate mattress. The right frontotemporal parietal area was shaved prepped and draped in the usual sterile fashion, as well as the neck, chest and abdomen. A small incision was made in the patient's right upper quadrant with a #10 blade and the dissection was carried out through the subcutaneous tissue and Yudelka's fascia. The rectus sheath was carefully opened with Metzenbaum scissors and the rectus muscles were split along its fibers. The posterior rectus sheath was elevated and carefully opened. The peritoneum was elevated with mosquitoes and opened in the standard fashion. The peritoneal cavity was visualized and exposed. A pursestring suture was placed around the peritoneal opening. Using a tunneler a subcutaneous tunnel was created connecting the abdominal incision with the planned head incision. A small incision was made in the right frontal area and a self-retaining retractor was placed in the incision. An entry point for the catheter was selected 90 mm posterior to the supraorbital rim and 25 mm lateral to the midline. A Midas Elie was used to create the darien hole. The dura was coagulated with the bipolar in a cruciform fashion. A peritoneal catheter was placed in the subcutaneous tunnel previously created and a pocket was created underneath the galea for placement of the valve. A Whotever programmable valve has calibrated at a pressure of 120 mmHg and flushed according to the navigation teacher's instructions. The valve was secured to the proximal end of the peritoneal catheter using a 2-0 silk. Then, a ventricular catheter was advanced into the ventricular system. A good flow of cerebrospinal fluid was obtained.~ The catheter was connected to the valve and the connection secured with a 2-0 silk. Cerebrospinal fluid was noted to drip through the distal end of the peritoneal catheter. The peritoneal catheter was placed in the peritoneal cavity under direct visualization. The pursestring suture was carefully adjusted with special care not to strangulate the catheter. The rectus sheath was closed using interrupted 2-0 Vicryl suture. The Yudelka's fascia was approximated with 3-0 Vicryl, and the subcutaneous with 3-0 Vicryl. The skin was closed with running subcuticular 4-0 Vicryl in the abdomen. The skin incision was closed using interrupted 3-0 Vicryl for the galea and jessica to the skin. At the end of the procedure, the sponge, needle and instrument counts were all correct. The estimated blood was less than 50 cc. No blood transfusion was given. No intraoperative complications occurred. The patient received preoperative prophylactic antibiotics. The patient was then extubated and transferred to the recovery room in stable condition. Nba Mansfield MD Jun 03, 2017 11:25
[2017-06-03] MEDS ORDERED: DO NOT ADM ANY ANTICOAGULANT DRUGS PRN (11:30)
[2017-06-03] MEDS ORDERED: SUGAMMADEX SODIUM 200 MG/2 ML VIAL IV PUSH ONE (11:40)
[2017-06-03] MEDS ORDERED: GLYCOPYRROLATE 1 MG/5 ML SYRINGE IV PUSH ONE (12:00)
[2017-06-03] MEDS ORDERED: ROCURONIUM INJ 50 MG/5 ML SYRINGE IV PUSH ONE (12:00)
[2017-06-03] MEDS ORDERED: PROPOFOL 200 MG/20 ML AMP IV ONE (12:00)
[2017-06-03] MEDS ORDERED: ESMOLOL HCL 100 MG/10 ML VIAL IV ONE (12:00)
[2017-06-03] MEDS ORDERED: ePHEDrine/NS 25 MG/5 ML SYRINGE IV ONE (12:00)
[2017-06-03] MEDS ORDERED: ONDANSETRON HCL 4 MG/2 ML VIAL IV ONE (12:00)
[2017-06-03] MEDS ORDERED: PHENYLEPH/NS 1000 MCG/10 ML SYR IV ONE (12:00)
[2017-06-03] MEDS ORDERED: LIDOCAINE HCL 1% PF 5 ML SYRINGE OTHER ONE (12:00)
[2017-06-03] MEDS ORDERED: DEXAMETHASONE SOD PHOS 4 MG/ML VIAL IV ONE (12:00)
[2017-06-03] MEDS ORDERED: ACETAMINOPHEN 325 MG TAB PO PRN (12:15)
[2017-06-03] MEDS ORDERED: MORPHINE SULFATE 4 MG/ML INJ IV PUSH PRN (12:15)
[2017-06-03] MEDS ORDERED: ACETAMINOPHEN/HYDROcodone 325 MG/10 MG TAB PO PRN ×2 (12:15)
[2017-06-03] MEDS ORDERED: MORPHINE SULFATE 2 MG/ML INJ IV PUSH PRN (12:15)
[2017-06-03 12:38] LABS: TOTAL PROTEIN,CSF 33.8 MG/DL (15.0-45.0)
[2017-06-03 13:07] LABS: SUPERNATE COLOR TUBE #1 CLEAR (CLEAR)
[2017-06-03 13:08] LABS: CSF LYMPHOCYTES 0 %; CSF NEUTROPHILS 0 %
[2017-06-03 13:09] LABS: RBC TUBE #1 13 /MM3; WBC TUBE #1 0 /MM3 (0-10)
[2017-06-03 16:30] VITALS: BP 137/78; PULSE 76; RESP 18; TEMP 98.3; O2SAT 95
[2017-06-03] MEDS ORDERED: ceFAZolin 2 GM PREMIX 50 ML IV SCH (17:00)
[2017-06-03] MEDS: NS + KCL 20 MEQ INJ 1,000 ML IV SCH (18:29)
[2017-06-03] MEDS: CEFAZOLIN INJ 2,000 MG in SODIUM CHLORIDE 0.9% INJ 100 ML IV SCH (18:29)
--- NOTE | 2017-06-03 19:56 | HHI.PR ---
Subjective Remarks She had the procedure performed for placement of a ventriculoperitoneal shunt today. She appears to be comfortable and she denies any adverse changes. She is with report of good tolerance of the current treatment plan. Objective - Vital Signs Date Time Temp Pulse Resp B/P (MAP) Pulse Ox O2 Delivery O2 Flow Rate FiO2 06/03/17 16:30 98.3 76 18 137/78 (97) 95 06/03/17 15:50 71 14 148/73 (98) 97 Room Air 06/03/17 15:00 64 14 146/70 (95) 97 Room Air 06/03/17 14:00 65 14 156/72 (100) 98 Room Air 06/03/17 13:00 65 14 156/72 (100) 98 Room Air 06/03/17 12:45 65 14 145/69 (94) 98 Room Air 06/03/17 12:30 67 14 137/67 (90) 97 Room Air 06/03/17 12:15 74 14 130/66 (87) 97 Room Air 06/03/17 12:00 72 14 136/73 (94) 98 Room Air 06/03/17 11:45 77 14 125/71 (89) 97 Nasal Cannula 2 06/03/17 11:33 97.8 88 14 119/69 (86) 99 Nasal Cannula 2 06/03/17 07:46 97.8 66 17 137/76 (96) 99 06/03/17 04:00 97.9 71 20 131/71 (91) 99 06/03/17 00:05 97.9 80 20 113/67 (82) 97 06/02/17 20:00 97.6 84 20 128/80 (96) 97 I/O 06/02/17 06/02/17 06/02/17 06/03/17 06/03/17 06/03/17 07:00 15:00 23:00 07:00 15:00 23:00 Intake Total 240 ml 700 ml Output Total 200 ml Balance 240 ml 500 ml Intake Oral 240 ml Other 700 ml Output Urine Total 200 ml # Voids 2 3 # Bowel Movements 1 1 Result Diagram: 06/02/17 1646 06/02/17 1646 Objective Remarks GENERAL: She is alert and appears to be in no acute distress. SKIN: Warm and dry to exam. HEAD: Normocephalic. There is a bandage wrapped over her head. EYES: No scleral icterus. No injection or drainage. NECK: Supple, trachea midline. No JVD or lymphadenopathy. CARDIOVASCULAR: Regular rate and rhythm without murmurs, gallops or rubs. RESPIRATORY: Breath sounds equal bilaterally. No accessory muscle use. GASTROINTESTINAL: Abdomen soft, non-tender and nondistended. MUSCULOSKELETAL: No cyanosis or edema. BACK: Nontender without obvious deformity. No CVA tenderness. NEUROLOGICAL: There are no lateralizing focal deficits. A/P Assessment and Plan ASSESSMENT 1. Ventriculoperitoneal Shunt. 2. Normal Pressure Hydrocephalus. 3. Orthostatic Hypotension-improved. 4. Hyponatremia and Hypokalemia-repletion done. 5. Pansinusitis. 6. Hypertension. 7. Hyperlipidemia. 8. Osteoporosis. 9. Depression. 10. Glaucoma. PLAN 1. Continue with use of Midodrine. 2. Potassium repletion as needed. 3. Neurology and Neurosurgery follow. 4. Physical Therapy continues. 5. Continue on oral antibiotics. 6. Follow up laboratory assessment. 7. DVT and PE prophylaxis. Reuben Singh MD Jun 03, 2017 19:56
[2017-06-03 20:35] VITALS: BP 133/70; PULSE 74; RESP 17; TEMP 97.9; O2SAT 95
[2017-06-04] VITALS (7 sets, daily range): BP systolic 125–178; BP diastolic 67–87; PULSE 69–82; RESP 16–18; TEMP 97.3–99.1; O2SAT 95–100
[2017-06-04] MEDS: NS + KCL 20 MEQ INJ 1,000 ML IV SCH (01:18)
[2017-06-04] MEDS: CEFAZOLIN INJ 2,000 MG in SODIUM CHLORIDE 0.9% INJ 100 ML IV SCH ×2 (01:18→08:18)
[2017-06-04] MEDS: MIDODRINE 5 MG TAB PO SCH ×2 (06:25→12:00)
[2017-06-04] MEDS: DOCUSATE SODIUM 50 MG/SENNA 8.6 MG TAB PO SCH ×2 (08:18→21:26)
[2017-06-04] MEDS: AMOXICILLIN/CLAVULANATE K 500 MG TAB PO SCH ×2 (08:18→21:26)
[2017-06-04] MEDS ORDERED: PANTOPRAZOLE SODIUM 40 MG VIAL IVP SCH (09:00)
[2017-06-04] MEDS: SODIUM CHLORIDE 0.9% FLUSH 10 ML FLUSH IV FLUSH SCH ×2 (09:00→21:26)
--- NOTE | 2017-06-04 09:49 | HHI.NSPN ---
Note Status Status: Progress Note Interval History Interval History Ms. Rodriguez is a 72 year old female with suspected Normal Pressure Hydrocephalus. Neurosurgery consulted for evaluation. 05/28: going down for placement of lumbar drain, no changes neurologically 05/29: patient reports possibly some improvement in her gait this morning. currently being drained. 05/30: continues with lumbar draining. ambulated with physical therapy which I was present for. patient herself reports she has seen overall an improvement in her gait, she says "much better". 06/02: ASSESSMENT COUNSELOR shunt rescheduled for tomorrow am. no changes neurologically overnight 06/03: s/p placement of ventriculoperitoneal shunt yesterday, patient doing well , resting comfortably, reports minimal surgical pain, pending f/u CT Brain. Labs, Micro, & Vital Signs Results Date Time Temp Pulse Resp B/P (MAP) Pulse Ox O2 Delivery O2 Flow Rate FiO2 06/04/17 08:00 98.4 77 17 167/87 (113) 95 06/04/17 04:30 97.3 77 16 178/87 (117) 99 06/04/17 00:45 82 16 125/78 (94) 100 06/03/17 20:35 97.9 74 17 133/70 (91) 95 06/03/17 16:30 98.3 76 18 137/78 (97) 95 06/03/17 15:50 71 14 148/73 (98) 97 Room Air 06/03/17 15:00 64 14 146/70 (95) 97 Room Air 06/03/17 14:00 65 14 156/72 (100) 98 Room Air 06/03/17 13:00 65 14 156/72 (100) 98 Room Air 06/03/17 12:45 65 14 145/69 (94) 98 Room Air 06/03/17 12:30 67 14 137/67 (90) 97 Room Air 06/03/17 12:15 74 14 130/66 (87) 97 Room Air 06/03/17 12:00 72 14 136/73 (94) 98 Room Air 06/03/17 11:45 77 14 125/71 (89) 97 Nasal Cannula 2 06/03/17 11:33 97.8 88 14 119/69 (86) 99 Nasal Cannula 2 Constitutional Vital Signs Date Time Temp Pulse Resp B/P (MAP) Pulse Ox O2 Delivery O2 Flow Rate FiO2 06/04/17 08:00 98.4 77 17 167/87 (113) 95 06/04/17 04:30 97.3 77 16 178/87 (117) 99 06/04/17 00:45 82 16 125/78 (94) 100 06/03/17 20:35 97.9 74 17 133/70 (91) 95 06/03/17 16:30 98.3 76 18 137/78 (97) 95 06/03/17 15:50 71 14 148/73 (98) 97 Room Air 06/03/17 15:00 64 14 146/70 (95) 97 Room Air 06/03/17 14:00 65 14 156/72 (100) 98 Room Air 06/03/17 13:00 65 14 156/72 (100) 98 Room Air 06/03/17 12:45 65 14 145/69 (94) 98 Room Air 06/03/17 12:30 67 14 137/67 (90) 97 Room Air 06/03/17 12:15 74 14 130/66 (87) 97 Room Air 06/03/17 12:00 72 14 136/73 (94) 98 Room Air 06/03/17 11:45 77 14 125/71 (89) 97 Nasal Cannula 2 06/03/17 11:33 97.8 88 14 119/69 (86) 99 Nasal Cannula 2 Physical Exam Ms. Fields is alert, awake. Resting comfortably in bed. Follows commands. Surgical wounds covered with clean, dry dressing. Cranial nerve examination: pupils equal round and reactive to light. Facial motor are normal and symmetrical. Neck is soft and supple Motor: moves all four extremities symmetrically Sensory examination is intact to light touch in both the upper and lower extremities. Medications Current Medications Current Medications Medications (Trade) Dose Ordered Sig/Maggy Route PRN Reason Start Time Stop Time Status Last Admin Dose Admin Sodium Chloride (NS Flush) 2 ml UNSCH PRN IV FLUSH FLUSH AFTER USING IV ACCESS 05/23/17 22:45 05/27/17 12:16 Sodium Chloride (NS Flush) 2 ml BID IV FLUSH 05/24/17 09:00 06/02/17 20:32 Ondansetron HCl (Zofran Inj) 4 mg Q6H PRN IVP NAUSEA OR VOMITING 05/23/17 22:45 Naloxone HCl (Narcan Inj) 0.4 mg UNSCH PRN IV PUSH SEE LABEL COMMENTS 05/23/17 22:45 Senna/Docusate Sodium (Liz-Colace) 1 tab BID PO 05/24/17 09:00 06/04/17 08:18 Magnesium Hydroxide (Milk Of Magnesia Liq) 30 ml Q12H PRN PO Mild constipation 05/23/17 22:45 05/25/17 20:38 Sennosides (Senokot) 17.2 mg Q12H PRN PO Moderate constipation 05/23/17 22:45 Bisacodyl (Dulcolax Supp) 10 mg DAILY PRN RECTAL SEVERE CONSITIPATION 05/23/17 22:45 Lactulose (Lactulose Liq) 30 ml DAILY PRN PO SEVERE CONSITIPATION 05/23/17 22:45 Carbidopa/Levodopa (Sinemet 25-100 Mg) 1 tab 0700,1100,1400,1800 PO 05/27/17 07:15 06/03/17 18:32 Midodrine (Proamatine) 2.5 mg BID@0600,1200 PO 05/28/17 06:00 06/04/17 06:25 Miscellaneous (Pill Splitter) 1 ea UNSCH PRN OTHER SEE LABEL COMMENTS 05/27/17 20:30 Amoxicillin/ Clavulanate Potassium (Augmentin) 500 mg BID PO 05/31/17 17:00 06/04/17 08:18 Lactated Ringer's 1,000 ml @ 30 mls/hr Q24H PRN IV SEE LABEL COMMENTS 06/01/17 21:30 06/04/17 21:29 Sodium Chloride 500 ml @ 30 mls/hr [id number] PRN IV SEE LABEL COMMENTS 06/01/17 21:30 06/04/17 21:29 Metoprolol Tartrate (Lopressor) 25 mg GRADUATE TEACHER EDUCATION PRN PO SEE LABEL COMMENTS 06/01/17 21:30 06/04/17 21:29 Povidone Iodine (Betadine 5% Antisepsis Kit) 1 applic GRADUATE TEACHER EDUCATION PRN EACH NARE SEE LABEL COMMENTS 06/01/17 21:30 06/04/17 21:29 Chlorhexidine Gluconate (Chlorhexidine 2% Cloth) 3 pack GRADUATE TEACHER EDUCATION PRN TOPICAL SEE LABEL COMMENTS 06/01/17 21:30 06/04/17 21:29 Potassium Chloride/Sodium Chloride 1,000 ml @ 100 mls/hr Q10H IV 06/03/17 13:00 06/04/17 01:18 Pantoprazole Sodium (Protonix Inj) 40 mg DAILY IVP 06/04/17 09:00 06/04/17 08:18 Acetaminophen/ Hydrocodone Bitart ([place] 10-325 Mg) 1 tab Q4H PRN PO PAIN SCALE 1 TO 5 06/03/17 12:15 Acetaminophen/ Hydrocodone Bitart ([place] 10-325 Mg) 2 tab Q4H PRN PO PAIN SCALE 6 TO 10 06/03/17 12:15 Morphine Sulfate (Morphine Inj) 2 mg Q2H PRN IV PUSH PAIN SCALE 1 TO 6 06/03/17 12:15 Morphine Sulfate (Morphine Inj) 4 mg Q2H PRN IV PUSH PAIN SCALE 7 TO 10 06/03/17 12:15 Acetaminophen (Tylenol) 650 mg Q4H PRN PO TEMPERATURE > 101.5 F 06/03/17 12:15 Miscellaneous Information ALL NURSING DEPARTME... UNSCH PRN .XX SEE LABEL COMMENTS 06/03/17 11:30 06/04/17 11:29 Medical Decision Making MDM Remarks 72 y/o female with suspected Normal Pressure Hydrocephalus, s/p placement of lumbar drain 05/28/17 with improvement of gait s/p placement of ventriculoperitoneal shunt 06/03/17 Plan Plan Remarks f/u CT Brain pending, clear to dc from N[facility] standpoint once f/u CT Brain completed recommend dc to rehab, cont PT and gait training f/u in office 06/17/17 for staple removal Reviewed postop CT Brain, stable finding, ok to continue with PT and discharge today Christina Rivas Jun 04, 2017 09:49
--- NOTE | 2017-06-04 11:51 | RADRPT ---
EXAM DATE/TIME: 06/04/2017 10:45 [facility] COMPARISON: MRI BRAIN W & W/O CONTRAST, May 24, 2017, 11:14. CT BRAIN W/O CONTRAST, May 23, 2017, 21:25. INDICATIONS : Post op shunt placement. RADIATION DOSE: 39.19 CTDIvol (mGy) MEDICAL HISTORY : Hypertension. SURGICAL HISTORY : Shunt placement. ENCOUNTER: Initial ACUITY: 1 day PAIN SCALE: 4/10 LOCATION: cranial TECHNIQUE: Multiple contiguous axial images were obtained of the head. Using automated exposure control and adj ustment of the mA and/or kV according to patient size, radiation dose was kept as low as reasonably a chievable to obtain optimal diagnostic quality images. DICOM format image data is available electro nically for review and comparison. FINDINGS: CEREBRUM: Shunt in good position entering from the right. There is no parenchymal hemorrhage. Trace subdural on the left. POSTERIOR FOSSA: The cerebellum and brainstem are intact. The 4th ventricle is midline. The cerebellopontine angle i s unremarkable. EXTRACRANIAL: The visualized portion of the orbits is intact. SKULL: The calvaria is intact. No evidence of skull fracture. CONCLUSION: Shunt in good position without parenchymal hemorrhage Trace subdural on the left Donald Campos MD FACR on June 04, 2017 at 11:47 Board Certified Radiologist. This report was verified electronically.
[2017-06-04] MEDS: CARBIDOPA/LEVODOPA 25 MG/100 MG TAB PO SCH ×3 (12:10→18:00)
--- NOTE | 2017-06-04 15:12 | HHI.PR ---
Subjective Remarks She is currently ambulating with the physical therapist. She appears with no new adverse changes since the ventriculoperitoneal shunt procedure. She is still tolerating the current medication regimen. Periodically, she displays some confusion and appears to reorient on her own. Objective - Vital Signs Date Time Temp Pulse Resp B/P (MAP) Pulse Ox O2 Delivery O2 Flow Rate FiO2 06/04/17 11:34 98.6 69 18 167/79 (108) 97 06/04/17 08:00 98.4 77 17 167/87 (113) 95 06/04/17 04:30 97.3 77 16 178/87 (117) 99 06/04/17 00:45 82 16 125/78 (94) 100 06/03/17 20:35 97.9 74 17 133/70 (91) 95 06/03/17 16:30 98.3 76 18 137/78 (97) 95 06/03/17 15:50 71 14 148/73 (98) 97 Room Air I/O 06/03/17 06/03/17 06/03/17 06/04/17 06/04/17 06/04/17 07:00 15:00 23:00 07:00 15:00 23:00 Intake Total 700 ml 120 ml 1120 ml Output Total 200 ml 250 ml Balance 500 ml 120 ml 870 ml Intake Oral 0 ml IV Total 120 ml 1120 ml Other 700 ml Output Urine Total 200 ml 250 ml # Voids 3 2 # Bowel Movements 1 0 Result Diagram: 06/02/17 1646 06/02/17 1646 Objective Remarks GENERAL: Alert and appears to be with good spirits. SKIN: Warm and dry. HEAD: Normocephalic. Bandaged head. EYES: No scleral icterus. No injection or drainage. NECK: Supple, trachea midline. No JVD or lymphadenopathy. CARDIOVASCULAR: Regular rate and rhythm without murmurs, gallops, or rubs. RESPIRATORY: Breath sounds equal bilaterally. No accessory muscle use. GASTROINTESTINAL: Abdomen soft, non-tender, nondistended. MUSCULOSKELETAL: No cyanosis, or edema. BACK: Nontender without obvious deformity. No CVA tenderness. EXTREMITIES: Free range of motion. Pulses are 3+/4+. No edema. NEUROLOGICAL: There are no lateralizing focal deficits. Gait is still unsteady. A/P Assessment and Plan ASSESSMENT 1. Ventriculoperitoneal Shunt. 2. Normal Pressure Hydrocephalus. 3. Orthostatic Hypotension-improved. 4. Hyponatremia and Hypokalemia-repletion done. 5. Pansinusitis. 6. Hypertension. 7. Hyperlipidemia. 8. Osteoporosis. 9. Depression. 10. Glaucoma. PLAN 1. Continue with use of Midodrine. 2. Potassium repletion as needed. 3. Neurology and Neurosurgery follow. 4. Physical Therapy continues. 5. Follow up laboratory assessment. 6. Discharge Planning. 7. DVT and PE prophylaxis. Reuben Singh MD Jun 04, 2017 15:12
[2017-06-04] MEDS ORDERED: ALENDRONATE SODIUM 70 MG TAB PO SCH (15:45)
[2017-06-04] MEDS ORDERED: ALBUTEROL SULFATE 90 MCG/ACT HFA 8 GM INHALER INH PRN (15:45)
[2017-06-04] MEDS ORDERED: NON-FORMULARY DRUG (Bimatoprost Opth Drops (Lumigan Opth Drops) 1 DROP) EACH EYE SCH (21:00)
[2017-06-04] MEDS: LATANOPROST 0.005% OPHT SOLN 2.5 ML BTL EACH EYE SCH (21:25)
[2017-06-04] MEDS: FLUTICASONE PROPIONATE 44 MCG/ACT 10.6 GM INHALER INH SCH (21:25)
[2017-06-05 04:00] VITALS: BP 152/84; PULSE 76; RESP 17; TEMP 98.6; O2SAT 96
[2017-06-05] MEDS: CARBIDOPA/LEVODOPA 25 MG/100 MG TAB PO SCH ×4 (06:09→18:00)
[2017-06-05] MEDS: MIDODRINE 5 MG TAB PO SCH ×2 (06:09→12:00)
[2017-06-05 06:56] LABS: AUTOMATED NEUTROPHIL # 3.9 TH/MM3 (1.8-7.7); BASOPHIL % 0.7 % (0.0-2.0); EOSINOPHIL # 0.2 TH/MM3 (0-0.4); EOSINOPHIL % 3.1 % (0.0-4.0); HEMATOCRIT 37.9 % (35.0-46.0); HEMOGLOBIN 12.6 GM/DL (11.6-15.3); LYMPH % 17.8 % (9.0-44.0); MEAN CELL VOLUME 76.5 FL (80.0-100.0); MEAN CORPUSCULAR HEMOGLOBIN 25.5 PG (27.0-34.0); MEAN CORPUSCULAR HGB CONC 33.3 % (32.0-36.0); MEAN PLATELET VOLUME 7.5 FL (7.0-11.0); MONO % 11.9 % (0.0-8.0); MONOCYTE # 0.7 TH/MM3 (0-0.9); NEUT % 66.5 % (16.0-70.0); PLATELET COUNT 218 TH/MM3 (150-450); RED BLOOD COUNT 4.96 MIL/MM3 (4.00-5.30); RED CELL DISTRIBUTION WIDTH 13.5 % (11.6-17.2); WHITE BLOOD COUNT 5.8 TH/MM3 (4.0-11.0)
[2017-06-05 07:13] LABS: BICARBONATE 23.8 MEQ/L (21.0-32.0); CALCIUM 8.9 MG/DL (8.5-10.1); CREATININE 0.49 MG/DL (0.50-1.00)
[2017-06-05 08:00] VITALS: BP 134/78; PULSE 74; RESP 20; TEMP 98.4; O2SAT 98
[2017-06-05] MEDS: SODIUM CHLORIDE 0.9% FLUSH 10 ML FLUSH IV FLUSH SCH ×2 (09:00→19:31)
[2017-06-05] MEDS: AMOXICILLIN/CLAVULANATE K 500 MG TAB PO SCH ×2 (09:00→19:28)
--- NOTE | 2017-06-05 09:26 | HHI.PR ---
Subjective Remarks s/p shunt Objective Vital Signs Date Time Temp Pulse Resp B/P (MAP) Pulse Ox O2 Delivery O2 Flow Rate FiO2 06/05/17 08:00 98.4 74 20 134/78 (96) 98 06/05/17 04:00 98.6 76 17 152/84 (106) 96 06/04/17 16:35 98.3 72 17 144/67 (92) 96 06/04/17 12:00 99.1 82 16 146/75 (98) 97 06/04/17 11:34 98.6 69 18 167/79 (108) 97 I/O 06/04/17 06/04/17 06/04/17 06/05/17 06/05/17 06/05/17 07:00 15:00 23:00 07:00 15:00 23:00 Intake Total 1120 ml 700 ml Output Total 250 ml 500 ml Balance 870 ml 700 ml -500 ml Intake Oral 0 ml 700 ml IV Total 1120 ml Output Urine Total 250 ml 500 ml # Voids 2 4 1 # Bowel Movements 0 0 Result Diagram: 06/05/1760306/05/17 06 Objective Remarks awake no tremor with legs on [place] [facility] [place] she walks with smaller slow steps but not retropulsing this am drain in can walk backwards some i think overall a little better with drain not a major amount considering her disablitly however it may be beneficial to go forward with the shunt will defer to [facility] opinion on their gait eval today keep midodrine and sinemet will fu 06/05/17 sleepy this am did walk to commode Assessment and Plan Assessment and Plan imp labs ok x na 129 stand bp low not great change after few doses sinemet inc frequency sister coming into town may need csf drain for nph when she does oob PT i will dw them today check echo for low bp problem is fluid restricted but need higher standing bp 05/27/17 OH start midodrine if echo ok salt pills [facility] for suspected nph oob/PT on sinemet inc dose 05/28/17 echo neg bp low for lumbar drain will see if gait better and ms better after that check cortisol level na 135 on midodrine and nacl 05/29/17 looks a little better on drain will see how does follow standing bps on sinemet and midodrine 06/05/17 will follow i dw sister after rehab for a week or two will know better if can live on own to move up by sister probably better option Isaac Winston MD Jun 05, 2017 09:26
[2017-06-05] MEDS: PANTOPRAZOLE SOD 40 MG DELAYED RELEASE TAB PO SCH (09:27)
[2017-06-05] MEDS: SERTRALINE HCL 50 MG TAB PO SCH (09:27)
[2017-06-05] MEDS: FLUTICASONE PROPIONATE 44 MCG/ACT 10.6 GM INHALER INH SCH ×2 (09:27→19:29)
[2017-06-05] MEDS: FLUTICASONE PROPIONATE 50 MCG/ACT 16 GM NASAL SPRAY EACH NARE SCH (09:27)
[2017-06-05] MEDS: DOCUSATE SODIUM 50 MG/SENNA 8.6 MG TAB PO SCH ×2 (09:27→19:28)
[2017-06-05] MEDS: PRAVASTATIN SOD 40 MG TAB PO SCH (09:27)
[2017-06-05] MEDS: LISINOPRIL 10 MG TAB PO SCH (09:27)
--- NOTE | 2017-06-05 11:19 | HHI.NSPN ---
(Christina Rivas) Note Status Status: Progress Note (Christina Rivas) Interval History Interval History Ms. Rodriguez is a 72 year old female with suspected Normal Pressure Hydrocephalus. Neurosurgery consulted for evaluation. 05/28: going down for placement of lumbar drain, no changes neurologically 05/29: patient reports possibly some improvement in her gait this morning. currently being drained. 05/30: continues with lumbar draining. ambulated with physical therapy which I was present for. patient herself reports she has seen overall an improvement in her gait, she says "much better". 06/02: [employer] shunt rescheduled for tomorrow am. no changes neurologically overnight 06/04: s/p placement of ventriculoperitoneal shunt yesterday, patient doing well , resting comfortably, reports minimal surgical pain, pending f/u CT Brain. 06/05: doing well, alert, no acute events overnight, minimal to no surgical pain. sister in room, very pleased and thankful. (Christina Rvias) Labs, Micro, & Vital Signs Results Date Time Temp Pulse Resp B/P (MAP) Pulse Ox O2 Delivery O2 Flow Rate FiO2 06/05/17 08:00 98.4 74 20 134/78 (96) 98 06/05/17 04:00 98.6 76 17 152/84 (106) 96 06/04/17 16:35 98.3 72 17 144/67 (92) 96 06/04/17 12:00 99.1 82 16 146/75 (98) 97 06/04/17 11:34 98.6 69 18 167/79 (108) 97 06/06/17 07:00 Output Total 500 ml Balance -500 ml Constitutional Vital Signs Date Time Temp Pulse Resp B/P (MAP) Pulse Ox O2 Delivery O2 Flow Rate FiO2 06/05/17 08:00 98.4 74 20 134/78 (96) 98 06/05/17 04:00 98.6 76 17 152/84 (106) 96 06/04/17 16:35 98.3 72 17 144/67 (92) 96 06/04/17 12:00 99.1 82 16 146/75 (98) 97 06/04/17 11:34 98.6 69 18 167/79 (108) 97 06/06/17 07:00 Output Total 500 ml Balance -500 ml (Christina Rivas) Review of Systems Constitutional: DENIES: Fever, Chills Respiratory: DENIES: Shortness of breath Cardiovascular: DENIES: Chest pain Neurologic: DENIES: Headache, Localized weakness (Christina Rivas) Physical Exam Ms. Fields is alert, awake. Resting comfortably in bed. Follows commands. Surgical wounds are clean and dry. Belly in incision covered with Optifoam dressing. Head dressing removed, placed with clean [place]. Cranial nerve: pupils equal round and reactive to light. Gross EOMs intact. Facial motor are normal and symmetrical. Neck is soft and supple Motor: moves all four extremities symmetrically Sensory examination is intact to light touch in both the upper and lower extremities. (Christina Rivas) Medications Current Medications Current Medications Medications (Trade) Dose Ordered Sig/Maggy Route PRN Reason Start Time Stop Time Status Last Admin Dose Admin Sodium Chloride (NS Flush) 2 ml UNSCH PRN IV FLUSH FLUSH AFTER USING IV ACCESS 05/23/17 22:45 05/27/17 12:16 Sodium Chloride (NS Flush) 2 ml BID IV FLUSH 05/24/17 09:00 06/04/17 21:26 Ondansetron HCl (Zofran Inj) 4 mg Q6H PRN IVP NAUSEA OR VOMITING 05/23/17 22:45 Naloxone HCl (Narcan Inj) 0.4 mg UNSCH PRN IV PUSH SEE LABEL COMMENTS 05/23/17 22:45 Senna/Docusate Sodium (Liz-Colace) 1 tab BID PO 05/24/17 09:00 06/05/17 09:27 Magnesium Hydroxide (Milk Of Magnesia Liq) 30 ml Q12H PRN PO Mild constipation 05/23/17 22:45 05/25/17 20:38 Sennosides (Senokot) 17.2 mg Q12H PRN PO Moderate constipation 05/23/17 22:45 Bisacodyl (Dulcolax Supp) 10 mg DAILY PRN RECTAL SEVERE CONSITIPATION 05/23/17 22:45 Lactulose (Lactulose Liq) 30 ml DAILY PRN PO SEVERE CONSITIPATION 05/23/17 22:45 Carbidopa/Levodopa (Sinemet 25-100 Mg) 1 tab 0700,1100,1400,1800 PO 05/27/17 07:15 06/05/17 06:09 Midodrine (Proamatine) 2.5 mg BID@0600,1200 PO 05/28/17 06:00 06/05/17 06:09 Miscellaneous (Pill Splitter) 1 ea UNSCH PRN OTHER SEE LABEL COMMENTS 05/27/17 20:30 Amoxicillin/ Clavulanate Potassium (Augmentin) 500 mg BID PO 05/31/17 17:00 06/04/17 21:26 Acetaminophen/ Hydrocodone Bitart ([place] 10-325 Mg) 1 tab Q4H PRN PO PAIN SCALE 1 TO 5 06/03/17 12:15 Acetaminophen (Tylenol) 650 mg Q4H PRN PO TEMPERATURE > 101.5 F 06/03/17 12:15 Pantoprazole Sodium (Protonix) 40 mg DAILY PO 06/05/17 09:00 06/05/17 09:27 Lisinopril (Prinivil) 10 mg DAILY PO 06/05/17 09:00 06/05/17 09:27 Albuterol Sulfate (Proair Hfa Inh) 2 puff TID PRN INH SHORTNESS OF BREATH 06/04/17 15:45 Fluticasone Propionate (Flovent Hfa 44 Mcg Inh) 2 puff BID INH 06/04/17 21:00 06/05/17 09:27 Fluticasone Propionate (Flonase Emanuel Spr) 2 spray DAILY EACH NARE 06/05/17 09:00 06/05/17 09:27 Pravastatin Sodium (Pravachol) 40 mg DAILY PO 06/05/17 09:00 06/05/17 09:27 Sertraline HCl (Zoloft) 50 mg DAILY PO 06/05/17 09:00 06/05/17 09:27 Latanoprost (Xalatan 0.005% Opth Soln) 1 drop HS EACH EYE 06/04/17 21:00 06/04/17 21:25 (Christina Rivas) Medical Decision Making MDM Remarks 72 y/o female with suspected Normal Pressure Hydrocephalus, s/p placement of lumbar drain 05/28/17 with improvement of gait s/p placement of ventriculoperitoneal shunt 06/03/17 (Christina Rivas) Plan Plan Remarks doing well post-operatively, cont PT, gait training clear to dc rehab from N[facility] standpoint discussed with sister in room, her questions answered f/u in office 06/17/17 for staple removal (Christina Rivas) Attending Statement As above The exam, history, and the medical decision-making described in the above note were completed with the assistance of the mid-level provider. I reviewed and agree with the findings presented. I attest that I had a [id number] encounter with the patient on the same day, and personally performed and documented my assessment and findings in the medical record. (Nba Mansfield MD) Christina Rivas Jun 05, 2017 11:19 Nba Mansfield MD Jun 08, 2017 12:31
[2017-06-05 12:00] VITALS: BP 125/71; PULSE 78; RESP 20; TEMP 97.7; O2SAT 95
[2017-06-05] MEDS ORDERED: METOCLOPRAMIDE HCL 10 MG/2 ML VIAL IV PUSH ONE (14:00)
--- NOTE | 2017-06-05 14:22 | HHI.PR ---
Subjective Remarks She is complaining of some abdominal pain at this time. She has not been with good oral intake today as well. She further appears with some confusion at times. Her sister reports that she did not rest well last night and also had some complaint of abdominal pain then. She has been cleared by Neurosurgery for discharge to a rehab center. Objective - Vital Signs Date Time Temp Pulse Resp B/P (MAP) Pulse Ox O2 Delivery O2 Flow Rate FiO2 06/05/17 12:00 97.7 78 20 125/71 (89) 95 06/05/17 08:00 98.4 74 20 134/78 (96) 98 06/05/17 04:00 98.6 76 17 152/84 (106) 96 06/04/17 16:35 98.3 72 17 144/67 (92) 96 I/O 06/04/17 06/04/17 06/04/17 06/05/17 06/05/17 06/05/17 07:00 15:00 23:00 07:00 15:00 23:00 Intake Total 1120 ml 700 ml Output Total 250 ml 800 ml Balance 870 ml 700 ml -800 ml Intake Oral 0 ml 700 ml IV Total 1120 ml Output Urine Total 250 ml 800 ml # Voids 2 4 2 # Bowel Movements 0 0 Result Diagram: 06/05/17 0604 06/05/17 0604 Objective Remarks GENERAL: Alert and appears very tired. Complains of some abdominal pain. SKIN: Warm and dry. HEAD: Normocephalic. Bandage on the head at the surgical site. EYES: No scleral icterus. No injection or drainage. NECK: Supple, trachea midline. No JVD or lymphadenopathy. CARDIOVASCULAR: Regular rate and rhythm without murmurs, gallops, or rubs. RESPIRATORY: Breath sounds equal bilaterally. No accessory muscle use. GASTROINTESTINAL: Abdomen is soft. There is mild tenderness to palpation with somewhat hyperactive bowel sounds. MUSCULOSKELETAL: No cyanosis or edema. BACK: Nontender without obvious deformity. No CVA tenderness. A/P Assessment and Plan ASSESSMENT 1. Ventriculoperitoneal Shunt. 2. Normal Pressure Hydrocephalus. 3. Orthostatic Hypotension-improved. 4. Hyponatremia and Hypokalemia-repletion done. 5. Pansinusitis. 6. Hypertension. 7. Hyperlipidemia. 8. Osteoporosis. 9. Depression. 10. Glaucoma. PLAN 1. Continue with use of Midodrine. 2. Metoclopramide, Protonix and Decadron pulse dosing today. 3. Neurology and Neurosurgery dispositions are given. 4. Physical Therapy continues. 5. X-ray of the Abdomen to be done. 6. Discharge Planning. 7. DVT and PE prophylaxis. Reuben Singh MD Jun 05, 2017 14:22
[2017-06-05] MEDS ORDERED: DEXAMETHASONE SOD PHOS 4 MG/ML VIAL IV PUSH ONE (14:30)
[2017-06-05 16:00] VITALS: BP 121/69; PULSE 87; RESP 20; TEMP 95.5; O2SAT 100
--- NOTE | 2017-06-05 16:45 | RADRPT ---
EXAM DATE/TIME: 06/05/2017 15:04 [facility] COMPARISON: CT BRAIN W/O CONTRAST, June 04, 2017, 10:45. CT BRAIN W/O CONTRAST, May 23, 2017, 21:25. SPINE L UMBMT LTD (AP & LAT), May 31, 2017, 2:28. INDICATIONS : Abdominal pain. MEDICAL HISTORY : Osteoporosis. HTN. Hyperlipidemia. SURGICAL HISTORY : Breast cyst removal X2. Right ovary removed. Breast biopsy. ENCOUNTER: Subsequent ACUITY: 1 day PAIN SCORE: 1/10 LOCATION: Bilateral Abdomen FINDINGS: There is no evidence of bowel obstruction or ileus. Scattered phleboliths are noted within the right hemipelvis. Degenerative scoliosis of the lumbar spine are noted. V-P shunt is noted with its tip in the right lower quadrant. CONCLUSION: No evidence of bowel obstruction or ileus. Alfredo Youngblood MD on June 05, 2017 at 16:41 Board Certified Radiologist. This report was verified electronically.
[2017-06-05] MEDS: LATANOPROST 0.005% OPHT SOLN 2.5 ML BTL EACH EYE SCH (19:30)
[2017-06-05 20:00] VITALS: BP_SYST 106; BP_SYST 109; BP_SYST 91; BP_DIAS 53; BP_DIAS 62; BP_DIAS 63; PULSE 87; RESP 20; TEMP 97.5; O2SAT 96
[2017-06-06] VITALS: BP 135/76; PULSE 79; RESP 20; TEMP 96.2; O2SAT 97
[2017-06-06] MEDS: MIDODRINE 5 MG TAB PO SCH (06:08)
[2017-06-06] MEDS: CARBIDOPA/LEVODOPA 25 MG/100 MG TAB PO SCH (06:08)
[2017-06-06] MEDS: PRAVASTATIN SOD 40 MG TAB PO SCH (07:26)
[2017-06-06] MEDS: SERTRALINE HCL 50 MG TAB PO SCH (07:26)
[2017-06-06] MEDS: DOCUSATE SODIUM 50 MG/SENNA 8.6 MG TAB PO SCH (07:26)
[2017-06-06] MEDS: LISINOPRIL 10 MG TAB PO SCH (07:26)
[2017-06-06] MEDS: PANTOPRAZOLE SOD 40 MG DELAYED RELEASE TAB PO SCH (07:26)
[2017-06-06] MEDS: AMOXICILLIN/CLAVULANATE K 500 MG TAB PO SCH (07:26)
[2017-06-06] MEDS: SODIUM CHLORIDE 0.9% FLUSH 10 ML FLUSH IV FLUSH SCH (07:33)
[2017-06-06] MEDS: FLUTICASONE PROPIONATE 50 MCG/ACT 16 GM NASAL SPRAY EACH NARE SCH (07:33)
[2017-06-06] MEDS: FLUTICASONE PROPIONATE 44 MCG/ACT 10.6 GM INHALER INH SCH (07:33)
--- NOTE | 2017-06-06 07:35 | HHI.PR ---
Subjective Remarks s/p shunt Objective Vital Signs Date Time Temp Pulse Resp B/P (MAP) Pulse Ox O2 Delivery O2 Flow Rate FiO2 06/06/17 00:00 96.2 79 20 135/76 (95) 97 06/05/17 20:00 97.5 87 20 109/63 (78) 96 106/62 (77) 91/53 (66) 06/05/17 16:00 95.5 87 20 121/69 (86) 100 06/05/17 12:00 97.7 78 20 125/71 (89) 95 06/05/17 08:00 98.4 74 20 134/78 (96) 98 I/O 06/05/17 06/05/17 06/05/17 06/06/17 06/06/17 06/06/17 07:00 15:00 23:00 07:00 15:00 23:00 Intake Total 700 ml 360 ml Output Total 800 ml 600 ml Balance -800 ml 100 ml 360 ml Intake Oral 700 ml 360 ml Output Urine Total 800 ml 600 ml # Voids 2 5 1 # Bowel Movements 0 0 Result Diagram: 06/05/1704 06/05/17 06 Objective Remarks awake no tremor with legs on sitting knows [facility] [place] hospital oob she walks with smaller slow steps but not retropulsing this am drain in can walk backwards some i think overall a little better with drain not a major amount considering her disablitly however it may be beneficial to go forward with the shunt will defer to [facility] opinion on their gait eval today keep midodrine and sinemet will fu 06/05/17 sleepy this am did walk to commode 06/06/17 [employer] MOVES ALL WELL AND QUICKLY Assessment and Plan Assessment and Plan imp labs ok x na 129 stand bp low not great change after few doses sinemet inc frequency sister coming into town may need csf drain for nph when she does oob PT i will dw them today check echo for low bp problem is fluid restricted but need higher standing bp 05/27/17 OH start midodrine if echo ok salt pills [facility] for suspected nph oob/PT on sinemet inc dose 05/28/17 echo neg bp low for lumbar drain will see if gait better and ms better after that check cortisol level na 135 on midodrine and nacl 05/29/17 looks a little better on drain will see how does follow standing bps on sinemet and midodrine 06/05/17 will follow i dw sister after rehab for a week or two will know better if can live on own to move up by sister probably better option 06/06/17 much better today stand bp still low will fu office 10 days echo nl ok to rehab Isaac Winston MD Jun 06, 2017 07:35
[2017-06-06 08:00] VITALS: BP 142/77; PULSE 77; RESP 16; TEMP 96.7; O2SAT 98
--- NOTE | 2017-06-06 08:18 | HHI.PR ---
Subjective Remarks She is more comfortable this morning. She states that the abdominal pain is gone. She states that she looks forward to going to rehab and getting stronger. She is also looking forward to getting more nutrition in regular food today. There are no other adverse changes reported. Objective - Vital Signs Date Time Temp Pulse Resp B/P (MAP) Pulse Ox O2 Delivery O2 Flow Rate FiO2 06/06/17 00:00 96.2 79 20 135/76 (95) 97 06/05/17 20:00 97.5 87 20 109/63 (78) 96 106/62 (77) 91/53 (66) 06/05/17 16:00 95.5 87 20 121/69 (86) 100 06/05/17 12:00 97.7 78 20 125/71 (89) 95 I/O 06/05/17 06/05/17 06/05/17 06/06/17 06/06/17 06/06/17 07:00 15:00 23:00 07:00 15:00 23:00 Intake Total 700 ml 360 ml Output Total 800 ml 600 ml Balance -800 ml 100 ml 360 ml Intake Oral 700 ml 360 ml Output Urine Total 800 ml 600 ml # Voids 2 5 1 # Bowel Movements 0 0 Result Diagram: 06/05/17 0604 06/05/17 0604 Objective Remarks GENERAL: Appears much more comfortable this morning. SKIN: Warm and dry. HEAD: Normocephalic. Bandaged head at the surgical site. EYES: No scleral icterus. No injection or drainage. NECK: Supple, trachea midline. No JVD or lymphadenopathy. CARDIOVASCULAR: Regular rate and rhythm without murmurs, gallops, or rubs. RESPIRATORY: Breath sounds equal bilaterally. No accessory muscle use. GASTROINTESTINAL: Abdomen soft, non-tender, nondistended. MUSCULOSKELETAL: No cyanosis, or edema. BACK: Nontender without obvious deformity. No CVA tenderness. EXTREMITIES: Free range of motion to exam. NEUROLOGICAL: She is displaying no lateralizing focal deficits. A/P Assessment and Plan ASSESSMENT 1. Ventriculoperitoneal Shunt. 2. Normal Pressure Hydrocephalus. 3. Orthostatic Hypotension-stable. 4. Hyponatremia and Hypokalemia-repletion done. 5. Pansinusitis. 6. Underweight-secondary to nutritional deficit. 7. Hypertension. 8. Hyperlipidemia. 9. Osteoporosis. 10. Depression. 11. Glaucoma. MEDICALLY IMPROVED STATUS PLAN 1. Continue with the current treatment plan. 2. Neurology and Neurosurgery dispositions are given. 3. Physical Therapy continues. 4. Discharge Planning. 5. DVT and PE prophylaxis. OKAY TO GO TO REHAB TODAY Reuben Singh MD Jun 06, 2017 08:18
[2017-06-06] MEDS ORDERED: MIDO5TAB PO (08:28)
[2017-06-06] MEDS ORDERED: ACET325T15 PO (08:28)
[2017-06-06] MEDS ORDERED: Carbidopa-Levodopa 25-100 Mg PO (08:28)
[2017-06-06] MEDS ORDERED: LISI10TA3 PO (08:28)
[2017-06-06 12:00] VITALS: BP 123/70; PULSE 75; RESP 15; TEMP 97.8; O2SAT 98
== END 2017-06-06 11:59 | DRG 32 ==
LOC: NEPE 15:55 → NEDA 22:33 → N06B 23:36 → N06A 05-24 18:10 → N05B 05-28 09:40 → N03B 06-03 09:43 → N06B 06-03 11:49 → N06A 06-03 16:05
PROVIDERS: ADMIT Internal Medicine; ATTEND Internal Medicine
PROC: 009U30Z Drainage of Spinal Canal with Drainage Device, Percutaneous Approach (ICD-10-PCS; 2017-05-28)
PROC: 00160J6 Bypass Cerebral Ventricle to Peritoneal Cavity with Synthetic Substitute, Open Approach (ICD-10-PCS; principal; 2017-06-03 09:19)
DX: G91.2 (Idiopathic) normal pressure hydrocephalus (principal); E87.1 Hypo-osmolality and hyponatremia; I10 Essential (primary) hypertension; Z68.1 Body mass index [BMI] 19.9 or less, adult; R29.6 Repeated falls; R63.6 Underweight; E78.00 Pure hypercholesterolemia, unspecified; M81.0 Age-related osteoporosis without current pathological fracture; J45.909 Unspecified asthma, uncomplicated; H40.9 Unspecified glaucoma; F32.9 Major depressive disorder, single episode, unspecified; J32.4 Chronic pansinusitis; E87.6 Hypokalemia; I95.1 Orthostatic hypotension; R10.9 Unspecified abdominal pain; Z91.81 History of falling
CPT/HCPCS: 36415; 63741; 70450; 70553; 71045; 72100; 73070; 74018; 77003; 80048; 80053; 81001; 82550; 82552; 82607; 82746; 82945; 83735; 83880; 83921; 83930; 84157; 84207; 84425; 84439; 84443; 84484; 85025; 85027; 85610; 85652; 85730; 86038; 86140; 86430; 86592; 87070; 87205; 89051; 93005; 93306; 94150; 96360; 99152; 99153; A9579; C1755; C9113; J0131; J0690; J0696; J1100; J1580; J1644; J2250; J2370; J2405; J2765; J3010; J3370; J3480; J7030; J7050